=== PATIENT | female | born 1995 | race Caucasian/White ===

== ENCOUNTER 2021-10-09 14:00 | Outpatient (RCR) | payer OTHER, BC, SELFPAY | END 2022-01-30 12:13 | disposition home or self-care (01) | PROVIDERS: Visit Provider Family Medicine | DX: M25.551 Pain in right hip (principal); Z51.89 Encounter for other specified aftercare | CPT/HCPCS: 97110; 97140; 97161 ==

== ENCOUNTER 2021-12-22 20:38 | Outpatient (CLI) | payer OTHER, SELFPAY ==
[2021-12-22] VITALS (11 sets, daily range): BP systolic 126–141; BP diastolic 59–82; PULSE 81–96
[2021-12-22 22:21] LABS: Hemoglobin* 10.9 gm/dL (12.0-16.0); Mean Corpuscular HGB Conc 33 gm/dL (32-36); Mean Corpuscular Hemoglobin 29 pg (26-34); Mean Corpuscular Volume 88 fL (80-100); Platelet Count* 302 K/uL (140-440); Red Blood Count 3.76 m/uL (4.00-5.20); White Blood Count* 13.81 K/uL (4.50-11.00)
[2021-12-22 22:34] LABS: Slide Review Reflex No
[2021-12-22 22:43] LABS: Alanine Aminotransferase* 13 U/L (4-35); Aspartate Amino Transferase* 16 U/L (12-35); Blood Urea Nitrogen* 6 mg/dL (5-24); Creatinine* 0.4 mg/dL (0.5-1.5); Estimated Glomerular Filt Rate 140 ml/min
[2021-12-22 22:52] LABS: Total Protein Urine 14 mg/dL
[2021-12-22 22:53] LABS: Creatinine Urine 35.3 mg/dL
--- NOTE | 2021-12-22 23:14 | PC.OBNST ---
NST Note NST Note Start: 12/22/21 20:49 Freq: ONCE Status: Active Protocol: Document 12/22/21 23:13 FRIDA (Rec: 12/22/21 23:14 FRIDA [id number]) NST Note 1 Para (# of births) 0 EDC 04/03/22 Gestational Age In Weeks & Days 25 Weeks & 3 Days Patient Presented with Complaint(s) of Other If Observation after an injury, describe Blood pressures 140's over 70' s/80's Reactive Yes Appropriate for Gestational Age Yes CHAVEZ Sotomayor, RNC Date 12/22/21 Reactive Yes Appropriate for Gestational Age Yes CHAVEZ Johnson, RN Date 12/22/21 OB NST charge Yes Complete NST Note via Write Note Yes The provider's electronic signature indicates the NST is reactive/appropriate for gestational age. *Note to provider: If an addendum is required, open the patient's chart and click on the note under the Nurse/Allied Health tab.
== END 2021-12-22 23:46 | disposition home or self-care (01) ==
LOC: OB OUT 22:36 → OB 12-23 09:39
PROVIDERS: Visit Provider Family Medicine
DX: O16.2 Unspecified maternal hypertension, second trimester (principal); Z3A.25 25 weeks gestation of pregnancy
CPT/HCPCS: 36415; 59025; 82565; 82570; 84156; 84450; 84460; 84520; 85027; 99213

== ENCOUNTER 2022-02-03 16:25 | Outpatient (CLI) | payer OTHER, BC, SELFPAY ==
[2022-02-03 16:55] VITALS: BP 122/60; PULSE 90; TEMP 37.1
[2022-02-03 17:21] LABS: Amnisure Rom* Negative; Clue Cells <20% Clue Cells Seen (None Seen); Trichomonas No Trichomonas Seen (None Seen); Yeast No Yeast Seen (None Seen)
--- NOTE | 2022-02-03 17:53 | PC.OBNST ---
NST Note NST Note Start: 02/03/22 16:47 Freq: ONCE Status: Active Protocol: Document 02/03/22 17:30 GOMEZ (Rec: 02/03/22 17:53 GOMEZ [id number]) NST Note 1 Para (# of births) 0 EDC 04/03/22 Gestational Age In Weeks & Days 31 Weeks & 4 Days High Risk Factors High Blood Pressure - Gestational Patient Presented with Complaint(s) of Contractions/cramping,Leaking fluid Reactive Yes Appropriate for Gestational Age Yes CHAVEZ Charles Date 02/03/22 Reactive Yes Appropriate for Gestational Age Yes CHAVEZ La Date 02/03/22 OB NST charge Yes Complete NST Note via Write Note Yes The provider's electronic signature indicates the NST is reactive/appropriate for gestational age. *Note to provider: If an addendum is required, open the patient's chart and click on the note under the Nurse/Allied Health tab.
== END 2022-02-03 17:37 | disposition home or self-care (01) ==
LOC: OB CLI 16:26 → OB 16:27
PROVIDERS: Visit Provider Family Medicine
DX: O47.03 False labor before 37 completed weeks of gestation, third trimester (principal); Z3A.31 31 weeks gestation of pregnancy
CPT/HCPCS: 59025; 84112; 87210; 99213

== ENCOUNTER 2022-03-12 16:48 | Inpatient (IN) | payer OTHER, SELFPAY ==
[2022-03-12] VITALS (7 sets, daily range): BP systolic 126–140; BP diastolic 56–75; PULSE 88–109; RESP 14–16; TEMP 36.8–37; BMI 42.3
[2022-03-12] MEDS: miSOPROStoL 25 MCG/0.25 TABLET VAGINAL ×2 (17:47→20:47)
[2022-03-12] MEDS: ACETAMINOPHEN 500 MG TABLET 1000 MG PO (17:47)
--- NOTE | 2022-03-12 17:56 | P.OBHP_ITS ---
OB - H&P: HPI Labor/Induction History of Present Illness Time Seen by Provider: 17:30 Date Seen: 03/12/22 Chief Complaint: The patient is a 26 year old 1 para 0 at 36 6/7 weeks gestation by LMP c/w 9wk US, who presents for cervical ripening for induction d/t gestational htn. Chief complaint: IOL GHTN 37wk david : 1 Para: 0 Date of last menstrual period: 06/27/21 Estimated date of delivery: 04/03/22 Gestational age based on last menstrual period: 36 Indications for induction: induced hypertension Narrative: Silva Arana is a 26 year old 1 para 0 at 36 6/7 weeks gestation by LMP c/w 9wk US, who presents for cervical ripening for induction d/t gestational htn. Gestational htn was diagnosed around 25wks and she has been getting weekly labs, bpp and visits. She had perinatology consult for this around 27wks. See for details. Bp's at home have been below treatment levels. She was admitted to [facility] at 31 6/7 due to persistent headache in setting gestational htn and received betamenthasone. Headache did resolve and so was discharged home. pt reports mild headache now, reports she gets headache whenever is snows and snowing and so she thought nothing of it. Did not take meds. No vision changes. No abdominal pain, ctxs, RUQ pain. Good FM. History of Present Dating criteria: based on LMP care: good care Ultrasounds: normal 1st trimester US, normal mid trimester US and other (has had routine eileen US's. Last one around 32 6/7 wks was 81% EFW) complications: gestational hypertension Medical complications: other Narrative: Gestational htn diagnosed at 25wks. 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 no lesions. Heterozygous for factor V, perinatology rec lovenox 40mg daily x 6wks Labs Blood type: A (+) positive Rubella: immune RPR/VDLR: nonreactive GBS status: negative HBsAG: negative Review of Systems Status of ROS: Reports: 6 or more systems reviewed and unremarkable except as noted in History and below Meds Home Medications and Allergies Home Medications Medication Instructions Recorded Confirmed Type aspirin 81 mg tablet,delayed 81 mg PO DAILY 12/22/21 12/22/21 History release (Adult Low Dose Aspirin) enoxaparin 40 mg/0.4 mL mg 12/22/21 History subcutaneous syringe escitalopram oxalate 10 mg tablet mg 12/22/21 History vit no.95-ferrous 1 tab PO DAILY 12/22/21 12/22/21 History fumarate 28 mg-folic acid 800 mcg tablet () Allergies Allergy/AdvReac Type Severity Reaction Status Date / Time No Known Drug Allergies Allergy Verified 12/22/21 20:56 OB - H&P: Exam Physical Exam: Vital signs: Pulse BP 109 H 140/75 H 03/12/22 17:27 03/12/22 17:27 Constitutional: Constitutional: no acute distress Routine HEENT Exam: Head: Present atraumatic, normal inspection and normocephalic Eye: Present normal appearance ENT: Present mucous membranes moist Detailed Neck Exam: Thyroids: Thyroid: Present normal Routine Respiratory Exam: Respiratory: Present CTA bilaterally Routine Cardiovascular Exam: Cardiovascular: RRR Routine Exam: External: Present normal external exam Detailed Labor and Delivery Exam: Patient Gravid: Yes Dilation (cm): 0 Effacement (%): 10 Cervix position: posterior Consistency: firm Fetus (Single): Station: -2 Heart Rate Baseline: 135 Monitor Accelerations: Present Monitor Decelerations: None Assisted Variability: Moderate (6-25) Routine Extremities Exam: Extremities: Present normal inspection; Absent pedal edema Routine Neurological Exam: Present alert and oriented X3 OB - Problem Based A/P Additional Plan (1) Gestational hyperglycemia: Status: Acute Plan Admit for cervical ripening. Unable to place cook today based on cervix. Plan cytotec induction. discussed with pt and s.o. Preeclamptic labs ordered. gestational htn protocol Tylenol for headache All the above discussed with pt, s.o. and nurse. All ?'s answered and pt in agreement with plan. Delivery/Labor/Induction Plan Induction method: per misoprostol protocol
[2022-03-12 18:43] LABS: SARS PCR* Negative SARS-CoV-2 (Negative)
[2022-03-12 18:48] LABS: Basophils Percent Auto 0.1 % (0.0-3.0); Eosinophils Percent Auto 0.9 % (0.0-7.0); Hematocrit 36.3 % (33.0-51.0); Hemoglobin* 11.8 gm/dL (12.0-16.0); Immature Granulocytes Pct Auto 1.3 %; Lymphocytes Percent Auto 12.3 % (20-44); Mean Corpuscular HGB Conc 33 gm/dL (32-36); Mean Corpuscular Hemoglobin 28 pg (26-34); Mean Corpuscular Volume 86 fL (80-100); Monocytes Percent Auto 4.6 % (0.0-11.0); Neutrophils Percent Auto 80.8 % (42.0-72.0); Platelet Count* 325 K/uL (140-440); RDW Coefficient of Variation % 13.8 % (11.5-15.5); Red Blood Count 4.22 m/uL (4.00-5.20); White Blood Count* 15.64 K/uL (4.50-11.00)
[2022-03-12 18:58] LABS: Slide Review Reflex No
[2022-03-12 19:06] LABS: Alanine Aminotransferase* 19 U/L (4-35); Aspartate Amino Transferase* 21 U/L (12-35); Blood Urea Nitrogen* 5 mg/dL (5-24); Creatinine* 0.4 mg/dL (0.5-1.5); Est. Creatinine Clearance* 222.74; Estimated Glomerular Filt Rate 140 ml/min
[2022-03-12 19:25] LABS: Total Protein Urine 17 mg/dL
[2022-03-12 19:29] LABS: Creatinine Urine 35.3 mg/dL
[2022-03-13] VITALS (41 sets, daily range): BP systolic 114–139; BP diastolic 56–84; PULSE 79–175; RESP 16–17; TEMP 36.9–37.2; O2SAT 96–100
[2022-03-13] MEDS: miSOPROStoL 25 MCG/0.25 TABLET VAGINAL ×2 (01:37→05:53)
--- NOTE | 2022-03-13 06:50 | P.OBPN_ITS ---
Subjective Time Seen by Provider: 06:50 Date Seen: 03/13/22 Narrative: Haley is 26yo at 37wks gestation today admitted last night for cervical ripening prior to induction today due to gestational hypertension. Admit labs did show +urine protein/creatinine so no meets criteria for preeclampsia. Overnight received 4 doses vaginal cytotec--3rd dose was delayed due to variables and decel after tachysystole. pt felt 'cramping' during that time. 4th dose was also delayed as trouble getting consistent strip. 4th dose just given at 5:52. pt turned over on her own around 6:24 and then appears to have had decel--unclear if baby or maternal heart tones. resolved as adjusted monitor. Pt has not felt any cramping or contractions since around midnight. She has no concerns or complaints this morning. Objective Vital Signs: Last Vital Signs Temp 98.6 F 03/13/22 05:50 Pulse 93 03/13/22 05:50 Resp 16 03/13/22 05:50 BP 134/72 03/13/22 05:50 Contractions Monitor mode: External Contraction pattern: Absent Assessment Assessment: induction ongoing Station: -2 Heart Rate Baseline: 130 Assisted Variability: Moderate (6-25) Monitor Accelerations: Present Monitor Decelerations: Episodic (nothing regular, see above summary) Plan Plan: continue cytotec protocol. preecalmpsia protocol
[2022-03-13] MEDS: LACTATED RINGERS 1000 ML 1,000 ML 100 ML IV (09:36)
--- NOTE | 2022-03-13 10:40 | P.OBPN_ITS ---
Subjective Time Seen by Provider: 10:00 Date Seen: 03/13/22 Narrative: Called by RN due to prolonged decel in the 90's. 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 At 9:28 Pfeifer was not picking up so nurse put toco on and FHT's in 90's. Pt turned further on right side and given IVF bolus. FHT's were recovered by 9:35 but then again at 9:40 had decel into 90's that lasted overall 4min and was recovered by 9:44am up into 150's. On my arrival, FHT's were improved and became reactive. Pt reports has not felt contractions but described constant very mild cramping feeling along suprapubic area. Bedside US done and confirms cephalic position. SVE 1cm, 20%, posterior but improved positioning from before. Able to feel infant head and suture line. Discussed situation with patient and SO. Reviewed plan to continue to try for vaginal delivery but if infant continues to have concerning decels may need c/s but not yet as recovered. Plan to monitor to ensure FHT's continue to look good and if so, attempt to place COOK. All ?'s answered. pt in agreement with plan. Objective Vital Signs: Last Vital Signs Temp 98.7 F 03/13/22 10:33 Pulse 93 03/13/22 10:33 Resp 16 03/13/22 10:33 BP 131/64 03/13/22 10:33 Pulse Ox 100 03/13/22 10:20 Comments: see above Pelvic Exam Dilation (cm): 1 Effacement (%): thick Station: -3 Comments: can feel sutures Contractions Monitor mode: External Contraction Frequency: lots of irritability, no contraction pattern Contraction pattern: Absent Assessment Station: -3 Heart Rate Baseline: 135 [facility] Variability: Moderate (6-25) Monitor Accelerations: Present Monitor Decelerations: Prolonged (see above) Plan Plan: see above.
--- NOTE | 2022-03-13 11:33 | PM.OBPNL ---
Subjective Time Seen by Provider: 11:34 Date Seen: 03/13/22 Narrative: Haley reports little cramping, unchanged. No other sxs. no headaches or vision changes. FHT's reactive since 945am without decels Objective Exam: Pt nad, normal affect Cervix: 1/thick/-3 cephalic Vital Signs: Last Vital Signs Temp 98.7 F 03/13/22 10:33 Pulse 93 03/13/22 10:33 Resp 16 03/13/22 10:33 BP 131/64 03/13/22 10:33 Pulse Ox 100 03/13/22 10:20 Pelvic Exam Dilation (cm): 1 Effacement (%): thick Station: -3 Contractions Monitor mode: External Contraction pattern: Absent (lots of irritability) Assessment Assessment: induction ongoing Station: -3 Heart Rate Baseline: 140 [facility] Variability: Moderate (6-25) Monitor Accelerations: Present Monitor Decelerations: None (none since 945) Plan Plan: Cook catheter placed without difficulty Plan low dose pitocin protocol in 4 hours discussed with pt, so and RN
[2022-03-13] MEDS: LACTATED RINGERS 1000 ML 1,000 ML 125 ML IV (11:37)
[2022-03-13] MEDS: hydrOXYzine pamoate 25 MG CAPSULE 100 MG PO (13:49)
[2022-03-13] MEDS: MORPHINE 10 MG/ML inj IM (13:50)
--- NOTE | 2022-03-13 13:53 | PM.OBPNL ---
Subjective Time Seen by Provider: 13:45 Date Seen: 03/13/22 Narrative: Pt reported the cramping from the cook was getting too much for her and she was worried about being exhausted and having long induction and wanted a c/s. I came in to discuss with her in more detail. She is having suprapubic pressure/lower uterine pressure that is constant. She tells me her main concern is having this for 12 hour and then having induction last hours or days longer and she will end up exhausted. Discussed we are still in process of cervical ripening and that we cannot predict length of induction and it can be variable and gave examples. Discussed it can take couple days or longer or once in labor can more quickly, it is often unpredictable. Reviewed reasons we would rec she continue to try for vaginal delivery and discussed risks vs benefits of vaginal delivery vs c/s and risk during procedures and course. Discussed her concerns about exhaustion and labor/ care and mental strength. Discussed option trying Vistaril and morphine to get some rest and help with mental reserve. FHT's overall have been reactive with good accels. She has had few decels but has gone hours with reactive strip as well. Pt wanted me to all the OB surgeon. I called and talked with Dr Edward Cantor and she recommeded pt continue with attempt at vaginal delivery as she did not want to do major surgery on someone if they did not need it. She recommended pt try the vistaril and morphine and get some rest. Dr Edward Cantor did review the pts FHT strip and felt like baby looked good and did not see indiction for c/s at this time. She was willing to come see pt if pt continued to want the c/s. I reviewed this all in more detail with pt and she is willing to try the vistaril and morphine. All ?'s answered. pt in agreement with plan. Of note, we did decrease amount in Cook to 40cc each to try and help with comfort. Objective Vital Signs: Last Vital Signs Temp 98.8 F 03/13/22 11:40 Pulse 99 03/13/22 11:40 Resp 16 03/13/22 11:40 BP 129/61 03/13/22 11:40 Pulse Ox 97 03/13/22 13:48 Pelvic Exam Comments: Cook in place Contractions Monitor mode: External Contraction pattern: Absent (lots of irritability) Assessment Assessment: induction ongoing Station: -3 Heart Rate Baseline: 140 Intermediate Variability: Moderate (6-25) Monitor Accelerations: Present Monitor Decelerations: Variable (none since 945) Plan Plan: pt in agreement to get vistaril and morphine and continue with cervical ripening
[2022-03-13] MEDS: OXYTOCIN 30 unit/500 ML in NS 30 UNIT/500 ML BAG IVPB (17:11)
--- NOTE | 2022-03-13 17:22 | P.OBPN_ITS ---
Subjective Time Seen by Provider: 17:09 Date Seen: 03/13/22 Narrative: pt is now comfortable. got some rest/sleep. awake now and says slight cramping returning but nothing like before. Feels better. Objective Vital Signs: Last Vital Signs Temp 98.8 F 03/13/22 11:40 Pulse 87 03/13/22 16:11 Resp 16 03/13/22 11:40 BP 114/56 L 03/13/22 16:11 Pulse Ox 97 03/13/22 13:48 Pelvic Exam Comments: not assessed as cook in place Contractions Monitor mode: External Contraction pattern: Absent (lots of irritability) Assessment Assessment: induction ongoing Station: -3 Heart Rate Baseline: 130 Detention Variability: Moderate (6-25) Monitor Accelerations: Present Monitor Decelerations: None (none since 94) Plan Plan: pt much more comfortable Again discussed we typically add low dose pitocin and titrate about 4-5 hours after cook placed and reviewed reasons why. Pt was in agreement with starting. Also discussed trying to add back saline to the cook balloons. Initially 60 in each was placed but decreased to 40 when she was so uncomfortable and wanting c/s. She is much more comfortable now. Reviewed adding 5-10 back 1 balloon at a time and pt in agreement. discussed reasons why. Can repeat morphine and vistaril 6 hours from last dose if needed pt with known heterozygous for factor 5. Will get lovenox . Discussed would like to to try and ambulate if able with mobile monitoring and where SCD's if in bed. Reviewed with nursing and pt. pt in agreement with plan. All ?'s answered.
[2022-03-13 17:47] LABS: Platelet Count* 376 K/uL (140-440)
[2022-03-13 18:07] LABS: Alanine Aminotransferase* 19 U/L (4-35); Aspartate Amino Transferase* 19 U/L (12-35); Creatinine* 0.5 mg/dL (0.5-1.5); Est. Creatinine Clearance* 178.19; Estimated Glomerular Filt Rate 133 ml/min
[2022-03-13] MEDS: LACTATED RINGERS 1000 ML 1,000 ML 123 ML IV (19:41)
--- NOTE | 2022-03-13 23:42 | PM.OBPNL ---
Subjective Time Seen by Provider: 23:30 Date Seen: 03/13/22 Narrative: Cook catheter removed by RN. Pt reports no current pain or cramping. She got some sleep. Objective Vital Signs: Last Vital Signs Temp 98.7 F 03/13/22 20:48 Pulse 114 H 03/13/22 20:47 Resp 16 03/13/22 20:48 BP 139/84 03/13/22 20:47 Pulse Ox 97 03/13/22 13:48 Pelvic Exam Dilation (cm): 4 Effacement (%): 50 Station: -2 Comments: Head engaged Contractions Monitor mode: External Contraction pattern: Absent (lots of irritability) Pitocin Rate (mU/min): 5 Assessment Assessment: induction ongoing Station: -2 Amniotic Membrane Status: AROM (at 1133 with clear fluid. ) Status: Category l Heart Rate Baseline: 140 [facility] Variability: Moderate (6-25) Monitor Accelerations: Present Monitor Decelerations: None (none since 945) Plan Plan: Induction for preeclampsia, now s/p 4 doses cytotec, then cook catheter for 12 hours and on low dose pitocin. Cervix now much more favorable. Discussed with pt and she verbally consented for AROM. AROM with clear fluid. Plan continue pitocin per protocol with regular dose pitocin as needed. All ?'s answered.
[2022-03-14] VITALS (85 sets, daily range): BP systolic 83–163; BP diastolic 53–91; PULSE 77–114; RESP 16–18; TEMP 36.8–37.2; O2SAT 90–100
[2022-03-14] MEDS: LACTATED RINGERS 1000 ML 1,000 ML 125 ML IV ×5 (00:33→11:56)
[2022-03-14] MEDS: hydrOXYzine pamoate 25 MG CAPSULE 100 MG PO (02:15)
[2022-03-14] MEDS: MORPHINE 10 MG/ML inj IM (02:16)
[2022-03-14] MEDS: ONDANSETRON 2 MG/ML inj 4 MG IV (03:35)
[2022-03-14] MEDS: ROPIVACAINE 0.2% 100 ml 100 ML 12 MG EPIDURAL (04:12)
[2022-03-14] MEDS: LIDOCAINE 2% (PF) 5 ML VIAL EPIDURAL (04:12)
--- NOTE | 2022-03-14 04:17 | PM.ANBPRC ---
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: Never smoker Meds Home Medications and Allergies Home Medications Medication Instructions Recorded Confirmed Type aspirin 81 mg tablet,delayed 81 mg PO DAILY 12/22/21 03/12/22 History release (Adult Low Dose Aspirin) escitalopram oxalate 10 mg tablet 10 mg PO HS 12/22/21 03/12/22 History vit no.95-ferrous 1 tab PO DAILY 12/22/21 03/12/22 History fumarate 28 mg-folic acid 800 mcg tablet () acyclovir 400 mg tablet mg 03/12/22 History cetirizine 10 mg capsule (Allergy 10 mg PO HS 03/12/22 03/12/22 History Relief (cetirizine)) docusate sodium 100 mg capsule 100 mg PO DAILY 03/12/22 03/12/22 History (Colace) famotidine 10 mg tablet 10 mg PO QHS 03/12/22 03/12/22 History ferrous sulfate 325 mg (65 mg mg 03/12/22 History iron) tablet Allergies Allergy/AdvReac Type Severity Reaction Status Date / Time No Known Drug Allergies Allergy Verified 12/22/21 20:56 Results Labs Labs: Laboratory Results - last 24 hr 03/13/22 03/13/22 17:40 17:40 Plt Count 376 Creatinine 0.5 Estimated Creat Clear 178.19 Estimated GFR 133 AST 19 ALT 19 Vital Signs Vital Signs: Last Vital Signs Temp 98.9 F 03/14/22 01:33 Pulse 97 03/14/22 04:15 Resp 16 03/14/22 01:33 BP 139/76 03/14/22 04:15 Pulse Ox 98 03/14/22 04:12 Weight: 130.181 kg Height: 175.26 cm Anesthesia Procedures Epidural Insertion Start Time: 03:55 Stop Time: 04:30 Start Date: 03/14/22 Stop Date: 03/14/22 Reason for Block: procedure for pain Patient Position: sitting Performed By: Jose Ibrahim Preanesthetic Checklist: IV checked, site marked, risks and benefits discussed, monitors and equipment checked, pre-op evaluation, timeout performed and anesthesia consent Prep: chlorhexidine gluconate Monitoring: blood pressure monitoring, continuous pulse oximetry and heart rate Approach: midline Vertebral Space: lumbar (1-5) Epidural Technique: PARESH saline Needle Type: Tuohy needle Injection Technique: continuous catheter Needle gauge: 17 Needle Length (cm): 10 cm Needle Insertion Depth (cm): 5 Catheter Gauge: 19 Catheter Type: multi-orifice Catheter at skin depth (cm): 10 Test Dose Result: negative
[2022-03-14] MEDS: PHENYLEPHRINE 100 MCG/ML SYRINGE IVP ×2 (04:30→04:35)
--- NOTE | 2022-03-14 05:17 | PM.OBPNL ---
Subjective Time Seen by Provider: 05:17 Date Seen: 03/14/22 Narrative: Called to pt room at 430am due to decel. Prior to this FHT had been reactive. She had AROM around 2333 and FHT remained good. At 0008 she had decel to 90bmp that resolved with changing from left to right side and IVF given. FHT continued to look well after thsi point. At 215 she recieved Morphine and hydroxyzine due to suprapubic pain/cramping that was constant. FHT continued to be category 1 at that time. This did not improve her pain and so she requested epidural. Epidural was done around 4am. At 0418 while on her back she had prolonged decel and was turned to left, then R and IVF given and FHT increased for 2min. Then at 0426 had another decel lasting approxiamtely 4min and moved to hands and knees and pitocin turned off. FHT improved again for 2min and then dropped again to 90bpm, recovered briefly and dropped again to 80bpm. This last 2 decels were about a minute each. While on H&K I checked her cervix and difficult to assess but head felt much lower. Once able she was rechecked on her right side and was 6cm/80/0station. Of note, no low bp's were documented. She did have 1 bp that appeared elevated at 163/87 but this was checked while she was on hands and knees and holding herself up. Recheck bp once on side was 112/64. FHT without further decel this time. Internal contraction monitor placed. Of note, OR crew and OB surgeon was called while pt was on hands and knees due to the recurrent decels. OR crew is currently here. Pt reports she is comfortable at this time. Good relief from epidural. Pitocin remains off. Objective Vital Signs: Last Vital Signs Temp 98.3 F 03/14/22 04:54 Pulse 93 03/14/22 05:13 Resp 18 03/14/22 04:54 BP 122/57 L 03/14/22 05:13 Pulse Ox 98 03/14/22 04:12 Pelvic Exam Dilation (cm): 6 Effacement (%): 80 Station: 0 Contractions Monitor mode: Internal (just placed internal contraction monitor. ) Contraction Frequency: small contractions approximately every 4min now at 5:30 Contraction pattern: Regular (lots of irritability) Pitocin Rate (mU/min): 0 Assessment Assessment: induction ongoing Station: 0 Amniotic Membrane Status: AROM (at 1133 with clear fluid. ) Heart Rate Baseline: 130 [employer] Variability: Moderate (6-25) Monitor Accelerations: Present Monitor Decelerations: Prolonged (see above narrative, now recovered anf 130bpm with moderate variability and +accels and no further decels as of 5:35am) Plan Plan: Induction for gestational hypertension now with preeclampsia due to +urine testing on admit. Prolonged decels currently resolved, off pitocin and monitoring closely. OR crew here. Dr Edward Cantor on her way and will reassess situation. Discussed current situation with pt, and all ?'s answered. Addendum: FHT have continued to be reactive and Dr Edward Cantor rec restarting pitocin at 1/2 dose.
[2022-03-14 06:21] LABS: Hematocrit 35.3 % (33.0-51.0); Hemoglobin* 11.7 gm/dL (12.0-16.0); Mean Corpuscular HGB Conc 33 gm/dL (32-36); Mean Corpuscular Hemoglobin 28 pg (26-34); Mean Corpuscular Volume 86 fL (80-100); Platelet Count* 304 K/uL (140-440); Red Blood Count 4.13 m/uL (4.00-5.20); White Blood Count* 20.59 K/uL (4.50-11.00)
[2022-03-14 06:26] LABS: Slide Review Reflex No
[2022-03-14 06:36] LABS: Alanine Aminotransferase* 17 U/L (4-35); Aspartate Amino Transferase* 18 U/L (12-35); Blood Urea Nitrogen* 5 mg/dL (5-24); Creatinine* 0.5 mg/dL (0.5-1.5); Est. Creatinine Clearance* 178.19; Estimated Glomerular Filt Rate 133 ml/min
[2022-03-14 06:42] LABS: INR 0.96 (0.91-1.10); Prothrombin Time 13.4 Seconds
[2022-03-14 06:43] LABS: Fibrinogen* 638 mg/dL (200-450)
[2022-03-14 07:08] LABS: Total Protein Urine 15 mg/dL
[2022-03-14 07:09] LABS: Creatinine Urine 48.5 mg/dL
[2022-03-14] MEDS: lidocaine HCL 2 % JELLY (TOP) STERILE 6 ML UR (08:18)
--- NOTE | 2022-03-14 08:41 | P.OBPN_ITS ---
Subjective Time Seen by Provider: 08:02 Date Seen: 03/14/22 Narrative: Haley was laying on her back for nursing cares when starting have recurrent late decelerations. She was turned to Left side and pitocin was turned off. IVF. She then had 2 further more subtle lates which then decels resolved. Cervix checked and 6/100%/0 station. New IUPC was placed once FHT stabilized as prior IUPC did not appear to be picking up well. Pt comfortable with epidural. Objective Vital Signs: Last Vital Signs Temp 98.3 F 03/14/22 04:54 Pulse 82 03/14/22 08:36 Resp 18 03/14/22 04:54 BP 108/57 L 03/14/22 08:36 Pulse Ox 98 03/14/22 04:12 Pelvic Exam Dilation (cm): 6 Effacement (%): 100 Station: 0 Comments: IUPC changed Contractions Monitor mode: Internal (just placed internal contraction monitor. ) Contraction pattern: Regular (prior to turning off pitocin) Pitocin Rate (mU/min): 0 Assessment Station: 0 Amniotic Membrane Status: AROM (at 1133 with clear fluid. ) Heart Rate Baseline: 150 [facility] Variability: Moderate (6-25) Monitor Accelerations: Present Monitor Decelerations: Late (see above narrative, now resolved. ) Plan Plan: pt is making labor progress and FHT's will look great for hours and then will have significant decels. She is making progress and was on back when most recent late decels occured. Now resolved. Discussed with Dr Sy OB surgeon ground operations superintendent. If FHT remain improved, will plan to restart pitocin at 1/2 dose and increase per protocol. If concerning decels return and need to turn off pitocin again, likely proceed with c/s. Discussed with pt and and they are in agreement with plan. All 's answered.
[2022-03-14] MEDS: miSOPROStoL 800 MCG/4 TABLET PR (11:34)
[2022-03-14] MEDS: CEFAZOLIN 1 GM inj 3 GM IVP (11:35)
--- NOTE | 2022-03-14 12:04 | CRLHL7_ITS ---
For Patients: As a result of the Century Cures Act, medical imaging exams and procedure reports are released immediately into your electronic medical record. You may view this report before your referring provider. If you have questions, please contact your health care provider. INDICATION: Postoperative section. Emergent section. [place]. Evaluate for foreign bodies. TECHNIQUE: AP portable view of the lower abdomen and upper to mid pelvis. FINDINGS: There is a slender metallic radiodensity projected over the upper to mid lumbar spine extending from the left upper quadrant. This may reflect some sort of stimulation device or epidural access line more likely. Please correlate clinically. No sponges or surgical instruments are identified within the lower abdomen/pelvis. IMPRESSION: Probable epidural line. Please correlate clinically. The examination is otherwise negative. Dictated by Kieran Avery MD @ 03/14/2022 1:39:38 PM (Electronically Signed)
--- NOTE | 2022-03-14 12:19 | PM.OBPNL ---
Subjective Time Seen by Provider: 11:14 Date Seen: 03/14/22 Narrative: Pt reported feeling cramping/pain right lower quadrant and left side completely numb. Was laying on left side. Estefany was utilized by nursing to turn pt to her right side but during this process she was on her back as being transitioned with estefany. She was then repositioned on her right side. During this time FHT deceled into 90's and recovered. BP cuff also went off while moving pt and read 83/53 but pt was being moved during this time and cuff not in correct place. FHT's recovered for 4min and then started having prolonged deceleration which continued to decrease despite moving patient quickly back to her left and then putting on hands and knees. Pitocin had already been turned off during earlier deceleration. IVF were running. Cervix checked and still 6cm, scalp replaced. Code white was called when no improvement with hands and knees. Taken to OR for stat c/s. Objective Vital Signs: Last Vital Signs Temp 98.6 F 03/14/22 08:59 Pulse 94 03/14/22 11:07 Resp 16 03/14/22 08:59 BP 83/53 L 03/14/22 11:07 Pulse Ox 98 03/14/22 04:12 Pelvic Exam Dilation (cm): 6 Effacement (%): 100 Station: 0 Contractions Monitor mode: Internal (just placed internal contraction monitor. ) Contraction pattern: Regular (prior to turning off pitocin) Pitocin Rate (mU/min): 0 Assessment Station: 0 Amniotic Membrane Status: AROM (at 1133 with clear fluid. ) Status: Category lll Heart Rate Baseline: 150 Monitor Decelerations: Prolonged (see above narrative, now resolved. )
[2022-03-14] MEDS: KETOROLAC 30 MG/ML inj IVP ×2 (12:51→18:29)
--- NOTE | 2022-03-14 13:24 | W.ANESCHARGE ---
Anesthesia Charges Start Date/Time Anesthesia Start Date: 03/14/22 Anesthesia Start Time: 11:22 Stop Date/Time Anesthesia Stop Date: 03/14/22 Anesthesia Stop Time: 13:20 Summary Emergency: Yes
--- NOTE | 2022-03-14 13:26 | P.NB_ITS ---
Nerve Block Nerve Block Time Seen by Provider: 13:10 Date Seen: 03/14/22 Type of block requested by surgeon for post-operative analgesia: TAP Side: bilateral Time out performed: Yes Verification of patient name: Yes Verification of date of : Yes Site marking: site marked Name of person performing procedure: olvera Continuous monitoring Was continuous monitoring of O2 sat, B/P, cardiac nurse practitioner, recorded every 15 minutes?: Yes Procedure Checklist: sterile prep, needles and gloves Ultrasound guided. Images saved: Yes Medications given in 5ml increments after negative aspiration: Marcaine %: 0.25 mL: 30 Needle gauge: 20 and Exparel mL: 10 Patient tolerated procedure well: Yes Block Charges Block Charge (with Pro Fee): TAP Bilateral Use of Ultrasound Machine for Block: Yes- US Guidance/pain block
--- NOTE | 2022-03-14 16:23 | P.OBPRC_ITS ---
Procedure Pre-op/Post-op diagnoses: Pre-Op/Post-Op Diagnoses 1. at 37 1/7 weeks 2. Non reassuring hear rate 3. Preeclampsia w/o severe features Procedure Done: only Procedure Details: Procedures Operation Date: 03/14/22 11:30 Actual Procedure Side Surgeon p Section Amina Salamanca MD Electrotype Caster: Amina Salamanca Estimated blood loss (mL): 1,500 Disposition: floor Anesthesia type: General Complications: Uterine atony, hysterotomy extension, intraoperative hemorrhage Narrative: PREOPERATIVE DIAGNOSES: 1. Intrauterine at 37 1 /7 weeks' gestation. 2. Non reassuring heart rate, prolonged deceleration 3. Preeclampsia without severe features POSTOPERATIVE DIAGNOSES: 1.Same, now delivered NAME OF PROCEDURE: Primary low transverse section. ANESTHESIA: General, epidural was still in place COMPLICATIONS: hemorrhage secondary to uterine atony, hysterotomy extension into the lower uterine segment QUANTITATIVE BLOOD LOSS:1500mL DRAINS: Acosta to gravity. FINDINGS: Live-born male , OP presentation, Apgars 5 and 8 at 1 and 5 minutes respectively. weight pending. PROCEDURE: Amandeep candelaria was paged overhead while I was in clinic and received a message from nursing to go immediately to labor and delivery. When I arrived I was notified that telephone services sales representative provider was busy doing another and I was as ked to attend this emergency delivery. I was able to see that the monitor showed a prolonged heart rate deceleration and she was only 6cm dilated. Patient was at this time being emergently transferred to OR 1. Patient was on hands and knees on the bed while transferred and moved to OR bed. She already had a acosta catheter in place. Her abdomen was splashed with Betadine and covered with ster ile drape. Anesthesia proceeded to intubate and procedure was started emergently.A Pfannenstiel skin incision was made with a scalpel about 2 cm above symphysis pubic bone, 8-10 cm in length. This incision was carried down to the underlying layer of fascia with the scalpel. The fascia was incised in the midline and the incision extended laterally. The rectus muscles were then in the midline. The Axel O retractor was then placed into the incision. The lower uterine segment was then incised in a transverse fashion with the scalpel. Upon entry into the uterus, clear amniotic fluid was noted. The uterine incision was extended cephalo caudally with blunt finger fractionation. The head was lifted out of the pelvis and brought to incision easily, the rest of the body was delivered with fundal pressure. The cord was clamped and cut and baby was transferred to the warmer for evaluation. The placenta was delivered spontaneously with umbilical cord traction and fundal massage. The uterus was cleared of all clots and debris. Hysterotomy extension was seen towards the left lower uterine segment of about 5cm. There was also a small extension on the anterior superior wall of the hysterotomy of about 2cm. The uterus was floppy, atonic. Asked to give 1g of TXA, to look for Cytotec and Hemabate. (She did receive 800mcg of cytotec rectally and 2 doses of Hemabate).The hysterotomy extension apex on the lower uterine segment was identified and this was closed in various layers with Vicryl 0 and chromic 2-0. Hemostasis was secured. The anterior uterine wall on the left side hysterotomy extension was also approximated with Vicryl 0. The bilateral broad ligament was identified to be intact. The bladder reflection was mobilized to ensure that hysterotomy extension did not cause any damage to bladder and this was confirmed. Bladder was found intact. The uterine incision was reapproximated in a running locking fashion with a 0 Vicryl suture. A 2nd layer of the same suture was used to imbricate in horizontal fashion. The gutters were inspected and cleared of blood clot. All instruments and retractors were removed. The subfascial tissues were carefully inspected and hemostasis assured. The fascia was reapproximated in a running fashion with a looped 0 Vicryl suture. The subcutaneous tissues were inspected and hemostasis was assured. The subcutaneous fat layer was reapproximated with interrupted sutures of 3-0 Vicryl. The skin was closed in a subcuticular fashion with 4-0 Monocryl. Silver dressing was applied. The patient tolerated the procedure well. Sponge, lap, needle, and instrument counts were reported as correct. Also, due to the emergency nature of procedure an X- Ray was obtained at OR and this confirmed no foreign objects in the abdomen. The patient was taken to the recovery room, awake, and in stable condition. She did receive 2 grams of IV Ancef and 500mg of Azithromycin during surgery. Redkey total score - 1 minute: 5 total score - 5 minute: 8
[2022-03-14] MEDS: ESCITALOPRAM 10 MG TABLET PO (20:59)
[2022-03-15] VITALS (9 sets, daily range): BP systolic 117–137; BP diastolic 72–84; PULSE 96–117; RESP 16–18; TEMP 36.8–37.6; O2SAT 97–100
[2022-03-15] MEDS: KETOROLAC 30 MG/ML inj IVP ×4 (02:38→21:24)
[2022-03-15 07:34] LABS: Hemoglobin* 8.7 gm/dL (12.0-16.0)
[2022-03-15] MEDS: DOCUSATE SODIUM 100 MG CAPSULE PO (08:26)
[2022-03-15] MEDS: ENOXAPARIN 40 MG/0.4 ML INJ SUBCUT (08:58)
--- NOTE | 2022-03-15 12:16 | PM.OBPNCS1 ---
OB - PN: A/P Assessment and Plan (1) S/P section: Problem details: Status post emergent primary under general anesthesia for indication of bradycardia at 37 weeks, 1 day gestation on 03/14/2022 Status: Acute Assessment and Plan: Appropriate postoperative course. (2) Pre-eclampsia affecting puerperium: Status: Acute Assessment and Plan: Normotensive since delivery. Should blood pressures become elevated, I will begin antihypertensive medication. (3) Anemia associated with acute blood loss: Status: Acute Assessment and Plan: Asymptomatic. Begin ferrous sulfate twice daily. (4) Heterozygous factor V Leiden mutation: Status: Acute Assessment and Plan: Continue Lovenox 40 mg subQ daily for thromboprophylaxis for 6 weeks. Plan Plan: routine postop care Comments: Anticipate discharge tomorrow OB - PN: Subj Subjective Date Seen: 03/15/22 Interval history: Silva is a 26 yo G1 now P1-0-0-1 woman who is s/p emergent delivery at 37 1/7 weeks on 03/14/22 in the setting of IOL for preeclampsia without severe features. OB Problem List: 1. [facility] for care, Dr. Yeung 2. Gestational HTN diagnosed at 25wks. Preeclampsia without severe features diagnosed at admit. 3. 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 4. Heterozygous for factor V, perinatology rec lovenox 40mg daily x 6 wks 5. Intrapartum hemorrhage. Narrative: Silva is pain is well managed. She is pumping and also giving her a little bit of formula because of low blood sugars. He is LGA. She denies any heavy bleeding. She is ambulating and urinating without difficulty. She is tolerating regular diet. She is passing flatus but has not yet had a bowel movement. She was started on Lovenox this morning. OB - PN: Obj Exam Physical Exam: Vital signs: Temp Pulse Resp BP Pulse Ox O2 Del Method 98.4 F 96 18 137/79 97 03/15/22 08:25 03/15/22 08:25 03/15/22 08:25 03/15/22 08:25 03/15/22 08:25 03/15/22 08:25 Narrative: General: Pleasant, no acute distress Heart: Regular rate and rhythm, no murmur or gallop Lungs: Clear to auscultation bilaterally Abdomen: Soft, nontender, fundus well below umbilicus, bowel sounds present Incision: Dressing clean, dry, intact Lower extremities: No edema or erythema Urinary Catheter Management: 3-way Urethral: Cath placed during this visit: no OB - PN: Obj Data Labs Labs: Laboratory Results - last 24 hr 03/15/22 07:24 Hgb 8.7 L
[2022-03-15] MEDS: FERROUS SULFATE 325 MG TABLET PO ×2 (13:33→17:38)
[2022-03-15] MEDS: ACETAMINOPHEN 500 MG TABLET 1000 MG PO (17:38)
[2022-03-15] MEDS: ESCITALOPRAM 10 MG TABLET PO (21:29)
[2022-03-16] MEDS: ACETAMINOPHEN 500 MG TABLET 1000 MG PO ×3 (00:32→13:11)
[2022-03-16] MEDS: IBUPROFEN 600 MG TABLET PO ×2 (02:42→09:01)
[2022-03-16 04:15] VITALS: BP 138/84; PULSE 88; RESP 18; TEMP 36.6; O2SAT 98
[2022-03-16 05:48] LABS: Basophils Percent Auto 0.3 % (0.0-3.0); Eosinophils Percent Auto 1.2 % (0.0-7.0); Hematocrit 26.6 % (33.0-51.0); Hemoglobin* 8.9 gm/dL (12.0-16.0); Immature Granulocytes Pct Auto 1.3 %; Lymphocytes Percent Auto 21.5 % (20-44); Mean Corpuscular HGB Conc 34 gm/dL (32-36); Mean Corpuscular Hemoglobin 28 pg (26-34); Mean Corpuscular Volume 85 fL (80-100); Monocytes Percent Auto 6.6 % (0.0-11.0); Neutrophils Percent Auto 69.1 % (42.0-72.0); Platelet Count* 271 K/uL (140-440); RDW Coefficient of Variation % 13.7 % (11.5-15.5); Red Blood Count 3.13 m/uL (4.00-5.20); Slide Review Reflex No; White Blood Count* 12.93 K/uL (4.50-11.00)
[2022-03-16 08:30] VITALS: BP 123/80; PULSE 89; RESP 18; TEMP 36.7; O2SAT 98
[2022-03-16] MEDS: DOCUSATE SODIUM 100 MG CAPSULE PO (09:01)
[2022-03-16] MEDS: FERROUS SULFATE 325 MG TABLET PO (09:02)
[2022-03-16] MEDS: ENOXAPARIN 40 MG/0.4 ML INJ SUBCUT (09:02)
--- NOTE | 2022-03-16 09:56 | PM.OBDSCS1 ---
DS: Providers Provider Date Seen: 03/16/22 Date of admission: 03/12/22 16:48 Primary care physician: Tomasa Gallegos MD Admitting Clinician: Tomasa Gallegos MD Attending Physician on discharge: Amina Salamanca MD Date of Discharge: 03/16/22 DS: Diagnosis Discharge Diagnosis (1) Heterozygous factor V Leiden mutation: Status: Acute (2) Anemia associated with acute blood loss: Status: Acute (3) Pre-eclampsia affecting puerperium: Status: Acute (4) S/P section: Status: Acute Problem details: Status post emergent primary under general anesthesia for indication of bradycardia at 37 weeks, 1 day gestation on 03/14/2022 Exam Narrative: Exam Narrative: General: Pleasant, no acute distress Heart: Regular rate and rhythm, no murmur or gallop Lungs: Clear to auscultation bilaterally Abdomen: Soft, nontender, fundus well below umbilicus, normoactive bowel sounds in all 4 quadrants new line incision clean, dry, and intact. There is no surgical glue above the incision. Lower extremities: 2+ edema bilaterally, no erythema Const: Vital Signs, click to edit/add: Vital Signs - 24 hr 03/15/22 13:25 03/15/22 17:20 03/15/22 22:12 Temperature 98.5 F 98.8 F 98.2 F Pulse Rate [Right Blood Pressure Cuf f] 96 106 H 101 H Respiratory Rate 16 18 18 Blood Pressure [Ri ght Radial Artery] 117/74 136/82 122/72 Pulse Oximetry 97 97 99 Oxygen Delivery Me thod Room Air Room Air Room Air 03/16/22 04:15 Temperature 97.8 F Pulse Rate [Right Blood Pressure Cuf f] 88 Respiratory Rate 18 Blood Pressure [Ri ght Radial Artery] 138/84 Pulse Oximetry 98 Oxygen Delivery Me thod Room Air DS: Data Data Completed and Pending Labs on day of discharge: Labs from last 24 hours 03/16/22 05:42 WBC 12.93 H RBC 3.13 L Hgb 8.9 L Hct 26.6 L MCV 85 MCH 28 MCHC 34 RDW Coeff of Kermit 13.7 Plt Count 271 Neut % (Auto) 69.1 Lymph % (Auto) 21.5 [place] % (Auto) 6.6 Eos % (Auto) 1.2 Baso % (Auto) 0.3 Neut # (Auto) 8.90 H Lymph # (Auto) 2.80 [place] # (Auto) 0.90 Eos # (Auto) 0.20 Baso # (Auto) 0.00 OB - DS: Summary Hospital Course Hospital Course: Silva is a 26 yo G1 now P1-0-0-1 woman who is s/p emergent delivery at 37 1/7 weeks on 03/14/22 in the setting of IOL for preeclampsia without severe features.? OB Problem List: 1.? [facility] for care, Dr. Yeung 2.? Gestational HTN diagnosed at 25wks.? Preeclampsia without severe features diagnosed at admit.? 3.? 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 4.? Heterozygous for factor V, perinatology rec lovenox 40mg daily x 6 wks 5.? Intrapartum hemorrhage.? Blood pressures have been within high normal range throughout her course. Today, on day 2, Silva is doing well. She has not used any oxycodone during her course.? She is .? She denies any heavy bleeding.? She is ambulating and urinating without difficulty.? She is tolerating regular diet.? She is passing flatus but has not yet had a bowel movement. Peripartum Data Procedures: Procedures Operation Date: 03/14/22 11:30 Actual Procedure Side Surgeon p Section Amina Salamanca MD [place] Gender: Male Time Spent with Patient Time attestation: Total time spent providing and/or coordinating discharge services: Discharge Plan Discharge Disposition: Home, Self-Care Date of Admission: 03/12/22 16:48 Attending Provider on Discharge: Amina Salamanca Primary Care Provider: Tomasa Gallegos Condition: Improved Anticipated Discharge Date/Time: 03/16/22 09:59 Discharge Medications: New acetaminophen 500 mg Tablet 1,000 mg PO Q6H PRN (Reason: Pain) Qty: 0 0RF ferrous sulfate 325 mg (65 mg iron) Tablet 325 mg PO BIDWM Qty: 60 0RF docusate sodium 100 mg Capsule 100 mg PO DAILY Qty: 0 0RF ibuprofen 600 mg Tablet 600 mg PO Q6H PRN (Reason: Pain) Qty: 60 0RF oxycodone 5 mg Tablet 5 - 10 mg PO Q4H PRN (Reason: Pain) Qty: 15 0RF enoxaparin 40 mg/0.4 mL Syringe 40 mg subcut Q24H Qty: 10 0RF Lanolin (HPA) 100 % Cream 1 applic topical Q1H PRNQty: 0 0RF polyethylene glycol 3350 [Miralax] 17 gram/dose powder 17 g PO DAILY PRN (Reason: constipation) Qty: 119 0RF Continued escitalopram oxalate 10 mg tablet 10 mg PO HS Label Comments: TAKE 1 TABLET BY MOUTH EVERY MORNING PNV cmb#95-ferrous fumarate-FA [] 28 mg iron- 800 mcg tablet 1 tab PO DAILY famotidine 10 mg tablet 10 mg PO QHS docusate sodium [Colace] 100 mg capsule 100 mg PO DAILY Discontinued aspirin [Adult Low Dose Aspirin] 81 mg tablet,delayed release (DR/EC) 81 mg PO DAILY acyclovir 400 mg tablet Label Comments: TAKE 1 TABLET (400 MG) BY MOUTH THREE TIMES DAILY. ferrous sulfate 325 mg (65 mg iron) tablet Label Comments: TAKE 1 TABLET BY MOUTH EVERY OTHER DAY Allergy Relief (cetirizine) 10 mg capsule 10 mg PO HS Discharge Orders: Discharge Order (Routine); Ordered 03/16/22 Ordered By: Amina Salamanca Activity Detail: No lifting greater than 20 lb for 6 weeks. Nothing per vagina for 6 weeks. Do not submerge incision under water for 3 [address] while using narcotic pain medications. Discharge Diet: Regular Follow Up Appointments: Tomasa Gallegos MD [Primary Care Provider] - Amina Salamanca MD [Staff Physician] - [facility] Inst[facility] Discharge Comments: 5 days for BP check in clinic 2 weeks [facility] [address] visit [address] Dr[address] Yeung
== END 2022-03-16 15:11 | disposition home or self-care (01) | DRG 787 ==
PROVIDERS: Family Medicine; Obstetrics & Gynecology; Admitting Provider Family Medicine; PCP Family Medicine; Visit Provider Obstetrics & Gynecology
PROC: (CPT 59514; principal; 2022-03-14 11:15)
DX: O13.4 Gestational [pregnancy-induced] hypertension without significant proteinuria, complicating childbirth (principal); D62 Acute posthemorrhagic anemia; O99.12 Other diseases of the blood and blood-forming organs and certain disorders involving the immune mechanism complicating childbirth; D68.51 Activated protein C resistance; O98.32 Other infections with a predominantly sexual mode of transmission complicating childbirth; O76 Abnormality in fetal heart rate and rhythm complicating labor and delivery; O14.04 Mild to moderate pre-eclampsia, complicating childbirth; A60.00 Herpesviral infection of urogenital system, unspecified; O72.1 Other immediate postpartum hemorrhage; Z37.0 Single live birth
CPT/HCPCS: 01967; 01968; 36415; 59200; 64488; 74018; 76815; 76942; 82565; 82570; 84156; 84450; 84460; 84520; 85018; 85025; 85027; 85049; 85384; 85610; 86850; 86900; 86901; 87635; 88307; 99140; A9270; C9290; J0330; J0690; J1100; J1650; J1885; J2250; J2270; J2274; J2370; J2405; J2590; J2704; J2795; J3010; J3490; J7120

== ENCOUNTER 2022-04-12 15:46 | Emergency (ER) | payer OTHER, SELFPAY ==
[2022-04-12 16:17] VITALS: BP 156/77; PULSE 110; RESP 22; TEMP 38.1; O2SAT 100; BMI 36.9
== END 2022-04-12 17:35 | disposition left against medical advice (07) ==
LOC: ED 17:33
PROVIDERS: PCP Family Medicine
DX: Z53.21 Procedure and treatment not carried out due to patient leaving prior to being seen by health care provider (principal)

== ENCOUNTER 2022-09-27 04:47 | Emergency (ER) | payer OTHER, SELFPAY ==
[2022-09-27 05:05] VITALS: BP 123/76; PULSE 73; RESP 18; TEMP 36.3; O2SAT 100
--- NOTE | 2022-09-27 05:12 | ED_ITS ---
HPI - Extremity Injury (Upper) General Time Seen by Provider: 05:12 Date Seen: 09/27/22 Chief Complaint: Extremity Pain/Injury, Upper Stated Complaint: Left arm pain, possible clot Time Seen by Provider: 09/27/22 05:12 Source: patient, RN notes reviewed and old records reviewed Mode of arrival: ambulatory Limitations: no limitations History of Present Illness HPI narrative: Patient is a very pleasant 26-year-old who finished 6 month course of Eliquis after having experienced a PE. Patient was noted to have a with her child and was placed on Lovenox for DVT prophylaxis but unfortunately when on to experience left arm pain and left-sided chest pain and was found to be PE. She was placed on Eliquis and completed that course. She has been doing well since then until approximately 48 hours ago when she began experiencing vague pain in her left arm. She states that she had noted this prior to getting the PE last time. She notes nobody ever scanned her arms or legs with ultrasound and thus do not know the origin of the PE. Patient notes that when she lifts her arm up it seems to hurt a little bit worse. She states she cannot really press on any specific area that causes her discomfort but she is gesturing to the deltoid and upper shoulder area. She denies any recent trauma falls or injury to this area. She has not taken anything for the discomfort. She is worried that she has a blood clot. Patient is factor 5 heterozygous as is her sister and her father and other family members. No one else has had a clot in the past. Related Data Home Medications Medication Instructions Recorded Confirmed vit no.95-ferrous 1 tab PO DAILY 12/22/21 03/28/22 fumarate 28 mg-folic acid 800 mcg tablet () docusate sodium 100 mg capsule 100 mg PO DAILY 03/12/22 03/28/22 (Colace) labetalol 200 mg tablet 200 mg PO BID 03/31/22 03/31/22 Previous Rx's Medication Instructions Recorded docusate sodium 100 mg capsule 100 mg PO DAILY #0 caps 03/16/22 enoxaparin 40 mg/0.4 mL 40 mg (0.4 mL) subcut Q24H #10 ea 03/16/22 subcutaneous syringe ferrous sulfate 325 mg (65 mg 325 mg PO BIDWM #60 tabs 03/16/22 iron) tablet ibuprofen 600 mg tablet 600 mg PO Q6H PRN Pain #60 tabs 03/16/22 Allergies Allergy/AdvReac Type Severity Reaction Status Date / Time No Known Drug Allergies Allergy Verified 04/12/22 16:17 Review of Systems Status of ROS: Reports: 6 or more systems reviewed and unremarkable except as noted in History and below Const: Denies: fever or chills ENMT: Denies: neck pain or difficulty swallowing Cardio: Denies: chest pain, swelling of feet/ankles, lightheadedness or shortness of breath with exertion Resp: Denies: shortness of breath or cough GI: Denies: abdominal pain, nausea or difficulty swallowing Musculo: Denies: neck pain PFSH PFSH Medical History Encounter for visit ?Z39.2 - Encounter for routine follow-up (ICD-10) History of abnormal cervical Pap smear (12/28/20) ?Z87.42 - Personal history of other diseases of the female genital tract (ICD-10) Heterozygous factor V Leiden mutation ?D68.51 - Activated protein C resistance (ICD-10) Anxiety ?F41.9 - Anxiety disorder, unspecified (ICD-10) 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 - Herpesviral infection of urogenital system, unspecified (ICD-10) Surgical History S/P section (03/14/22) ?Z98.891 - History of uterine scar from previous surgery (ICD-10) Hx of tympanostomy ?Z98.890 - Other specified postprocedural states (ICD-10) [place] teeth extracted ?K08.409 - Partial loss of teeth, unspecified cause, unspecified class (ICD- 10) H/O colposcopy with cervical biopsy ?Z98.890 - Other specified postprocedural states (ICD-10) Hx of tonsillectomy ?Z90.89 - Acquired absence of other organs (ICD-10) 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 Smoking 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 External ears eyes nose clear heart with regular rate and rhythm without additional heart sounds or murmur. Lungs are clear in all lung ybarra. Examination of the shoulder shows no obvious swelling. Prominence of a superficial vein noted on the biceps. No pain with palpation. Distally pulses are intact as is sensation. Patient has negative impingement signs. Range of motion of shoulder is full. Lower extremities without edema no calf tenderness. Const: Vital Signs, click to edit/add: Vital Signs - 24 hr 09/27/22 05:05 Temperature 97.3 F L Pulse Rate [Left P ulse Oximeter] 73 Respiratory Rate 18 Blood Pressure [Ri ght Forearm] 123/76 Pulse Oximetry 100 Oxygen Delivery Me thod Room Air Course Course Hospital Course: At this time will obtain EKG, basic panel, CBC, troponin. Will call ultrasound in to do ultrasound of left upper extremity. Differential diagnosis does include PE, rotator cuff tendinitis, musculoskeletal pain. Vital Signs Vital signs: Initial Vital Signs Temperature 97.3 F L 09/27/22 05:05 Temperature Source Temporal Artery Scan 09/27/22 05:05 Pulse Rate 73 09/27/22 05:05 Pulse Rhythm Regular 09/27/22 05:05 Respiratory Rate 18 09/27/22 05:05 Blood Pressure 123/76 09/27/22 05:05 Blood Pressure Mean 91 09/27/22 05:05 Blood Pressure Position Sitting 09/27/22 05:05 Pulse Oximetry 100 09/27/22 05:05 Oxygen Delivery Method Room Air 09/27/22 05:05 Vital Signs Temperature 97.3 F L 09/27/22 05:05 Pulse Rate 73 09/27/22 05:05 Respiratory Rate 18 09/27/22 05:05 Blood Pressure 123/76 09/27/22 05:05 Pulse Oximetry 100 09/27/22 05:05 Oxygen Delivery Method Room Air 09/27/22 05:05 Temperature 97.3 F L 09/27/22 05:05 Pulse Rate 73 09/27/22 05:05 Respiratory Rate 18 09/27/22 05:05 Blood Pressure 123/76 09/27/22 05:05 Pulse Oximetry 100 09/27/22 05:05 Oxygen Delivery Method Room Air 09/27/22 05:05 MDM - Extremity Injury (Upper) MDM Narrative Medical decision making narrative: 1. Left shoulder pain-no evidence of PE on ultrasound study. No evidence of right heart strain or elevated troponin. I feel confident 1 troponin is adequate given the ongoing discomfort over 48 hours. This more likely represen ts tendinitis or musculoskeletal pain. Recommend ibuprofen as needed for discomfort. Follow-up with primary MD if not improving. 2. Disposition-home at this time. Return as needed. Medical Records Attestation: I reviewed the patient's medical records. Lab Data Attestation: I reviewed the patient's lab results. Labs: Lab Results 09/27/22 09/27/22 Range/Units 05:21 05:35 WBC 8.31 (4.50-11.00) K/uL RBC 4.77 (4.00-5.20) m/uL Hgb 12.9 (12.0-16.0) gm/dL Hct 39.8 (33.0-51.0) % MCV 83 (80-100) fL MCH 27 (26-34) pg MCHC 32 (32-36) gm/dL RDW Coeff of Kermit 14.1 (11.5-15.5) % Plt Count 326 (140-440) K/uL Neut % (Auto) 57.7 (42.0-72.0) % Lymph % (Auto) 33.2 (20-44) % [place] % (Auto) 5.9 (0.0-11.0) % Eos % (Auto) 2.2 (0.0-7.0) % Baso % (Auto) 0.6 (0.0-3.0) % Neut # (Auto) 4.80 (1.7-7.0) K/uL Lymph # (Auto) 2.76 (0.90-2.90) K/uL [place] # (Auto) 0.50 (0.00-0.90) K/UL Eos # (Auto) 0.18 (0.00-0.50) K/uL Baso # (Auto) 0.05 (0.00-0.30) K/uL Abs Immat Gran (auto) 0.03 (0.00-0.30) K/uL Imm/Tot Granulo (auto) 0.4 % Sodium 139 (135-149) mmol/L Potassium 3.7 (3.6-5.1) mmol/L Chloride 102 (96-114) mmol/L Carbon Dioxide 30 (20-32) mmol/L BUN 15 (5-24) mg/dL Creatinine 0.8 (0.5-1.5) mg/dL Estimated GFR 104 ml/min Glucose 98 (60-115) mg/dL Calcium 9.1 (8.4-10.6) mg/dL POC Troponin I 0.00 L (0.01-0.04) ng/ml Imaging Data Venous US: Attestation: I have reviewed the pertinent imaging results. ECG Data Attestation: I personally reviewed and interpreted this ECG as follows: ECG interpretation date: 09/27/22 Interpretation: EKG by my read shows sinus bradycardia at a rate of 57. No acute ST or T-wave changes are noted. DE and QT intervals within normal limits. No evidence of right heart strain. Discharge Plan Discharge Clinical Impression: Left shoulder pain Qualifiers: Chronicity: acute Qualified Code(s): M25.512 - Pain in left shoulder Patient Disposition: Home, Self-Care Condition: Unchanged Additional Instructions: At this time ultrasound of the left upper extremity is negative for any DVT. Further, EKG does not show evidence of right heart strain which would be present with a large amount PE. Suggest ibuprofen or Tylenol as needed for discomfort. Follow-up with your primary MD for ongoing pain or issues. Return to the emergency room as needed. Prescriptions: No Action PNV cmb#95-ferrous fumarate-FA [] 28 mg iron- 800 mcg tablet 1 tab PO DAILY docusate sodium [Colace] 100 mg capsule 100 mg PO DAILY ferrous sulfate 325 mg (65 mg iron) Tablet 325 mg PO BIDWM Qty: 60 0RF docusate sodium 100 mg Capsule 100 mg PO DAILY Qty: 0 0RF ibuprofen 600 mg Tablet 600 mg PO Q6H PRN (Reason: Pain) Qty: 60 0RF enoxaparin 40 mg/0.4 mL Syringe 40 mg subcut Q24H Qty: 10 0RF Follow Up/Referrals: Tomasa Gallegos MD [Primary Care Provider] - Stand Alone Forms: [employer] Info Instructions
[2022-09-27 05:46] LABS: Basophils Absolute Auto 0.05 K/uL (0.00-0.30); Basophils Percent Auto 0.6 % (0.0-3.0); Eosinophils Absolute Auto 0.18 K/uL (0.00-0.50); Eosinophils Percent Auto 2.2 % (0.0-7.0); Hematocrit 39.8 % (33.0-51.0); Hemoglobin* 12.9 gm/dL (12.0-16.0); Immature Granulocytes Abs Auto 0.03 K/uL (0.00-0.30); Immature Granulocytes Pct Auto 0.4 %; Lymphocytes Absolute Auto 2.76 K/uL (0.90-2.90); Lymphocytes Percent Auto 33.2 % (20-44); Mean Corpuscular HGB Conc 32 gm/dL (32-36); Mean Corpuscular Hemoglobin 27 pg (26-34); Mean Corpuscular Volume 83 fL (80-100); Monocytes Percent Auto 5.9 % (0.0-11.0); Neutrophils Percent Auto 57.7 % (42.0-72.0); Platelet Count* 326 K/uL (140-440); RDW Coefficient of Variation % 14.1 % (11.5-15.5); Red Blood Count 4.77 m/uL (4.00-5.20); White Blood Count* 8.31 K/uL (4.50-11.00)
[2022-09-27 05:47] LABS: Slide Review Reflex No
[2022-09-27 05:57] LABS: Chloride* 102 mmol/L (96-114); Potassium* 3.7 mmol/L (3.6-5.1); Sodium* 139 mmol/L (135-149)
[2022-09-27 06:00] LABS: Blood Urea Nitrogen* 15 mg/dL (5-24); Carbon Dioxide* 30 mmol/L (20-32); Creatinine* 0.8 mg/dL (0.5-1.5); Estimated Glomerular Filt Rate 104 ml/min; Glucose* 98 mg/dL (60-115)
--- NOTE | 2022-09-27 06:00 | CRLHL7_ITS ---
For Patients: As a result of the Century Cures Act, medical imaging exams and procedure reports are released immediately into your electronic medical record. You may view this report before your referring provider. If you have questions, please contact your health care provider. Indication: Swelling and pain. Technique: Ultrasound venous duplex left upper extremity. Compression venous exam was performed using navarro-scale, color Doppler, and spectral Doppler imaging. Comparison: None. Findings: The left internal jugular, subclavian, and axillary veins are patent with normal waveforms. The brachial, basilic, and cephalic veins are fully compressible. Impression: Normal ultrasound of the left upper extremity veins. Dictated by Dexter Reynolds MD @ 09/27/2022 7:26:33 AM (Electronically Signed)
[2022-09-27 06:01] LABS: Calcium* 9.1 mg/dL (8.4-10.6)
[2022-09-27 07:09] VITALS: BP 130/83; PULSE 62; RESP 14; O2SAT 100
[2022-09-27 07:14] VITALS: BP 130/83; PULSE 62; RESP 18; TEMP 36.3
== END 2022-09-27 07:14 | disposition home or self-care (01) ==
PROVIDERS: Emergency Provider Family Medicine; PCP Family Medicine
DX: M25.512 Pain in left shoulder (principal)
CPT/HCPCS: 36415; 80048; 84484; 85025; 93005; 93971; 99284; 99285

== ENCOUNTER 2023-05-19 14:09 | Emergency (ER) | payer BC, SELFPAY ==
[2023-05-19 14:12] VITALS: BP 150/87; PULSE 98; RESP 18; TEMP 36.8; O2SAT 100; BMI 38.4
--- NOTE | 2023-05-19 14:26 | ED.GENADULT ---
HPI - General Adult General Chief complaint: Back Injury/Pain Stated complaint: back and neck pain, shortness of breath Time Seen by Provider: 05/19/23 14:18 History of Present Illness HPI narrative: This 27-year-old female comes in reporting a feeling of shortness of breath and some discomfort in her right mid to upper back radiating around into the lateral chest on the right side. She states that she has a history of a blood clot and has known to have heterozygous factor 5 Leiden mutation. She did have a blood clot about a year ago and was on anticoagulants for a short time then. She is not currently on any anticoagulants. She does not report any cough. She states that she does not have any pain or swelling in any of her limbs. She was advised to come to urgent care to get a D-dimer but chose to come here knowing that she likely will need a CT scan. Related Data Home Medications Medication Instructions Recorded Confirmed docusate sodium 100 mg capsule 100 mg PO DAILY 03/12/22 03/28/22 (Colace) escitalopram oxalate 10 mg tablet 10 mg PO DAILY 05/19/23 05/19/23 (Lexapro) phentermine 30 mg capsule 30 mg PO DAILY 05/19/23 05/19/23 Previous Rx's Medication Instructions Recorded docusate sodium 100 mg capsule 100 mg PO DAILY #0 caps 03/16/22 enoxaparin 40 mg/0.4 mL 40 mg (0.4 mL) subcut Q24H #10 ea 03/16/22 subcutaneous syringe ferrous sulfate 325 mg (65 mg 325 mg PO BIDWM #60 tabs 03/16/22 iron) tablet ibuprofen 600 mg tablet 600 mg PO Q6H PRN Pain #60 tabs 03/16/22 Allergies Allergy/AdvReac Type Severity Reaction Status Date / Time No Known Drug Allergies Allergy Verified 05/19/23 15:25 Review of Systems Status of ROS: Reports: 10 or more systems reviewed and unremarkable except as noted in History and below Narrative: Constitutional: No fevers, no weight gain or loss. Eyes: No discharge. No vision changes. HENT: No congestion, no sore throat, no ear pain. Cardiovascular: No chest pain, no palpitations. Respiratory: No wheezes, no cough. Shortness of breath as described above. Gastrointestinal: No abdominal pain, no vomiting, no diarrhea. Genitourinary: No dysuria, no hematuria. Musculoskeletal: Normal range of motion. Skin: No rashes, no pruritis. Neurological: No dizziness, weakness, sensory change, speech change. Endo/Heme/Allergies: No bruising or bleeding. No polydipsia. Pysch: no suicidality, no anxiety, no insomnia. All other systems reviewed and are negative. 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 - Herpesviral infection of urogenital system, unspecified (ICD-10) Surgical History S/P section (03/14/22) ?Z98.891 - History of uterine scar from previous surgery (ICD-10) Hx of tympanostomy ?Z98.890 - Other specified postprocedural states (ICD-10) [place] teeth extracted ?K08.409 - Partial loss of teeth, unspecified cause, unspecified class (ICD-10) H/O colposcopy with cervical biopsy ?Z98.890 - Other specified postprocedural states (ICD-10) Hx of tonsillectomy ?Z90.89 - Acquired absence of other organs (ICD-10) 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 HEENT: Normocephalic, atraumatic. Neck: Normal range of motion. Nontender. Supple. Heart: Regular. No murmurs. Normal rate. Intact distal pulses. Lungs: Clear to auscultation. No chest discomfort. No wheezes, rhonchi, or rales. Abdomen: Normal bowel sounds. Nontender. No rebound tenderness. Genitalia: Deferred. Back: No midline tenderness. Normal range of motion. Extremities: Normal range of motion. No injury. Skin: Intact. No rash. Warm. No erythema or pallor. Neurologic: No altered sensation. No weakness. Alert and oriented. Psychiatric: No suicidality. No anxiety or depression. No insomnia. Nursing notes and vitals signs are reviewed. Const: Vital Signs, click to edit/add: Vital Signs - 24 hr 05/19/23 14:12 Temperature 98.3 F Pulse Rate [Right Pulse Oximeter] 98 Respiratory Rate 18 Blood Pressure [Ri ght Upper Arm] 150/87 H Pulse Oximetry 100 Oxygen Delivery Me thod Room Air Course Vital Signs Vital signs: Initial Vital Signs Temperature 98.3 F 05/19/23 14:12 Temperature Source Temporal Artery Scan 05/19/23 14:12 Pulse Rate 98 05/19/23 14:12 Respiratory Rate 18 05/19/23 14:12 Blood Pressure 150/87 H 05/19/23 14:12 Blood Pressure Mean 108 H 05/19/23 14:12 Blood Pressure Position Sitting 05/19/23 14:12 Pulse Oximetry 100 05/19/23 14:12 Oxygen Delivery Method Room Air 05/19/23 14:12 Vital Signs Temperature 98.3 F 05/19/23 14:12 Pulse Rate 98 05/19/23 14:12 Respiratory Rate 18 05/19/23 14:12 Blood Pressure 150/87 H 05/19/23 14:12 Pulse Oximetry 100 05/19/23 14:12 Oxygen Delivery Method Room Air 05/19/23 14:12 Temperature 98.3 F 05/19/23 14:12 Pulse Rate 98 05/19/23 14:12 Respiratory Rate 18 05/19/23 14:12 Blood Pressure 150/87 H 05/19/23 14:12 Pulse Oximetry 100 05/19/23 14:12 Oxygen Delivery Method Room Air 05/19/23 14:12 Medical Decision Making MDM Narrative Medical decision making narrative: This patient comes in reporting some feeling of shortness of breath and reproducible discomfort in her right mid to upper back extending around into the right lateral aspect of her chest wall. She has a history of pulmonary embolism and does have Leiden factor 5 mutation. She is not on any anticoagulants. An IV was established and CT imaging is obtained along with labs. Labs and CT imaging all returned with normal results. There is no evidence of pulmonary embolism. Most likely she is experiencing some chest wall pain. Lab Data Labs: Lab Results 05/19/23 05/19/23 Range/Units 14:58 15:00 WBC 8.20 (4.50-11.00) K/uL RBC 4.57 (4.00-5.20) m/uL Hgb 12.7 (12.0-16.0) gm/dL Hct 38.7 (33.0-51.0) % MCV 85 (80-100) fL MCH 28 (26-34) pg MCHC 33 (32-36) gm/dL RDW Coeff of Kermit 13.0 (11.5-15.5) % Plt Count 202 (140-440) K/uL Neut % (Auto) 60.7 (42.0-72.0) % Lymph % (Auto) 32.3 (20-44) % [place] % (Auto) 5.4 (0.0-11.0) % Eos % (Auto) 1.3 (0.0-7.0) % Baso % (Auto) 0.2 (0.0-3.0) % Neut # (Auto) 4.97 (1.7-7.0) K/uL Lymph # (Auto) 2.65 (0.90-2.90) K/uL [place] # (Auto) 0.40 (0.00-0.90) K/UL Eos # (Auto) 0.11 (0.00-0.50) K/uL Baso # (Auto) 0.02 (0.00-0.30) K/uL Abs Immat Gran (auto) 0.01 (0.00-0.30) K/uL Imm/Tot Granulo (auto) 0.1 % Diff Slide Review Acceptable Review (Acceptable) Sodium 138 (135-149) mmol/L Potassium 3.8 (3.6-5.1) mmol/L Chloride 104 (96-114) mmol/L Carbon Dioxide 25 (20-32) mmol/L Anion Gap 9 (7-15) mEq/L BUN 10 (5-24) mg/dL Creatinine 0.7 (0.5-1.5) mg/dL Estimated Creat Clear 126.16 Estimated GFR 121 ml/min Glucose 96 (60-115) mg/dL Calcium 9.4 (8.4-10.6) mg/dL Urine HCG, Qual Negative (Negative) Imaging Data CT scan - chest: Radiologist's impression: No focal consolidations. No pulmonary embolism. Discharge Plan Discharge Clinical Impression: Acute chest wall pain Patient Disposition: Home, Self-Care Condition: Stable Additional Instructions: Continue current plans. Use [id number] medicines as needed and directed. Follow up with MD return if worsening. Prescriptions: No Action phentermine 30 mg capsule 30 mg PO DAILY escitalopram oxalate [Lexapro] 10 mg tablet 10 mg PO DAILY docusate sodium [Colace] 100 mg capsule 100 mg PO DAILY ferrous sulfate 325 mg (65 mg iron) Tablet 325 mg PO BIDWM Qty: 60 0RF docusate sodium 100 mg Capsule 100 mg PO DAILY Qty: 0 0RF ibuprofen 600 mg Tablet 600 mg PO Q6H PRN (Reason: Pain) Qty: 60 0RF enoxaparin 40 mg/0.4 mL Syringe 40 mg subcut Q24H Qty: 10 0RF Follow Up/Referrals: Tomasa Gallegos MD [Primary Care Provider] - Stand Alone Forms: [employer] Info Instructions
--- NOTE | 2023-05-19 14:42 | CT_ITS ---
Patient: VICKY GONZALEZ Facility:?[facility] Patient ID:?[id number] Site Patient ID:?[id number]. Site :?[id number] Study:?CT-Chest ANGIO PE PROTOCOL W/ 95CC ISOVUE 370-05/19/2023 3:28:26 PM Ordering Physician:DANA Final Report: INDICATION: Shortness of breath, chest pain. TECHNIQUE: CT chest PE was acquired with 100 cc Omnipaque 350 IV contrast. COMPARISON: None. FINDINGS: Heart and vasculature: Contrast opacification of the pulmonary arterial tree is adequate. No sign of pulmonary embolism. Heart size is normal. Thoracic aorta and pulmonary artery are normal in caliber. Lungs and pleura: No suspicious nodules or infiltrates. No pleural effusions, pleural thickening, or pneumothorax. Lymph nodes/mediastinum: No mediastinal, hilar, or axillary adenopathy. Chest wall: No masses. Upper abdomen: No acute or significant findings. Bones: Unremarkable for age. IMPRESSION: No pulmonary embolism as questioned. No focal consolidations. Please note that all CT scans at this facility use dose modulation, iterative reconstruction, and/or weight-based dosing when appropriate to reduce radiation dose to as low as reasonably achievable. Dictated by Reynold Baig MD @ 05/19/2023 3:49:04 PM Signed by:?Reynold Baig MD @05/19/2023 3:49:04 PM (Electronic Signature)
[2023-05-19 15:11] LABS: Basophils Absolute Auto 0.02 K/uL (0.00-0.30); Basophils Percent Auto 0.2 % (0.0-3.0); Eosinophils Absolute Auto 0.11 K/uL (0.00-0.50); Eosinophils Percent Auto 1.3 % (0.0-7.0); Hematocrit 38.7 % (33.0-51.0); Hemoglobin* 12.7 gm/dL (12.0-16.0); Immature Granulocytes Abs Auto 0.01 K/uL (0.00-0.30); Immature Granulocytes Pct Auto 0.1 %; Lymphocytes Absolute Auto 2.65 K/uL (0.90-2.90); Lymphocytes Percent Auto 32.3 % (20-44); Mean Corpuscular HGB Conc 33 gm/dL (32-36); Mean Corpuscular Hemoglobin 28 pg (26-34); Mean Corpuscular Volume 85 fL (80-100); Monocytes Percent Auto 5.4 % (0.0-11.0); Neutrophils Absolute Auto 4.97 K/uL (1.7-7.0); Neutrophils Percent Auto 60.7 % (42.0-72.0); Platelet Count* 202 K/uL (140-440); Red Blood Count 4.57 m/uL (4.00-5.20)
[2023-05-19 15:15] LABS: Ur HCG Qualitative* Negative (Negative)
[2023-05-19 15:39] LABS: Chloride* 104 mmol/L (96-114)
[2023-05-19 15:40] LABS: Potassium* 3.8 mmol/L (3.6-5.1); Sodium* 138 mmol/L (135-149)
[2023-05-19 15:42] LABS: Anion Gap 9 mEq/L (7-15); Carbon Dioxide* 25 mmol/L (20-32); Creatinine* 0.7 mg/dL (0.5-1.5); Est. Creatinine Clearance* 126.16; Estimated Glomerular Filt Rate 121 ml/min
[2023-05-19 15:43] LABS: Blood Urea Nitrogen* 10 mg/dL (5-24); Calcium* 9.4 mg/dL (8.4-10.6); Glucose* 96 mg/dL (60-115)
[2023-05-19 15:45] LABS: Slide Review Reflex Yes
[2023-05-19 15:46] LABS: Slide Review Acceptable Review (Acceptable)
== END 2023-05-19 16:05 | disposition home or self-care (01) ==
PROVIDERS: Emergency Provider Emergency Medicine Emergency Medical Services; PCP Family Medicine
DX: R07.89 Other chest pain (principal)
CPT/HCPCS: 36415; 71275; 80048; 81025; 85025; 99284; 99285; Q9967

== ENCOUNTER 2023-09-08 20:57 | Outpatient (CLI) | payer BC, SELFPAY ==
--- OUTSIDE RECORDS SUMMARY | 2023-09-08 20:59 | XMS_ITS | Clinical Summary ---
Author Organization [facility] Address [place], [place] [address] Care Team Providers Care Hub Bander Name Role Phone Tomasa Gallegos MD Primary Care Provider Allergies No known active allergies Medications Medication Sig Dispensed Refills Start Date End Date Status LORazepam (ATIVAN) 0.5 mg tabIndications:Ag oraphobia Take 1-2 Tablets (0.5-1 mg) by mouth every 6 hours if needed for Anxiety. 10 Tablet 02/11/2023 Active escitalopram oxalate (LEXAPRO) 10 mg tabletIndications :Anxiety TAKE 1 TABLET BY MOUTH EVERY DAY IN THE MORNING 90 Tablet 1 07/25/2023 Active albuterol HFA (PRO-AIR; VENTOLIN; PROVENTIL) 90 mcg/actuation inhalerIndication s:Exercise-induce d asthma Inhale 2 Puffs by mouth every 4 hours if needed for Shortness Of Breath or Wheezing. 1 Each 5 09/07/2023 Active albuterol HFA (PRO-AIR; VENTOLIN; PROVENTIL) 90 mcg/actuation inhalerIndication s:Exercise-induce d asthma Inhale 1-2 Puffs by mouth every 4 hours if needed. 1 Each 5 12/28/2020 09/07/2023 Discontinued (Reorder (E-cancel not sent)) phentermine (ADIPEX-P) 37.5 mg tabletIndications :Class 2 severe obesity with body mass index (BMI) of 35 to 39.9 with serious comorbidity (HC) Take 1 Tablet (37.5 mg) by mouth once daily before a meal. 30 Tablet 07/10/2023 08/27/2023 Discontinued (*Med complete/Reg imen complete/Lev el of care change) Hospital, Clinic, or Other Facility Administered Medication Ordered Dose Route Frequency Start Date End Date Status copper intrauterine device (PARAGARD)Indications:Encoun ter for IUD insertion 1 Device IU Q 10 YEARS 02/11/2023 Act vinod Active Problems Problem Noted Date Diagnosed Date [facility] Encounter for Preconception Consultation Overview: [facility] PRECONCEPTION Virtual CONSULTATION ON 11/07/22 Previous [facility] CONSULTATION ON 01/08/22 with CB- gHTN REASON FOR CONSULT: prepreg consult for next mgmt TODAY'S APPOINTMENT: MD Consultation PRIMARY DIAGNOSIS: 27 y.o. Factor V, heterozygous 02/2022 Term C/S with Pre-E - gHTN - Taking Lovenox PP and developed bilateral pulmonary emboli with moderate to large clot burden. No evidence of RV strain seen.@ 4 wks PP - Was on Eliquis x 6 months (when did she stop? ) Hx LEEP 09/2022 procedure showing YULIANA 2 BMI 39 2020 Hx Superficial thrombus in great saphenous vein- not technically DVT but treated with anticoagulation x 45 days Thrombophilia work up 10/2020 Anxiety HSV REFERRING PHYSICIAN/PHONE/LAST UPDATE: Tomasa Gallegos [place] [phone] Primary MD approves scheduling of recommended ultrasounds/testing: Yes SPECIALISTS/CONSULTS: Include: Specialty MD Clinic Name Phone# [facility] and ADDED TO PATIENT CARE TEAM Urmila Tena MD Hemaotology/Oncology [facility] 10/2022 NV 10/27/22 Patients with a high d dimer after completion of anticoagulation have an increased risk for another thrombotic event than those with a negative d dimer. Her risk will be even higher with . GENETICS: PROCEDURES: 10/17/22 venous US 1. Negative for acute DVT in the lower extremities. 2. The right peroneal veins were not visualized. 10/17/22 CT 1. Resolution of the described of bilateral pulmonary artery emboli. 2. No acute abnormality. 3. Evidence of previous granulomatous disease. ECHO 04/14/22 1. Normal LV size, normal wall thickness, normal function with an estimated EF of 70 - 75%. 2. Right ventricular cavity size is normal, global systolic RV function is normal. 3. No significant valve disease detected. 4. Normal estimated pulmonary pressure (24 mmHg plus RAP). PERTINENT LABS: D-Dimer 10/06/22 1.03; 10/17/22 0.91; PERTINENT MEDS: Lovenox 120 mg subcutaneous once daily. Romario PATTERSON PLAN OF CARE: 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 Pre-eclampsia affecting puerperium 10/01/2022 Acute pulmonary embolism without acute cor pulmo nale 04/13/2022 Mild intermittent asthma without complication H/O emergency section 03/18/2022 History of gestational hypertension 03/18/2022 Anemia associated with acute blood loss 03/14/19 COVID-19 affecting in second trimester 01/08/2022 Gestational hypertension 12/23/2021 Factor V Leiden mutation affecting Overview: [facility] recs: #??Factor V Leiden Heterozygosity: Mutations in Factor V Leiden represent the most common inherited thrombophilia and is most commonly seen in the population. Heterozygosity is present in 1-15% of the general population (homozygosity is seen in <1%). The risk of VTE per is low in a patient with no prior history of VTE (no more than 5-01/1000 deliveries). In women with a prior history of VTE and FVL heterozygosity, the risk of VTE in increases to 10%. However, due to the frequency of this mutation in the general population, FVL heterozygous patients account for 40% of VTE cases during . Silva does not have a personal history of VTE, just superficial thrombosis. - Antepartum anticoagulation is not indicated for this low-risk thrombophilia with no personal history of VTE. Could consider discontinuing LMWH at this time. Silva plans to discuss this further with her primary OB - anticoagulation is recommended for 6 weeks due to concurrent maternal obesity, particularly if Silva develops preeclampsia or has a C- section/prolonged immobilization. Recommend Lovenox 40mg SQ daily. Anxiety 01/09/2021 Exercise-induced asthma 01/09/2021 Heterozygous factor V Leiden mutation 12/28/2020 Overview: heterozygous YULIANA III (cervical intraepithelial neoplasia III) 06/16/2017 Overview: 06/2017 LSIL 11/2018 ASCUS/HPV+ 11/2019 LSIL 12/2019 [place]: YULIANA I, ECC Benign 12/2020 LSIL/HPV+, HPV 16/18 negative 04/2022 HSIL/ HPV+, HPV 16/18 negative 05/2022 [place]: YULIANA 2-3 09/2022 LEEP: YULIANA 2-3 01/2023 LSIL-H/HPV+, HPV 16/18 negative Provider plan: Colposcopy Disorder of nutrition 04/03/2010 Resolved Problems Problem Noted Date Diagnosed Date Resolved Date Obesity affecting in second trimester 01/08/2022 06/08/2023 [facility] Supervision of high-risk 01/02/2022 11/04/2022 Overview: [facility] CONSULTATION ON 01/08/22 REASON FOR CONSULT: Gestational hypertension TODAY'S APPOINTMENT: MD Consultation PRIMARY DIAGNOSIS: 26 y.o. Estimated Date of Delivery: 04/03/22 gHTN diagnosed at 25w-getting weekly labs and weekly BP checks Factor V, heterozygous COVID-19 @17w BMI 39 Anxiety HSV LAST GROWTH: 12/18/21 26w0d EFW 906 grams, percentile: 92 11/14/21 21w0d EFW 377 grams, percentile: 87 08/30/21 9w3d REFERRING PHYSICIAN/PHONE/LAST UPDATE[phone] Primary MD approves scheduling of recommended ultrasounds/testing: No SPECIALISTS/CONSULTS: Include: Specialty MD Clinic Name Phone# [facility] and ADDED TO PATIENT CARE TEAM Yes CARE COORDINATION: GENETICS: PROCEDURES: PERTINENT LABS: Labs reviewed? Yes Normal? Yes 12/31/21 PreE labs WNL xPCR 0.1 PERTINENT MEDS: Lovenox 40mg QD Lexapro Preferred delivery location: PLAN OF CARE: Gestational hypertension, third trimester 01/01/2022 03/18/2022 Overview: Diagnosed at 25wks--initially thought preeclampsia as Ur prot/Cr ratio at hospital 0.3. However 24 hour urine protein and repeat Urine protein Creatinine ratio were below preeclampsia threshold so diagnosis is gestational hypertension. Will get weekly labs, weekly BP checks, weekly BPP. Discussed daily home blood pressure and kick counts. Will need growth US [id number]--ign just had growth US on 12/20/21 so will get repeat in 4 weeks scheduled and can do with BPP. MPP consult MPP Recs below: Severity: 25% will have signs/symptoms of severe disease. 1. severe HTN systolic BP >160 mmHg or diastolic BP >110 mmHg on 2 occasions at least 4 hours apart or only once if treated 2. severe and/or persistent headache 3. visual abnormalities 4. nausea and vomiting 5. dyspnea, chest pain 6. altered mental status 7. microangiopathic hemolytic anemia 8. platelets < 100,000/microL 9. elevated creatinine > 1.1 mm/dL or > 2x normal 10. elevated LFTs (2x normal). ?? Severe gestational hypertension (based on severe BP) should be treated the same way as preeclampsia with severe features - admission, antihypertensive treatment (both short and long acting) and delivery at 34 weeks'. ?? We reviewed the data to support aspirin prophylaxis. Low dose aspirin decreases the risk of preeclampsia by ~20% and is recommended until delivery. There have not been other preventative strategies or supplements identified to decrease recurrence. ?? There is an increased risk of cardiovascular disease in later life (including coronary artery disease, cardiomyopathy, hyperlipidemia, and type 2 diabetes). ?? - Recommend continuation of low dose ASA until delivery - Recommend routine care with BP check at every visit - should be seen weekly given diagnosis of gHTN - Baseline HELLP labs have been drawn and are normal - agree with checking weekly, including urine PCR. If PCR is >0.3, then no longer needs to be checked, as the degree of proteinuria does not dictate disease severity, just confirms a diagnosis of preeclampsia. - Admission is recommended for any severe features - Betamethasone for FLM (12mg IM x2 doses 24h apart) recommended if any severe features - Mag sulfate 4g IV bolus for neuroprotection recommended if any severe features <32 weeks - Recommend growth ultrasounds every 4 weeks - would suggest next ultrasound be with MPP, as pt has not had a level 2 anatomic survey for maternal obesity or COVID- 19 in . - Umbilical artery Dopplers are NOT indicated in the absence of growth restriction. - Recommend weekly testing with BPP/NST until delivery due to gHTN - If BP >150/95, recommend BP meds (given mild tachycardia, labetalol would be a good first line agent starting at 200mg BID and uptitrating to a max dose of 2400mg/24h). - If any additional severe HTN, even if non-sustained, would have a low threshold for in-hospital observation for BMZ, mag for neuroprotection, labs & monitoring. If no sustained severe HTN, could continue outpatient mgmt at that point but if sustained or recurrent, the would keep inpatient until delivery - Delivery recommended at 37 weeks - 34 weeks' if severe HTN - If severe gHTN or preeclampsia, magnesium for seizure prophylaxis is recommended intrapartum and to continue x24h - BP should be <130/80 for discharge home - Recommend PCP follow up annually after to ensure routine preventative care, including BP checks, lipid screening, and diabetes screening ? Preeclampsia, third trimester 12/23/2021 01/01/2022 Primigravida in first trimester 09/01/2021 03/18/2022 Overview: Known Factor V, heterozygous with prior history superficial thrombosis. No history DVT. Initially started on lovenox 40mg twice daily until 36wks but stopped after MPP consult as below. Per MPP: Antepartum anticoagulation is not indicated for this low-risk thrombophilia with no personal history of VTE. Could consider discontinuing LMWH at this time. - anticoagulation is recommended for 6 weeks due to concurrent maternal obesity, particularly if Silva develops preeclampsia or has a C- section/prolonged immobilization. Recommend Lovenox 40mg SQ daily. 12/23/21 Gestational HYPERTENSION. See MPP recs. Treat if BP >150/95. Goal to d/c < 130/80 +COVID-19 at 17wks 25wk US: EFW = 92%. FOC had large head and was 9+ pounds at 34wks. Patient was 8+# at 41+weeks. EFW 92% at 24 wks. 82% level 1 on 01/15/22, level 2 on 01/17/22= 55% History genital HSV, need prophylaxis starting 36 weeks On Lexapro History CIN1, needs Pap smear/HPV It's a boy! Estimated Date of Delivery: 04/03/22 Patient's last menstrual period was 06/27/2021. Last Tdap- 08/09/2007 Last Flu vaccine- 02/01/2014 Glucose (GTT) result- Component Latest Ref Rng & Units 12/23/2021 HEMOGLOBIN 12.0 - 16.0 g/dL 11.1 (L) MCV 80 - 100 fL 88 GLUCOSE,GESTATIONAL 65 - 140 mg/dL 121 TREPONEMA PALLIDUM Negative Negative 20 week US: FINDINGS: Sonographic imaging demonstrates a single living intrauterine gestation. Fetus demonstrates a regular cardiac rate of 152 beats per minute. Fetus has a vertex position. The placenta lies posteriorly without evidence of placenta previa. Amniotic fluid volume appears normal. Single deepest vertical pocket: 4.8 cm. The composite ultrasound gestational age is calculated at 21 weeks 0 days with an estimated sonographic due date of 03/27/2022. IMPRESSION: Sonographic gestational age 21 weeks 0 days and sonographic due date 03/27/2022. Sonographic age 1 week ahead of the clinical age GBS NEGATIVE No Known Allergies OB History Para Term AB Living 1 0 0 0 0 0 SAB IAB Ectopic Multiple Live Births 0 0 0 0 0 # Outcome Date GA Lbr Artie/2nd Weight Sex Delivery Anes PTL Lv 1 Current Create lab flowsheet for OB labs- Component Latest Ref Rng & Units 08/08/2021 09/20/2021 09/20/2021 1:29 PM 1:29 PM ANTIBODY SCREEN Negative Negative SPECIMEN EXPIRATION DATE/TIME 09/23/21 23:59 HEMOGLOBIN 12.0 - 16.0 g/dL 12.4 MCV 80 - 100 fL 87 RUBELLA IGG ANTIBODY Positive CHLAMYDIA PROBE N GONORRHOEAE PROBE HCG BETA QUANT, mIU/mL 26,131 TREPONEMA PALLIDUM Negative Negative ABORH A Rh Positive HIV-1/HIV-2 ANTIBODY Non-Reactive Non-Reactive HBSAG Nonreactive Nonreactive Component Latest Ref Rng & Units 09/20/2021 09/20/2021 1:29 PM 1:33 PM ANTIBODY SCREEN Negative SPECIMEN EXPIRATION DATE/TIME HEMOGLOBIN 12.0 - 16.0 g/dL MCV 80 - 100 fL RUBELLA IGG ANTIBODY 1.58 CHLAMYDIA PROBE Negative N GONORRHOEAE PROBE Negative HCG BETA QUANT, mIU/mL TREPONEMA PALLIDUM Negative ABORH HIV-1/HIV-2 ANTIBODY Non-Reactive HBSAG Nonreactive Past Medical History: . Date ? ? LGSIL of cervix of undetermined significance 12/28/2020;11/2019;06/201712/28/2020 LSIL/HPV+, HPV 16/18 negative Plan: Pap/HPV due 12/2021 Past Surgical History: . Laterality Date ? ? COLPOSCOPY 01/04/2021 YULIANA I, ECC Benign ? ? TONSIL AND ADENOIDECTOMY 09/22/00 ? ? TYMPANOSTOMY 06/20/96 ? ? WISDOM TEETH EXTRACTION No data on file. Problems (from 09/26/21 to present) No problems associated with this episode. Gerda Fraser RN.....09/30/2021 1:30 PM History of abnormal cervical Pap smear 12/28/2020 02/20/2023 Encounters Date Type Department Care Team Description 09/04/2023 10:30 AM CDT Telemedicine [facility] [address] [facility] [address] [place] [address] [facility] Appointment 08/27/2023 9:15 AM CDT Office Visit [facility] [address] [place] [address] Tomasa Gallegos MD Medication Management (Phentermine); Follow Up (During the sleep study was told to follow up on heart rate as it seemed a bit high) 08/27/2023 Travel 08/23/2023 Travel 08/18/2023 1:40 PM CDT Telemedicine [facility] [address] [place] [address] Mercy Cruz NP Sleep Consult; Telehealth (no vitals taken) 08/17/2023 Travel 07/24/[address] [address] Tomasa Gallegos MD Refill Request (Escitalopram Oxalate) 07/10/2023 2:00 PM CDT Office Visit [facility] [address] [place] [address] Tomasa Gallegos MD Medication Management (Phentermine) 07/10/2023 Travel 07/05/2023 Travel 06/30/2023 3:45 PM CDT Orders Only [facility] [address] [place] [address] Lab, [facility] 06/30/2023 Travel 06/23/2023 8:30 AM CDT Nurse/Clinic Staff Only [facility] [address] [place] [address] Testing (HST Download ) 06/22/2023 2:45 PM CDT Nurse/Clinic Staff Only [facility] [address] [place] [address] [address] Testing (HST Set-up) 06/22/2023 Procedure Only [facility] [address] [place] [address] [address] Denilson Guy MD Results (HST) 06/22/2023 Travel 06/19/2023 Travel from Last 3 Months Immunizations Name Administration Dates Next Due AMB Influenza, IIV3 (Age >=3 years)(Flu Clinic Only) 12/27/2009,01/20/2008 DTaP 08/10/2000,04/19/1997 DTaP-HIB (TriHIBIT) 06/07/1996,01/28/1996,1995 Hepatitis A (Adult) 09/17/2015 Hepatitis B (Peds) 06/07/1996,01/28/1996, 996 Human Papilloma Virus Vaccine 06/27/2011, 012,12/23/2010 Influenza Virus, Unspecified 11/29/2008 Influenza, IIV3 (Age 6-35 mos) 02/25/2012,2010 Influenza, IIV3 (Age >=3 years) 12/23/2010,12/27,01/20/2008 Influenza, IIV4 02/01/2014 MMR 08/10/2000,11/08/1996 Meningococcal Vaccine (Menveo) 08/13/2012 Rabavert 03/05/2023,,02/23/2023,01/05 /2024 Td (Age >=7 Years) 07/16/2018 Tdap 01/21/2022,08/09/2007 Varicella Vaccine 08/09/2007,12/11/1998 Family History Medical History Relation Name Comments Good Health Father Diabetes Maternal Grandfather Good Health Maternal Grandmother Other Mother pre-diabetes Good Health Paternal Grandfather Thyroid Disease Paternal Grandmother Grav e's Disease No Known Problems Sister No Known Problems Son Stevenson Relation Name Status Comments Father Alive Maternal Grandfather Alive Maternal Grandmother Alive Mother Alive Paternal Grandfather Alive Paternal Grandmother Alive Sister Alive Son Stevenson Alive Social History Tobacco Use Types Packs/Day Years Used Date Smoking Tobacco: Never Passive Smoke Exposure: Never Smokeless Tobacco: Never Tobacco Cessation:Counseling Given: Yes Alcohol Use Standard Drinks/Week Comments Yes 0 (1 standard drink = 0.6 oz pur e alcohol) Rarely PHQ-2 Answer Date Recorded PHQ-2 TOTAL SCORE 0 08/27/2023 Social Connections Answer Date Recorded Frequency of Communication with Friends and Fami ly 0 05/04/2023 Financial Resource Strain Answer Date R ecorded Difficulty of Paying Living Expenses 3 05/04/2023 Difficulty of Paying Living Expenses Not on file 05/04/2023 Food Insecurity Answer Date Recorded Worried About Running Out of Food in the Last Ye ar 1 05/04/2023 Transportation Needs Answer Date Record ed Lack of Transportation (Medical) 1 05/04/2023 Housing Stability Answer Date Recorded Unable to Pay for Housing in the Last Year 1 05/04/2023 Education Answer Date Recorded What is the highest level of school you have completed or the highest degree you have received? Master's degree (e.g., MA, MS, Faviola, MEd, SCHOOL BUS AIDE, ROSSY) 11/07/2022 Sex and Gender Information Value Date Recorded Sex Assigned at Not on file Gender Identity Not on file Sexual Orientation Not on file Obstetrics History Para Term AB IAB SAB Ectopic Multiple Livin g Live Births 1 1 1 0 0 0 0 0 0 1 1 Date Outcome GA Total Labor Labor/2nd/3rd Weight Sex Type Anes PTL Soledad A1 A5 Name Clin 2022 Term 37w 1d C-Sec tion Living Stevenson Last Filed Vital Signs Vital Sign Reading Time Taken Comments Blood Pressure 121/64 08/27/2023 9:21 AM CDT Pulse 89 08/27/2023 9:21 AM CDT Temperature 36.8 ??C (98.3 ??F) 02/20/2023 9:13 PM CS T Respiratory Rate 20 02/20/2023 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 Oxygen Saturation 99% 08/27/2023 9:21 AM CDT Inhaled Oxygen Concentration - - Weight 117 kg (258 lb) 08/27/2023 9:21 AM CDT Height 175.3 cm (5' 9) 08/27/2023 9:21 AM CDT Body Mass Index 38.1 08/27/2023 9:21 AM CDT Plan of Treatment Upcoming Encounters Date Type Department Care Team (Late st Contact Info) Description 09/18/2023 8:25 AM CDT Office Visit [facility] [address], [place] [id number] Tomasa Gallegos MD [address] [place] [address] 09/22/2023 2:05 PM CDT Telemedicine [facility] [address] [place] [address] Mercy Cruz NP [address] [place] [address] Health Maintenance Due Date Last Done Comments Hepatitis C screening for age 18-79 10/05/2013 COVID-19 vaccine series ( season) 2022 Influenza for age 9-49 10/18/2023 4, 12/23/2010, 12/27/2009, Additional history exists BMI (ht and wt on same day) for age 18+ 08/26/2024 08/27/2023, 07/10/2023, 05/08/2023, Additional history exists Depression screening for age 12+ 08/26/2024 08/27/2023, 03/29/2021, 12/28/2020, Additional history exists Pap test for age 21-65 04/13/2026 4 (Verified in Care Everywhere or Patient Record), 02/11/2023, 02/11/2023, Additional history exists Tetanus booster 01/22/2032 01/21/2022, 0502/2018, 08/09/2007 HIV for age 15-65 Completed 09/20/2021 Tdap Completed 01/21/2022, 08/09/2007 Pneumococcal series for age 6-64 Aged Out No longer eligible based on patient's age to complete this topic Medical Devices Explanted Type Area Veneer Stapler Device Identifier Shelf Expiration Date Model / Serial / Lot Iud Explanted:Qty: 1 on 10/01/2022 at [facility] Iud Explanted:Qty: 1 on 10/01/2022 by Vida Post MD at [facility] N/A: Uterus Procedures Procedure Name Priority Date/Time Associated Diagnosis Comments TSH WITH REFLEX Routine 06/30/2023 3:49 PM CDT Thyroid disorder screen HOME SLEEP TEST TYPE 3 PORTABLE Routine 06/22/2023 11:59 PM CDT Loud snoring Daytime somnolence HPV THIN PREP Routine 02/11/2023 9:45 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 Correlation with clinical findings such as presence of goiter and/or Thyroperoxidase (TPO) Antibody may be helpful. For more information please refer to SO 2004; 291: 228-238. Tomasa Gallegos MD CHEMISTRY [facility] [address] [place] [address], * HOME SLEEP TEST TYPE 3 PORTABLE (06/22/2023 11:59 PM CDT) Narrative Denilson Guy MD - 06/22/2023 11:59 PM CDT Denilson Guy MD ? 06/23/2023 ??2:45 PM Home Sleep Test Name: ??Silva Arana Location: ??[facility] Study notes: This is a single night home sleep apnea test. The study is performed in the context of a clinical suspicion for sleep apnea. Silva Arana ( 1995) is studied using a T3 Device using nasal pressure transducer, thoracoabdominal respiratory impedance plethysmography belts, pulse oximetry, snore microphone and actigraphy for body position. ??The study is scored by a RPSGT and interpreted by a Diplomate of the [place] Board [employer]. ??An [id number] review of the data has been performed by the interpreting physician. Scored following the most current version of the AASM Manual for the Scoring of Sleep and Associated Events. ?? Respiratory Event Index (JERRI) ??Oxygen Desaturation Index (LEIGH ANN) REI4% ??0.3 ??ODI4%: ??1 Supine JERRI: 0.2 ??ODI3%: ??7.5 Lateral JERRI: 0.3 ??Maximiliano Saturation 89 % ?? Time Below 88% 0 ??minutes ?? Weight: Wt Readings from Last 1 Encounters: 05/08/23 120.4 kg (265 lb 6.4 oz) Other data: Recording Duration: 479.9 minutes Time in Bed: ??464.3 minutes Estimated sleep efficiency [%]: 99 % Oximeter Quality: 100.0 % Flow Quality: 100.0 % RIP Quality: 100.0 % Supine time: 242 minutes Average SpO2: 94.8 % Pulse Average: 89.6 bpm Additional Comments: None IMPRESSION: Excessive Daytime Sleepiness (780.54, G47.10) - No Evidence of Obstructive Sleep Apnea RECOMMENDATIONS: - This is a negative home sleep study - A formal polysomnogram should be considered given a high false negative rate to home sleep testing. - However, if there is low clinical suspicion for obstructive sleep apnea, a negative home sleep test can be diagnostic. - Follow-up with a provider to discuss results is recommended. - Patients should be advised to avoid critical tasks, such as driving, whenever drowsy. - Patients should try to achieve at least 7-8 hours of sleep on a consistent basis. - The JERRI is a surrogate for AHI. ??For reimbursement and/or prior authorization purposes, it would be appropriate to list the JERRI as an AHI when the latter is accepted, but not the former. Denilson Mooneyomate, Board of Sleep Medicine Recording Information Recording Date: 06/22/2023 ??Analysis Start Time: 10:15 PM Recording Tags: ?? Analysis Stop Time: 6:00 AM Device Type: T3S ??Analysis Duration (TRT): 7h 44m ?? Est. Total Sleep Time: 7h 44m Position and Analysis Time Duration Percentage Supine (in TST): 242 m 52.1 % Non-Supine (in TST): 222.2 m 47.9 % Upright (in TRT): 0 m 0 % Movement (in TST): 6.8 m 1.5 % Invalid Data (Excluded): 0 m 0 % Respiratory Indices Index ?? Total ??Supine ??Non-supine Count Apneas + Hypopneas (AH): 0.3 /h 0.2 /h 0.3 /h 2 Apneas: 0 /h 0 /h 0 /h 0 Obstructive (OA): 0 /h 0 /h 0 /h 0 Mixed (MA): 0 /h 0 /h 0 /h 0 Central (CA): 0 /h 0 /h 0 /h 0 Hypopneas: ??0.3 /h 0.2 /h 0.3 /h 2 Respiration Rate (per m): 19.2 /m 19.3 /m 19 /m ?? Percentage of Sleep Duration Snore: 4.9 % 0.4 % 9.8 % 22.8 m Flow Limitation: 0 % 0 % 0 % 0 m Average Snore Volume 67.1 dB Percent of time greater than 80dB: Percent of 0.8 % Oxygen Saturation (SpO2) Total Supine ?Non-supine Oxygen Desaturation Index (LEIGH ANN): 7.5 /h ??7.4 /h 7.6 /h Average SpO2: 94.8 % ??95 % 94.7 % Minimum SpO2: 89 % ??91 % 89 % SpO2 Duration < 90% 0 % (0.1m) 0 % 0 % SpO2 Duration ? 88% 0 % (0m) 0 % 0 % Pulse in TST ?? Quality ?? Average: 89.6 bpm Oximeter: 100 % Maximum: 130 bpm Nasal Cannula: 100 % Minimum: 72 bpm Abdomen RIP: 100 % Duration < 40 bpm: 0 m Thorax RIP: 100 % Duration > 100 bpm: 20 m ? Tomasa Gallegos MD [facility] * (ABNORMAL) HPV HIGH RISK (02/11/2023 9:45 AM FOOD MIXER REPAIRER) [facility] TYPE 16 Negative Negative 02/13/2023 5:24 PM FOOD MIXER REPAIRER [facility] TYPE 18 Negative Negative 02/13/2023 5:24 PM FOOD MIXER REPAIRER [facility] OTHER HIGH RISK TYPES Positive(A) Negative 02/13/2023 5:24 PM FOOD MIXER REPAIRER [facility] Other (Cervical) Non-Blood / Unknown 02/11/2023 9:45 AM FOOD MIXER REPAIRER 02/11/2023 4:15 PM FOOD MIXER REPAIRER [facility] - 02/13/2023 5:24 PM FOOD MIXER REPAIRER Specimen is positive for the DNA of any one of, or combination of, the following high risk HPV types: 31, 33, 35, 39, 45, 51, 52, 56, 58, 59, 66, 68. HPV types 16 and 18 DNA were undetectable or below the pre-set threshold. ? Methodology: Venecia Deidra 4800 HPV Test Tomasa Gallegos MD MICROBIOLOGY [facility] [address] [place] [address], * ANTI HIV 1/2 (09/20/2021 1:29 PM CDT) HIV-1/HIV-2 ANTIBODY Non-Reacti ve Non-Reacti ve 09/21/2021 11:27 AM CDT [facility] Comment:HIV-1 p24 and HIV-1/ HIV-2 Ab not detected. Blood BLOOD SPECIMEN / Unknown Venipuncture / Unknown 09/20/2021 1:29 PM CDT 09/20/2021 1:39 PM CDT Mercy Yeung DO SEND OUTS [facility] [address] [place] [address], [place] from Last 3 Months or Most Recently Relevant to Health Maintenance Advance Directives * Full Code (Latest Code Status on File) Date Activated Date Inactivated Comments 10/01/2022 12:41 PM 10/01/2022 5:56 PM Question Answer Comments Code Status Discussion: Reviewed Preferences * Full Code Date Activated Date Inactivated Comments 04/13/2022 2:09 PM 04/14/2022 6:01 PM Question Answer Comments Code Status Discussion: Reviewed Preferences * Full Code Date Activated Date Inactivated Comments 04/13/2022 4:07 AM 04/13/2022 2:09 PM Question Answer Comments Code Status Discussion: Unable to Assess Preferences, Provider to review later * Full Code Date Activated Date Inactivated Comments 02/05/2022 9:51 PM 02/06/2022 3:27 PM Question Answer Comments Code Status Discussion: Other Care Teams Hub Bander Relationship Specialty Start Date End Date Tomasa Gallegos MD [address] [place] [address] PCP - General Family Practice 10/03/22
== END 2023-09-08 20:58 | disposition home or self-care (01) ==
LOC: SLEEP 20:57
PROVIDERS: PCP Family Medicine; Visit Provider Internal Medicine
DX: G47.33 Obstructive sleep apnea (adult) (pediatric) (principal); G47.10 Hypersomnia, unspecified
CPT/HCPCS: 95810

== ENCOUNTER 2024-08-07 14:07 | Outpatient (CLI) | payer BC, SELFPAY ==
[2024-08-07 14:23] VITALS: PULSE 85; O2SAT 98
--- OUTSIDE RECORDS SUMMARY | 2024-08-07 14:25 | XMS_ITS | Data Portability ---
Author Organization [place] - [facility] , [facility] [place] Address [address] [place] [address] Assessment No assessment recorded. Plan of Treatment Reminders Order Date Submit Date Provider Last Modified By Organization Details Last Modified Time Details Appointments None recorded. Lab None recorded. Referral None recorded. Procedures None recorded. Surgeries None recorded. Imaging None recorded. Medication Orders Diflucan 150 mg tablet 2024 [address] [facility] [id number] [facility] [employer], [facility] [address], [address], 09:11:04 Patient TargetsNo targets recorded. Patient Instructions Encounter Date Encounter Id Patient Instructions Last Modified By Organization Details Last Modified Time 04/06/2024 [id number] vaginal yeast infection: care instructions Not available 04/06/2024 09:11:02 Based on history and physical examination I suspect Yeast Infection. 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 If your symptoms do not improve within THREE TO FIVE (3-5) days, please follow up with your Primary Care Physician (PCP), or go to your local Urgent Care or Emergency Room for further evaluation. Not available 04/06/2024 09:11:58 Reason for Referral None Reported. Medical Equipment None Reported. Allergies No known drug allergies Medications Name Sig Start Date Stop Date Status Note LastModified by Organization Details LastModified Time Diflucan 150 mg tablet Take 1 tablet every day by oral route. 2024 active Not Available Not Available Not Avai lable Lovenox 120 mg/0.8 mL subcutaneous syringe active ADDED BY MALKA T: Not Available Not Available Not Available Lexapro 10 mg tablet active ADDED BY MALKA T: Not Available Not Available Not Available Vitals None Recorded Social History None recorded. Functional Status None recorded. Mental Status None recorded. Family History Nothing Reported. Medical History No medical history recorded. Gynecological HistoryNo gynecological history recorded. Obstetrics History GPAL:G 0 P 0 0 0 0 Past Encounters Encounter ID Performer Location Encounter Start Date Encounter Closed Date Diagnosis/Indication Diagnosis SNOMED-CT Code Diagnosis ICD10 Code Diagnosis Note [id number] Caitlin Ramirez, [facility] [address] [facility] [address] [place] [address] 04/06/2024 08:57:05 04/06/2024 15:07:46 Candidiasis of vagina 40994231 B37.31 Based on history and physical examinatio n I suspect Yeast Infection. I will recommend: -Diflucan, Probiotic- in person exam, if not resolved-c ontinued routine DOOR TO DOOR [employer]ESMAN follow up. I advised if the patient's symptoms worsen or do not improve to call us back or seek in person care. Alternativ e management options discussed. Medication side effects discussed. The patient agrees with management . Health Concerns Section Related Observation LastModified by Organization Detai ls LastModified Time None Recorded Concern Status LastModified by Organization Details LastModified Time None Recorded Advance Directives Directive None Recorded Payers Insurance Date Sequence Insurance Name Policy Number Policy Moore Covered Member ID Moore Member ID Guarantor Name 04/06/2024 [facility] [id number] Silva Arana [id number] Silva Arana 04/06/2024 2 *SELF PAY* [id number] Silva Arana [id number] Silva Arana 04/12/2024 1 [facility] [id number] Silva Arana [id number] Silva Arana 04/06/2024 1 *SELF PAY* Kami Arana 04/06/2024 1 *SELF PAY* Silva Arana [place] Silva Arana Notes Date Note Type Note Provider Name and Address Organization Details Recorded Time 04/06/2024 text/html Call connected, patient greeted. Patient name, , telephone number, and location verified verbally with the patient. Telemedicine limitations reviewed, answered all questions the patient had about the telehealth interaction, and verbal consent obtained to treat. Clinician attests they are physically located in the following state at the time of visit: [place]. Chief Complaint: yeast infection HPI: 28yo female with vaginal itching, irritation, discharge for >1w. No fever, no urinary symptoms, no new sex partners. No medication changes or recent antibiotics. She routinely follows up with a intermediate manager, Pap smears are UTD and normal. No concerns: , STDs. Caitlin Ramirez, DO [address] [facility] [address], [place], [address], [facility] 04/06/2024 09:12:08 OBGyn Episode No OBEpisode recorded.
--- OUTSIDE RECORDS SUMMARY | 2024-08-07 14:25 | XMS_ITS | Clinical Summary ---
Author Organization [facility] Address [facility] [place] [address] Care Team Providers [employer] Consultant Name Role Phone Radha Gallegos MD Primary Care Provider Allergies No known active allergies Medications albuterol HFA (PRO-AIR; VENTOLIN; PROVENTIL) 90 mcg/actuation inhalerIndicati ons:Exercise-in duced asthma (HC) Inhale 2 Puffs by mouth every 4 hours if needed for Shortness Of Breath or Wheezing. 1 Each 5 4 Active escitalopram oxalate (LEXAPRO) 10 mg tabletIndicatio ns:Anxiety TAKE 1 TABLET BY MOUTH EVERY DAY IN THE MORNING 90 Tablet 1 4 Active aspirin chewable 81 mg chewable tabletIndicatio ns:Supervision of high risk in first trimester (HC) Chew 2 Tablets (162 mg) by mouth once daily. 5 Active enoxaparin 120 mg/0.8 mL injectionIndica tions:Heterozyg ous factor V Leiden mutation (HC),Factor V Leiden mutation affecting (HC),History of pulmonary embolus (PE) Inject 120 mg subcutaneous every 12 hours. 60 Each 3 5 Active Active Problems Problem Noted Date Diagnosed Date Maternal morbid obesity in second trimester, ant epartum 07/25/2024 05/24/2024 Overview (05/24/2024): Estimated Date of Delivery: 12/11/24 Patient's last menstrual period was 02/16/2024. GBS: 28wk labs: Last Tdap: 2021 Last Flu vaccine: 2012 OB Labs: Needs HCV, HIV, GC/Chlam Type and screen with [facility] Med: 04/08/24: Apos, antibody screen negative TREPONEMA PALLIDUM Date Value Ref Range Status 05/10/2024 Non-Reactive Non-Reactive Final RUBELLA AB (IGG), IMMUNE STATUS Date Value Ref Range Status 05/10/2024 1.90 Index Final Comment: Index Interpretation ----- <0.90 Not consistent with immunity 0.90-0.99 Equivocal > or = 1.00 Consistent with immunity HEPATITIS B SURFACE ANTIGEN Date Value Ref Range Status 05/10/2024 NON-REACTIVE NON-REACTIVE Final HEMOGLOBIN Date Value Ref Range Status 05/10/2024 13.1 11.7 - 15.5 g/dL Final PLATELET COUNT Date Value Ref Range Status 05/10/2024 334 140 - 400 Thousand/uL Final No Known Allergies OB History Para Term AB Living 2 1 1 0 0 1 SAB IAB Ectopic Multiple Live Births 0 0 0 0 1 # Outcome Date GA Lbr Artie/2nd Weight Sex Type Anes PTL Lv 2 Current 1 Term 03/14/22 37w1d [place]ENT[place] Name: Graham Past Medical History: . Date Anxiety disorder Bilateral pulmonary embolism (HC) 04/12/2022 BMI 39.0-39.9,adult COVID-19 Factor V Leiden carrier (HC) 2020 Gestational hypertension, third trimester (HC) 01/01/2022 Diagnosed at 25wks--initially thought preeclampsia as Ur prot/Cr ratio at hospital 0.3. However 24 hour urine protein and repeat Urine protein Creatinine ratio were below preeclampsia threshold so diagnosis is gestational hypertension. Will get weekly labs, weekly BP checks, weekly BPP. Discussed daily home blood pressure and kick counts. Will need growth US [id number] just had growth US on infection MPP Supervision of high-risk 01/02/2022 [facility] CONSULTATION ON 01/08/22 REASON FOR CONSULT: Gestational hypertension TODAY'S APPOINTMENT: MD Consultation PRIMARY DIAGNOSIS: 26 y.o. Estimated Date of Delivery: 04/03/22 gHTN diagnosed at 25w-getting weekly labs and weekly BP checks Factor V, heterozygous COVID-19 @17w BMI 39 Anxiety HSV LAST GROWTH: 12/18/21 26w0d EFW 906 grams, percentile: 92 11/14/21 Past Surgical History: . Laterality Date Loop excisional electrocautery procedure, IUD removal 10/01/2022 Dr Post SECTION 03/14/2022 emergency under general anesthesia COLPOSCOPY 01/04/2021 YULIANA I, ECC Benign COLPOSCOPY 09/18/2023 benign; ECC suggestive of YULIANA I COLPOSCOPY 05/2022 YULIANA 2-3 LEEP PROCEDURE 08/2022 YULIANA 2-3 TONSIL AND ADENOIDECTOMY 09/22/2000 TYMPANOSTOMY 06/20/1996 WISDOM TEETH EXTRACTION Problems (from 05/10/24 to present) No problems associated with this episode. Yessica Rocha RN ....05/24/2024 12:29 PM [facility] Supervision of high-risk 5 Overview (07/21/2024): Silva Toshia Arana : 1995 REFERRING PROVIDER/CLINIC [facility]ATION[facility] provider approves scheduling of recommended ultrasounds/testing: No MPP ULTRASOUND/TESTING PATIENT MPP CONSULT ON 05/30/24 [facility] PRECONCEPTION CONSULT 11/07/22 Support person name: Lauri ULTRASOUND TYPE: 6/9 L2 REASON FOR VISIT: BMI 39, Factor V, PP bilateral PE after last delivery NEXT VISIT ALERTS: Final MARY by LMP Date: Patient's last menstrual period was 02/16/2024. MARY: Early US: Date: 04/26/2024 GA: 7w 2d MARY: 12/11/24 PrePregnancy Weight: 271 lbs Height: 5ft 9in BMI: 39.32 PLANS & FUTURE APPOINTMENTS: ULTRASOUND/GROWTH PLAN: - Through: - Growth: Next TESTING PLAN: - Testing: Through DELIVERY PLAN: - Scheduled delivery: - Preferred delivery location: PRIMARY DIAGNOSIS: 28 y.o. Estimated Date of Delivery: 12/11/24 MATERNAL Heterozygous Factor V 2022 Term C/S, PreE, Taking Lovenox PP and developed bilateral pulmonary emboli with moderate to large clot burden ~4w PP Hx LEEP 2022 BMI 39 2020 Hx Superficial thrombus in great saphenous vein- not technically DVT but treated with anticoagulation x 45 days Thrombophilia work up 10/2020 Anxiety HSV CRM- 2/ new patient eval, had a +b-HCG, records scanned in PREVIOUS ULTRASOUNDS: 07/25/24 20w1d ECHO: SPECIALISTS/CONSULTS: Coy Tena [place] 2022? [place] 06/13/24 Include: Specialty MD Clinic Name Phone# [place] and ADDED TO PATIENT CARE TEAM GENETICS: Carrier screening: scanned CARE COORDINATION: PERTINENT LABS: Labs reviewed? Yes Normal? Yes Blood type: A Rh Positive Antibody screen: Negative Non-[facility] labs need to be entered in EPIC? 05/10/24 Baseline PreE labs WNL x PCR 0.1 PERTINENT MEDS: Lovenox bASA Lexapro PROCEDURES: IF FGR <10% or EFW <2000 grams: Add FGRPCOM PLAN OF CARE: Original and updated POC 05/30 per Recommendations: ASA: 162 mg (81 mg x 2) once daily at bedtime after dinner for preeclampsia prophylaxis due to maternal risk factors. Lovenox: Continue the current dose and adjust between 0.4 - 0.6 Factor Xa level throughout with every trimester checks for Lovenox level. Discontinue Lovenox 24 hours before the planned elective repeat and restart at the previous third trimester dose, continuing for 6 weeks . HSV Prophylaxis: Start daily prophylaxis from 36 weeks until the planned section. Lexapro: Adjust the dose in the third trimester or based on symptoms to avoid complications. Calcium Supplementation: Start 1000 mg of extra calcium daily in addition to vitamins to reduce maternal and issues. Ultrasound and Monitoring: Targeted Level II ultrasound as planned with [facility] on 07/25/24. growth scans every 6 weeks until delivery. Third trimester testing from 32 weeks weekly with Biophysical Profile (BPP) and Non-Stress Test (NST) until delivery. Planned Repeat : Schedule between 39-40 weeks per patient preference. Hematology Appointment: Scheduled for 06/13/24. Chromosomal Abnormality Screening: Patient declined screening. 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 Pre-eclampsia affecting puerperium 10/01/2022 Acute pulmonary embolism without acute cor pulmo nale 04/13/2022 Mild intermittent asthma without complication H/O emergency section 03/18/2022 History of gestational hypertension 03/18/2022 Anemia associated with acute blood loss 03/14/19 COVID-19 affecting in second trimester 01/08/2022 Gestational hypertension 12/23/2021 Factor V Leiden mutation affecting Overview (01/13/2022): [facility] recs: # Factor V Leiden Heterozygosity: Mutations in Factor V [...] 01/09/2021 Heterozygous factor V Leiden mutation 12/28/2020 Overview (10/01/2022): heterozygous YULIANA III (cervical intraepithelial neoplasia III) 06/16/2017 Overview (06/09/2024): 06/2017 LSIL 11/2018 ASCUS/HPV+ 11/2019 LSIL 12/2019 [place]: YULIANA I, ECC Benign 12/2020 LSIL/HPV+, HPV 16/18 negative 04/2022 HSIL/ HPV+, HPV 16/18 negative 05/2022 [place]: YULIANA 2-3 09/2022 LEEP: YULIANA 2-3 01/2023 LSIL-H / HPV+, HPV 16/18 negative 03/2023 [place]: benign; ECC suggestive of YULIANA I 09/2023 LSIL-H / HPV+, HPV 16/18 negative 09/2023 Devon:suggestive of YULIANA I; ECC benign 05/2024 [place]: Benign. Pap: NIL/HPV+, 16/18 negative Provider plan: recheck a pap at your visit Disorder of nutrition 04/03/2010 Estimated Date of Delivery Comme nts Yes 12/11/2024 Based on Ultraso und Resolved Problems Problem Noted Date Diagnosed Date Resolved Date [facility] Encounter for Preconception Consultation 3 05/25/2024 Overview (11/04/2022): [facility] PRECONCEPTION Virtual CONSULTATION ON 11/07/22 Previous [facility] CONSULTATION ON 01/08/22 with CB- gHTN [...] up 10/2020 Anxiety HSV REFERRING PHYSICIAN/PHONE/LAST UPDATE: Radha Gallegos [place] [phone] Primary MD approves scheduling of recommended ultrasounds/testing: [...] once daily. Romario PATTERSON PLAN OF CARE: Obesity affecting in second trimester 01/08/2022 06/08/2023 [facility] Supervision of high-risk 01/02/2022 11/04/2022 Overview (01/07/2022): [facility] CONSULTATION ON 01/08/22 REASON FOR CONSULT: [...] 9w3d REFERRING PHYSICIAN/PHONE/LAST UPDATE: [facility] [phone] Primary MD approves scheduling of recommended ultrasounds/testing: No SPECIALISTS/CONSULTS: Include: Specialty MD Clinic Name Phone# [place] and ADDED TO PATIENT CARE TEAM Yes CARE COORDINATION: GENETICS: PROCEDURES: PERTINENT LABS: Labs reviewed? Yes Normal? Yes 12/31/21 PreE labs WNL xPCR 0.1 PERTINENT MEDS: Lovenox 40mg QD Lexapro Preferred delivery location: PLAN OF CARE: Gestational hypertension, third trimester 01/01/2022 03/18/2022 Overview (01/13/2022): Diagnosed at 25wks--initially thought preeclampsia as Ur prot/Cr ratio at hospital 0.3. However 24 hour urine protein and repeat Urine protein Creatinine ratio were below preeclampsia threshold so diagnosis is gestational hypertension. Will get weekly labs, weekly BP checks, weekly BPP. Discussed daily home blood pressure and kick counts. Will need growth US [id number] just had growth US on 12/20/21 so will get repeat in 4 weeks scheduled and can do with BPP. MPP consult [facility] Recs below: Severity: 25% will have signs/symptoms [...] 2x normal 10. elevated LFTs (2x normal). Severe gestational hypertension (based on severe BP) should be treated the same way as preeclampsia with severe features - admission, antihypertensive treatment (both short and long acting) and delivery at 34 weeks'. We reviewed the data to support aspirin prophylaxis. Low dose aspirin decreases the risk of preeclampsia by ~20% and is recommended until delivery. There have not been other preventative strategies or supplements identified to decrease recurrence. There is an increased risk of cardiovascular disease in later life (including coronary artery disease, cardiomyopathy, hyperlipidemia, and type 2 diabetes). - Recommend continuation of low dose ASA [...] BP checks, lipid screening, and diabetes screening Preeclampsia, third trimester 12/23/2021 01/01/2022 Primigravida in first trimester 09/01/2021 03/18/2022 Overview (02/16/2022): Known Factor V, heterozygous with prior history [...] HBSAG Nonreactive Past Medical History: . Date LGSIL of cervix of undetermined significance 12/28/2020;11/2019;06/201712/28/2020 LSIL/HPV+, HPV 16/18 negative Plan: Pap/HPV due 12/2021 Past Surgical History: . Laterality Date COLPOSCOPY 01/04/2021 YULIANA I, ECC Benign TONSIL AND ADENOIDECTOMY 09/22/00 TYMPANOSTOMY 06/20/96 WISDOM TEETH EXTRACTION No data on file. Problems (from 09/26/21 to present) No problems associated with this episode. Gerda Fraser RN.....09/30/2021 1:30 PM History of abnormal cervical Pap smear 12/28/2020 02/20/2023 Encounters Date Type Department Care Team Description 08/03/2024 Travel 07/25/2024 9:02 AM CDT - 07/25/2024 11:59 PM CDT Hospital Encounter [facility] [address] [place] [address] Radha Gallegos MD Maternal morbid obesity in second trimester, antepartum (HC) (Primary Dx); Supervision of high risk in second trimester (HC); High risk , antepartum (HC) 07/25/2024 8:51 AM CDT - 07/25/2024 9:01 AM CDT Hospital Encounter [facility] [address] [place] [place] [address] Factor V Leiden mutation (HC) 07/25/2024 Travel 07/07/2024 Telephone [facility] [address] [place] [address] Blaise Monterroso, DO Error-please disregard (opened in error) 07/04/2024 3:05 PM CDT OB Encounter [facility] [address] [place] [address] Radha Gallegos MD Care (17w 1d/) 07/04/2024 10:00 AM CDT Office Visit [facility] [address] [place] [address] Blaise Monterroso DO Follow Up 07/04/2024 9:30 AM CDT - 07/04/2024 11:59 PM CDT Hospital Encounter [facility] [address] [place] [address] Blaise Monterroso DO Factor V Leiden mutation (HC) 07/04/2024 Travel 06/29/2024 Travel 06/15/2024 Orders Only [facility] [address] [place] [address] Blaise Monterroso DO <No scans attached> 06/13/2024 8:30 AM CDT Office Visit [facility] [address] [place] [address] Urmila Tena MD Follow Up (Acute pulmonary embolism without acute cor pulmonale) 06/13/2024 Telephone [facility] [address] [place] [address] Blaise Monterroso DO 06/13/2024 Travel 06/12/2024 Travel 06/10/2024 Travel 06/09/2024 Telephone [facility] [address] [facility] [place] [address] Radha Gallegos MD Pap Plan 06/09/2024 Telephone [facility] [address] [place] [address] [facility] Cancer Appointment 06/06/2024 3:05 PM CDT OB Encounter [facility] [address] [place] [address] Radha Gallegos MD Care (13w 1d) 06/06/2024 2:35 PM CDT Procedure Only [facility] [address] [place] [address] Radha Gallegos MD Procedure (Colposcopy) 06/06/2024 Travel 06/01/2024 Travel 05/30/2024 7:11 AM CDT - 05/30/2024 11:59 PM CDT Hospital Encounter [facility] [address] [facility] [address] [place] [address] Radha Gallegos MD Supervision of high risk in first trimester (HC) (Primary Dx); Supervision of high-risk , first trimester (HC); Factor V Leiden mutation affecting (HC); Acute pulmonary embolism without acute cor pulmonale, unspecified pulmonary embolism type (HC); History of gestational hypertension 05/29/2024 Refill [facility] [address] [place] [address] Radha Gallegos MD Refill Request (Enoxaparin) 05/24/2024 3:15 PM CDT Ancillary Procedure [facility] [address] [place] [address] 05/24/2024 2:25 PM CDT OB Encounter [facility] [address] [place] [address] Roseline Munoz MD Care (11 weeks); Abdominal Pain (lower left side pain) 05/24/2024 Travel 05/24/2024 Nurse Triage [facility] [address] [place] [address] Radha Gallegos MD Care; Abdominal Pain 05/10/2024 9:15 AM CDT OB Encounter [facility] [address] [place] [address] Radha Gallegos MD Care (Initial 9wk 2d/) 05/10/[address] [address] Janet Calabrese NP Appointment 05/10/2024 Travel from Last 3 Months Immunizations Immunization Administration Dates Next Due AMB Influenza, IIV3 (Age >=3 years)(Flu Clinic Only) 12/27/2009,01/20/2008 DTaP 08/10/2000,04/19/1997 DTaP-HIB (TriHIBIT) 06/07/1996,01/28/1996,1995 Hepatitis A (Adult) 09/17/2015 Hepatitis B (Peds) 06/07/1996,01/28/1996, 996 Human Papilloma Virus Vaccine 06/27/2011, 012,12/23/2010 Influenza Virus, Unspecified 11/29/2008 Influenza, IIV3 (Age 6-35 mos) 02/25/2012,2010 Influenza, IIV3 (Age >=3 years) 12/23/2010,12/27,01/20/2008 Influenza, IIV4 02/01/2014 MENINGOCOCCAL VACCINE 2 VIAL 2MO-55YO (MENVEO) 08/13/2012 MMR 08/10/2000,11/08/1996 Rabavert 03/05/2023,,02/23/2023,02/20 Td (Age >=7 Years) 07/16/2018 Tdap 01/21/2022,08/09/2007 Varicella Vaccine 08/09/2007,12/11/1998 Family History Medical History Relation Name Comments Good Health Father COPD Maternal Grandfather Diabetes Maternal Grandfather Good Health Maternal Grandmother Good Health Mother Good Health Paternal Grandfather Thyroid Disease Paternal Grandmother Grav e's Disease factor 5 Sister Good Health Son [place] Relation Name Status Comments Father [...] 0 08/27/2023 Social Connections Answer Date Recorded Do you often feel lonely or isolated from those around you? 0 05/10/2024 Financial Resource Strain Answer Date R ecorded Difficulty of Paying Living Expenses 3 05/10/2024 Difficulty of Paying Living Expenses Not on file 05/10/2024 Food Insecurity Answer Date Recorded Do you worry your food will run out before you are able to buy more? 1 05/10/2024 Transportation Needs Answer Date Record ed Does lack of transportation keep you from medica l appointments? 1 05/10/2024 Does lack of transportation keep you from work, meetings or getting things that you need? 1 05/10/2024 Housing Stability Answer Date Recorded What is your housing situation today? 1 05/10/2024 Interpersonal Safety Answer Date Record ed Are you being hit, kicked, p ushed or yelled at (see row info)? No 05/30/2024 Interpersonal Safety Abuse 12 - 18 Not on file 05/30/2024 Interpersonal Safety Ambulatory Vulnerability No t on file 05/30/2024 Utilities Answer Date Recorded Do you have trouble paying f or utilities (for example, heat, electricity, water, phone)? 1 05/10/2024 Education Answer Date Recorded What is the highest level of school you have completed or the highest degree you have received? 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 on file Not on f ile Not on file Obstetrics History Para Term AB IAB SAB Ectopic Multiple Livin g Live Births 2 1 1 0 0 0 0 0 0 1 1 Date Outcome GA Total Labor Labor/2nd/3rd Weight Sex Type Anes PTL [place] A1 A5 Name Clin 2022 Term 37w 1d C-Sec tion Living [place] Current Summary Episode Dates Number of Fetuses Estimated Date of Delivery 05/10/2024 - Present (08/07/2024) 12/11/2024 (set by Aniyah Gallegos MD on 05/10/2024 based on Ultrasound on 04/26/2024) Dating Summary Based On MARY GA Diff Last Menstrual Period on 02/16/2024 11/22/2024 +2w5d Ultrasound on 04/26/2024 12/11/2024 Working GA:7w2d Alternate MARY Entry 12/11/2024 Same Comment:Date entered prior t o episode creation Vitals Pregravid Weight Height TWG (As of 08/07/2024) Pregrav id BMI 1.77 m (5' 9.69) Date GA Fund Present FHR Mvmt BP Weight Edema Alb Glu Ket Dil/ Eff/Sta 5 12w1d Inpatient data not displayed here. See encounter summary. 5 17w1d Inpatient data not displayed here. See encounter summary. 5 20w1d Inpatient data not displayed here. See encounter summary. 5 20w1d Inpatient data not displayed here. See encounter summary. Notes Progress Notes - OB Encounte r - 07/04/2024 - GA:17w1d 07/04/2024 - 17 - Radha Gallegos MD SUBJECTIVE: Silva Arana is a 28 y.o. female at 17+1 weeks. No concerns. See visit comments. Reviewed consults from [facility] and hematology. OBJECTIVE: see OB vitals flow sheet ASSESSMENT : 17+1 weeks gestation Factor V heterozygous with history of pp pulmonary embolism while on ppx dose of lovenox. Per hematology recommendations, is now on 120 mg/daily dosing, but may need to increase to twice daily depending on heparin level this Thursday. Lab appointment scheduled. Hx preeclampsia, on 162 mg ASA daily PLAN: Warning signs and symptoms reviewed with patient including pain, cramping, bleeding or leaking fluid. RTC 4 weeks. Level 2 ultrasound scheduled for 20 weeks. Ob consult after that for repeat planning. Radha Gallegos MD .................... 07/04/2024 2:42 PM Progress Notes - OB Encounte r - 06/06/2024 - GA:13w1d 06/06/2024 - - Radha Gallegos MD SUBJECTIVE: Silva Arana is a 28 y.o. female at 13+1 weeks. We reviewed MPP recommendations for . She has started 162 mg ASA at dinner and 1000 mg/day of calcium with her PNV at bedtime. She has been having increased heartburn and nausea since instituting these changes. See visit comments. OBJECTIVE: see OB vitals flow sheet ASSESSMENT : 13+1 weeks gestation History of bilateral PE-- on lovenox. Needs factor Xa level Q trimester, she is seeing hematology next week and will talk about getting that drawn at that visit. Is on 162 mg ASA for preeclampsia prevention and 1000 mg/day of calcium Elevated blood pressure readings today. Recommend checking home readings 2-3 times/week. She has a cuff at home. PLAN: Warning signs and symptoms reviewed with patient including pain, cramping, bleeding or leaking fluid. Discussed level 2 ultrasound at 20 weeks and then growth US Q6 weeks after that. Can try pepcid twice daily to see if treating heartburn helps with the nausea. RTC 4 weeks. Radha Gallegos MD .................... 06/06/2024 2:50 PM Progress Notes - Hospital En counter - 05/30/2024 - GA:12w1d 05/30/2024 - 12w1d - Dayron Leon [employer] TELEHEALTH (required for all telehealth visits): As the provider for this telehealth service, I attest that I introduced myself to the patient, provided my credentials, disclosed my location, and determined that, based on a review of the patients chart and/or a discussion with members of the patient's treatment team, telemedicine via a real-time, two-way, interactive audio and video platform is an appropriate and effective means of providing this service. The patient and I mutually agree that this visit is appropriate for telemedicine as well. Originating site (patient location): Home Distant site (telehealth provider location): [facility] Video start time (include am/pm designation): 8:58 AM Video end time (include am/pm designation): 9:08 AM MFM CONSULT NOTE / 05/30/[address] Munoz, Below outlines my telehealth visit with Silva Arana on 05/30/2024 Please feel free to contact myself or one of my partners with any questions at [phone]. Patient's last menstrual period was 02/16/2024. Estimated Date of Delivery: 12/11/24 Gestational Age: 12w1d History of Present Illness: Silva Arana is a 28 y.o. female, at 12w1d gestation who is being seen at [facility] due to past medical history complicating current . [facility] CONSULT ON 05/30/24 [facility] PRECONCEPTION CONSULT 11/07/22 Support person name: Lauri ULTRASOUND TYPE: L2 scheduled 07/25 REASON FOR VISIT: consult on risks and management- hx of factor V, PE and DVT, BMI 39 Final MARY by LMP Date: Patient's last menstrual period was 02/16/2024. MARY: Early US: Date: 04/26/2024 GA: 7w 2d MARY: 12/11/24 PrePregnancy Weight: 271 lbs Height: 5ft 9in BMI: 39.32 PRIMARY DIAGNOSIS: 28 y.o. Estimated Date of Delivery: 12/11/24 MATERNAL Heterozygous Factor V, rest of the thrombophilia workup was negative. 2022 Term C/S, PreE, Taking Lovenox PP and developed bilateral pulmonary emboli with moderate to large clot burden ~4w PP, Planning repeat C/S for the current Hx LEEP 2022 BMI 39.32 2020 Hx Superficial thrombus in great saphenous vein- not technically DVT but treated with anticoagulation x 45 days Thrombophilia work up 10/2020 Anxiety, stable on Lexapro HSV- 2 months ago CRM- 2/21 new patient eval, had a +b-HCG, records scanned in PREVIOUS ULTRASOUNDS: 07/25/24 20w1d SPECIALISTS/CONSULTS: Coy Tena LV 2022? [place] 06/13/24 GENETICS: Carrier screening: scanned PERTINENT LABS: Labs reviewed? Yes Normal? Yes Blood type: A Rh Positive Antibody screen: Negative Non-[facility] labs need to be entered in EPIC? 05/10/24 Baseline PreE labs WNL x PCR 0.1 PERTINENT MEDS: Lovenox 120 mg daily Lexapro Today she feels well. She denies new complaints. She has fair movements. She denies contractions, cramping, pelvic pressure, backache. She denies vaginal bleeding & denies vaginal discharge. The patient denies headache, visual changes, and epigastric pain. Voiding without difficulty. She has a fair appetite and denies constipation. Hypertension prior to or between : No Anti-hypertensive medications during present : No Prior history of thrombophilia or Lupus Anticoagulant: Yes Aspirin, Steroid, Heparin use with present : Yes OB History Para Term AB Living 2 1 1 0 0 1 SAB IAB Ectopic Multiple Live Births 0 0 0 0 1 # Outcome Date GA Lbr Artie/2nd Weight Sex Type Anes PTL Lv 2 Current 1 Term 03/14/22 37w1d [place] PAST MEDICAL HISTORY: Past Medical History: . Date Anxiety disorder Bilateral pulmonary embolism (HC) 04/12/2022 BMI 39.0-39.9,adult COVID-19 Factor V Leiden carrier (HC) 2020 Gestational hypertension, third trimester (HC) 01/01/2022 Diagnosed at 25wks--initially thought preeclampsia as Ur prot/Cr ratio at hospital 0.3. However 24 hour urine protein and repeat Urine protein Creatinine ratio were below preeclampsia threshold so diagnosis is gestational hypertension. Will get weekly labs, weekly BP checks, weekly BPP. Discussed daily home blood pressure and kick counts. Will need growth US [id number] just had growth US on HSV infection [facility] Encounter for Preconception Consultation 11/04/2022 [facility] PRECONCEPTION Virtual CONSULTATION ON 11/07/22 Previous [facility] CONSULTATION ON 01/08/22 with CB- gHTN REASON FOR CONSULT: prepreg consult for next mgmt TODAY'S APPOINTMENT: MD Consultation PRIMARY DIAGNOSIS: 27 y.o. Factor V, heterozygous 02/2022 Term C/S with Pre-E - gHTN - [facility] Supervision of high-risk 01/02/2022 [facility] CONSULTATION ON 01/08/22 REASON FOR CONSULT: Gestational hypertension TODAY'S APPOINTMENT: MD Consultation PRIMARY DIAGNOSIS: 26 y.o. Estimated Date of Delivery: 04/03/22 gHTN diagnosed at 25w-getting weekly labs and weekly BP checks Factor V, heterozygous COVID-19 @17w BMI 39 Anxiety HSV LAST GROWTH: 12/18/21 26w0d EFW 906 grams, percentile: 92 11/14/21 Past Surgical History: . Laterality Date Loop excisional electrocautery procedure, IUD removal 10/01/2022 Dr Post SECTION 03/14/2022 emergency under general anesthesia COLPOSCOPY 01/04/2021 YULIANA I, ECC Benign COLPOSCOPY 09/18/2023 benign; ECC suggestive of YULIANA I COLPOSCOPY 05/2022 YULIANA 2-3 LEEP PROCEDURE 08/2022 YULIANA 2-3 TONSIL AND ADENOIDECTOMY 09/22/2000 TYMPANOSTOMY 06/20/1996 WISDOM TEETH EXTRACTION Current Outpatient Medications on File Prior to Encounter Medication Sig Dispense Refill albuterol HFA (PRO-AIR; VENTOLIN; PROVENTIL) 90 mcg/actuation inhaler Inhale 2 Puffs by mouth every 4 hours if needed for Shortness Of Breath or Wheezing. 1 Each 5 enoxaparin (Lovenox) 120 mg/0.8 mL injection Inject 120 mg subcutaneous once daily. 90 Each 3 escitalopram oxalate (LEXAPRO) 10 mg tablet TAKE 1 TABLET BY MOUTH EVERY DAY IN THE MORNING 90 Tablet 1 No current facility-administered medications on file prior to encounter. ALLERGIES/SENSITIVITIES: No Known Allergies Past Social History: Social History Tobacco Use Smoking status: Never Passive exposure: Never Smokeless tobacco: Never Substance Use Topics Alcohol use: Yes Comment: Rarely Family History Problem Relation Age of Onset Good Health Mother Good Health Father Other (factor 5) Sister Good Health Maternal Grandmother Diabetes Maternal Grandfather COPD Maternal Grandfather Thyroid Disease Paternal Grandmother Grave's Disease Good Health Paternal Grandfather Good Health Son REVIEW OF SYSTEMS: A comprehensive review of systems was negative except for items noted in HPI/Subjective. Recent Labs 09/20/21 1329 ABORH A Rh Positive ANTIBODY SCREEN Date Value Ref Range Status 09/20/2021 Negative Negative Final TREPONEMA PALLIDUM Date Value Ref Range Status 05/10/2024 Non-Reactive Non-Reactive Final 12/23/2021 Negative Negative Final HBSAG Date Value Ref Range Status 09/20/2021 Nonreactive Nonreactive Final HEPATITIS B SURFACE ANTIGEN Date Value Ref Range Status 05/10/2024 NON-REACTIVE NON-REACTIVE Final Comment: For additional information, please refer to http://education.[employer]faq/OAF199 (This link is being provided for informational/ educational purposes only.) PHYSICAL EXAM: The patient is a healthy looking, Well Nourished, White/ female appearing her stated age. LMP 02/16/2024 Psychiatric: Alert and oriented x 3 Ultrasound: planned with [facility] on 07/25/24 Impression: 28 y.o. at 12w1d gestation with past medical history complicating current Recommendations: ASA: 162 mg (81 mg x 2) once daily at bedtime after dinner for preeclampsia prophylaxis due to maternal risk factors. Lovenox: Continue the current dose and adjust between 0.4 - 0.6 Factor Xa level throughout with every trimester checks for Lovenox level. Discontinue Lovenox 24 hours before the planned elective repeat and restart at the previous third trimester dose, continuing for 6 weeks . HSV Prophylaxis: Start daily prophylaxis from 36 weeks until the planned section. Lexapro: Adjust the dose in the third trimester or based on symptoms to avoid complications. Calcium Supplementation: Start 1000 mg of extra calcium daily in addition to vitamins to reduce maternal and issues. Ultrasound and Monitoring: Targeted Level II ultrasound as planned with [facility] on 07/25/24. growth scans every 6 weeks until delivery. Third trimester testing from 32 weeks weekly with Biophysical Profile (BPP) and Non-Stress Test (NST) until delivery. Planned Repeat : Schedule between 39-40 weeks per patient preference. Hematology Appointment: Scheduled for 06/13/24. Chromosomal Abnormality Screening: Patient declined screening. The results of the consult were communicated by this note to Dr Munoz. 05/30/2024 - 12w1d - Elidia Kevin RN [place] [facility] Consultation ~ Virtual visit, Identity Confirmed Silva having a consultation today due to h/o of multiple episodes of clots . She is currently @ 12w1d. Assessment Histories reviewed today include: Past Medical History, Past Surgical History, Social History and Family History and Obstetric History. Refer to the corresponding sections of the [facility] and the [facility] Navigator for details. Scheduled to speak with Dr Dayron Leon today. After Visit Summary created, discussed and visible to patient via MyChart after visit. Face to Face RN time: 20 min ELIDIA HODGE RN 05/30/2024 9:01 AM Progress Notes - OB Encounte r - 05/24/2024 - GA:11w2d 05/24/2024 - 11w2d - Ashia Munoz MD Patient is here for left lower quadrant pain at 11w2d Concerns: left lower quadrant pain Had similar pain 2-3 weeks ago that was intermittent. Thursday/Thursday restarted. It has been constant since. Yesterday was the worst pain. Today is a little better. Pain is constant. Left lower quadrant. 4/10 pain. Has been working despite it. Once in a while will migrate to mid abdomen and feel like a period cramp. No bleeding Normal discharge. Stopped progesterone end of April (was on for fertility) No urinary symptoms. Bm don't change the pain. Does feel a little more constipated. No blood in stool. Is on lovenox. No concerns for blood clots. BP 125/80 (Cuff Site: Left Arm, Position: Sitting, Cuff Size: Adult Large) Pulse 91 Wt 124.6 kg (274 lb 9.6 oz) LMP 02/16/2024 SpO2 100% BMI 39.76 kg/m General: Resting comfortably, NAD : thick white discharge vaginally. Cervix appears closed, no bleeding Left adnexal tenderness. US OB 1ST TRI SINGLE TA Result Date: 05/24/2024 For Patients: As a result of the Century Cures Act, medical imaging exams and procedure reports are released immediately into your electronic medical record. You may view this report before your referring provider. If you have questions, please contact your health care provider. INDICATION: Left lower quadrant pain COMPARISON: 05/05/2024 TECHNIQUE: Real-time navarro-scale imaging of the pelvis was performed. FINDINGS: Sonographic imaging demonstrates a single living intrauterine gestation. The embryo demonstrates a regular cardiac rate measuring 165 beats per minute. The embryo`s crown-rump length measurement of 4.6 cm corresponds to a gestational age of 11 weeks 3 days with a sonographic due date of 12/10/2024. There is a normal-appearing yolk sac. There are no gross abnormalities noted within the embryo at this early state of development. The gestational sac has a normal appearance. There is no evidence of a perigestational hemorrhage. The amount of fluid within the sac appears appropriate for gestational age. The cervix is closed. The myometrium appears normal. The ovaries are of normal size. There are no suspicious fluid collections noted in the cul-de-sac. Normal first trimester OB ultrasound exam. Gestational age calculated at 11 weeks 3 days with a sonographic due date of 12/10/2024. Dictated by Silvano Lr MD @ 05/24/2024 3:22:46 PM (Electronically Signed) OB 1ST TRI SINGLE TA Result Date: 05/05/2024 For Patients: As a result of the Cures Act, medical imaging exams and procedure reports are released immediately into your electronic medical record. You may view this report before your referring provider. If you have questions, please contact your health care provider. INDICATION: First trimester scan, establish dates. COMPARISON: None. TECHNIQUE: Real-time navarro-scale imaging of the pelvis was performed. FINDINGS: Sonographic imaging demonstrates a single living intrauterine gestation. The embryo demonstrates a regular cardiac rate measuring 169 beats per minute. The embryo`s crown-rump length measurement of 1.8 cm corresponds to a gestational age of 8 weeks 3 days with a sonographic due date of 12/12/2024. There is a normal-appearing yolk sac. There are no gross abnormalities noted within the embryo at this early state of development. The gestational sac has a normal appearance. There is no evidence of a perigestational hemorrhage. The amount of fluid within the sac appears appropriate for gestational age. The cervix is closed. The myometrium appears normal. Normal left ovary. Right ovary not visualized. There are no suspicious fluid collections noted in the cul-de-sac. Normal first trimester OB ultrasound exam. Gestational age calculated at 8 weeks 3 days with a sonographic due date of 12/12/2024. Dictated by Silvano Lr MD @ 05/05/2024 3:27:54 PM (Electronically Signed) Results for orders placed or performed in visit on 05/24/24 POCT Urinalysis Dipstick Only [[id number]] Collection Time: 05/24/24 2:52 PM Result Value Ref Range PH 6.0 5.0 - 8.0 SPECIFIC GRAVITY 1.015 1.001 - 1.035 GLUCOSE NEGATIVE NEGATIVE BILIRUBIN NEGATIVE NEGATIVE KETONES NEGATIVE NEGATIVE OCCULT BLOOD TRACE (A) NEGATIVE PROTEIN NEGATIVE NEGATIVE NITRITE NEGATIVE NEGATIVE LEUKOCYTE ESTERASE NEGATIVE NEGATIVE Silva was seen today for care and abdominal pain. Diagnoses and all orders for this visit: Supervision of high-risk , first trimester (HC) - US OB 1ST TRI SINGLE TA; Future - TRICHOMONAS, CARLO, AND BACTERIAL VAGINOSIS BY ISSAC; Future - TRICHOMONAS, CARLO, AND BACTERIAL VAGINOSIS BY ISSAC Abdominal pain, LLQ (left lower quadrant) - US OB 1ST TRI SINGLE TA; Future - POCT Urinalysis Dipstick Only [[id number]]; Future - URINE CULTURE [20529.2]; Future - URINALYSIS MICROSCOPIC [18327.1] - routine; Future - TRICHOMONAS, CARLO, AND BACTERIAL VAGINOSIS BY ISSAC; Future - POCT Urinalysis Dipstick Only [[id number]] - URINE CULTURE [13093.2] - URINALYSIS MICROSCOPIC [25489.1] - routine - TRICHOMONAS, CARLO, AND BACTERIAL VAGINOSIS BY ISSAC Patient is having persistent left lower quadrant pain. Fortunately, ultrasound and UA are reassuring. Could be constipation, I have asked her to start miralax. Urine culture and TGC swab pending. Continue to monitor. RTC as scheduled for routine care Roseline Munoz MD .................... 05/24/2024 2:36 PM CC: [facility] Progress Notes - OB Encounte r - 05/10/2024 - GA:9w2d 05/10/2024 - 9w2d - Radha Gallegos MD FIRST OB VISIT HPI: Silva Arana is a 28 y.o. female at 9w2d with bustos intrauterine here today for a initial OB exam. Estimated due date is Estimated Date of Delivery: 12/11/24 based on ultrasound dating at 7 weeks. Prior complicated by gestational HTN as well as code while delivery via . She had pulmonary embolisms despite being on anticoagulation, so she has been on lovenox since removing her IUD in anticipation of . Nausea/Vomiting: no Breast tenderness: yes Fatigue: yes Bleeding: no Taking vitamins: yes Options of sequential screen, cell-free DNA testing, amniocentesis were discussed. Patient is not interested in pursuing testing. AMA: no Previous : yes OB History Para Term AB Living 2 1 1 0 0 1 SAB IAB Ectopic Multiple Live Births 0 0 0 0 1 # Outcome Date GA Lbr Artie/2nd Weight Sex Type Anes PTL Lv 2 Current 1 Term 03/14/22 37w1d [place] Past Medical History: . Date Anxiety disorder Bilateral pulmonary embolism (HC) 04/12/2022 BMI 39.0-39.9,adult COVID-19 Factor V Leiden carrier (HC) 2020 Gestational hypertension, third trimester (HC) 01/01/2022 Diagnosed at 25wks--initially thought preeclampsia as Ur prot/Cr ratio at hospital 0.3. However 24 hour urine protein and repeat Urine protein Creatinine ratio were below preeclampsia threshold so diagnosis is gestational hypertension. Will get weekly labs, weekly BP checks, weekly BPP. Discussed daily home blood pressure and kick counts. Will need growth US [id number]--[id number] just had growth US on infection MPP Supervision of high-risk 01/02/2022 [facility] CONSULTATION ON 01/08/22 REASON FOR CONSULT: Gestational hypertension TODAY'S APPOINTMENT: MD Consultation PRIMARY DIAGNOSIS: 26 y.o. Estimated Date of Delivery: 04/03/22 gHTN diagnosed at 25w-getting weekly labs and weekly BP checks Factor V, heterozygous COVID-19 @17w BMI 39 Anxiety HSV LAST GROWTH: 12/18/21 26w0d EFW 906 grams, percentile: 92 11/14/21 Past Surgical History: . Laterality Date Loop excisional electrocautery procedure, IUD removal 10/01/2022 Dr Post SECTION 03/14/2022 emergency under general anesthesia COLPOSCOPY 01/04/2021 YULIANA I, ECC Benign COLPOSCOPY 09/18/2023 benign; ECC suggestive of YULIANA I COLPOSCOPY 05/2022 YULIANA 2-3 LEEP PROCEDURE 08/2022 YULIANA 2-3 TONSIL AND ADENOIDECTOMY 09/22/2000 TYMPANOSTOMY 06/20/1996 WISDOM TEETH EXTRACTION Family History Problem Relation Age of Onset Other Mother pre-diabetes Good Health Father No Known Problems Sister Good Health Maternal Grandmother Diabetes Maternal Grandfather Thyroid Disease Paternal Grandmother Grave's Disease Good Health Paternal Grandfather No Known Problems Son Social History Tobacco Use Smoking status: Never Passive exposure: Never Smokeless tobacco: Never Substance Use Topics Alcohol use: Yes Comment: Rarely Current Outpatient Medications Medication Sig albuterol HFA (PRO-AIR; VENTOLIN; PROVENTIL) 90 mcg/actuation inhaler Inhale 2 Puffs by mouth every 4 hours if needed for Shortness Of Breath or Wheezing. enoxaparin (Lovenox) 120 mg/0.8 mL injection Inject 120 mg subcutaneous once daily. escitalopram oxalate (LEXAPRO) 10 mg tablet TAKE 1 TABLET BY MOUTH EVERY DAY IN THE MORNING No current facility-administered medications for this visit. Medications have been reviewed by me and are current to the best of my knowledge and ability. ALLERGIES Patient has no known allergies. MENTAL HEALTH HISTORY History of psychiatric diagnosis: Anxiety Current mental health provider: Yes: Rosy Currently taking any psychiatric medications? Yes INFECTION HISTORY Current Drug Use: none Relevant infection history from OB Questionnaire: none REVIEW OF SYSTEMS Comprehensive ROS complete and negative other than noted in HPI and on OB Questionnaire. PHYSICAL EXAM BP 115/76 (Cuff Site: Left Arm, Position: Sitting, Cuff Size: Adult Large) Pulse 96 Ht 1.77 m (5' 9.69) Wt 123.2 kg (271 lb 9.6 oz) LMP 02/16/2024 SpO2 98% BMI 39.32 kg/m General Appearance: Alert, appropriate appearance for age. No acute distress. HEENT Exam: Grossly normal. Neck/Thyroid Exam: Supple, no masses, nodes or enlargement. Lungs: Clear to auscultation bilaterally. Breast Exam: Not indicated. Cardiovascular Exam: Regular rate and rhythm. S1, S2, no murmur. Abd: Soft, non-tender, no masses or organomegaly. Skin: no rashes or lesions. Lymphatics: no nodes palpable. Psychiatric Exam: Alert and oriented x 3, appropriate affect. Pelvic Exam: not indicated ASSESSMENT/PLAN 28 y.o. at 9w2d with bustos intrauterine . ICD-10-CM 1. Supervision of high-risk , first trimester (HC) O09.91 AMB CONSULT TO MATERNAL- MEDICINE HBSAG (HBS) TREPONEMA PALLIDUM RUBELLA IMMUNE STATUS UA W/ SEDIMENT EXAM REFLEXED PER CRITERIA URINE CULTURE HEPATIC FUNCTION PANEL CREATININE PROTEIN/CREAT RATIO,URINE CBC AND DIFFERENTIAL PROGESTERONE 2. Exercise-induced asthma (HC) J45.990 3. Factor V Leiden mutation affecting (HC) O99.119 AMB CONSULT TO MATERNAL- MEDICINE D68.51 4. Acute pulmonary embolism without acute cor pulmonale, unspecified pulmonary embolism type (HC) I26.99 AMB CONSULT TO MATERNAL- MEDICINE 5. History of gestational hypertension Z87.59 AMB CONSULT TO MATERNAL- MEDICINE HEPATIC FUNCTION PANEL CREATININE PROTEIN/CREAT RATIO,URINE CBC AND DIFFERENTIAL Satisfactory exam. Demonstrates appropriate and health-seeking behaviors toward her . Verbalizes good understanding of care schedule and the importance of coming to each visit as scheduled. Start/continue vitamins. Reviewed labs. She was encouraged to call the office with any questions or concerns. Body mass index is 39.32 kg/m . Diet and expected weight gain discussed with patient. Given prior history of blood clot, and gestational HTN, recommend consult with MPP as well as follow up with hematology. Will continue lovenox throughout . Some of her initial labs were completed with reproductive endocrine, remaining labs and baseline pre-e labs done today. Patient started on progesterone through reproductive endocrine, will continue through the end of this month. Radha Gallegos MD Last Filed Vital Signs Vital Sign Reading Time Taken Comments Blood Pressure 119/81 07/04/2024 2:42 PM CDT Pulse 84 07/04/2024 2:42 PM CDT Temperature 36.7 C (98 F) 07/04/2024 10:01 AM CDT Respiratory Rate 18 06/13/2024 8:25 AM CDT Oxygen Saturation 100% 07/04/2024 2:42 PM CDT Inhaled Oxygen Concentration - - Weight 126.3 kg (278 lb 6.4 oz) 07/04/2024 2:42 PM CDT Height 177 cm (5' 9.69) 05/10/2024 9:17 AM CDT Body Mass Index 40.31 05/10/2024 9:17 AM CDT Plan of Treatment Upcoming Encounters Date Type Department Care Team (Late st Contact Info) Description 08/08/2024 3:05 PM CDT OB Encounter [facility] [address] [facility] [address] Radha Gallegos MD [address] [facility] [place] [address] 08/29/2024 1:15 PM CDT Appointment [facility] [address] [facility] [address] [place] [address] 09/07/2024 3:40 PM CDT OB Encounter [facility] [address] [facility] [address] Radha Gallegos MD [address] [place] [address] 09/16/2024 8:50 AM CDT OB Encounter [facility] [address] [facility] [address] Radha Gallegos MD [address] [place] [address] 10/03/2024 3:30 PM CDT OB Encounter [facility] [address] [facility] [place] [address] Radha Gallegos MD [address] [facility] [place] [address] 10/19/2024 4:05 PM CDT OB Encounter [facility] [address] [place] [address] Radha Gallegos MD [address] [facility] [place] [address] 10/24/2024 3:05 PM CDT OB Encounter [facility] [address] [place] [place] [address] Radha Gallegos MD [address] [place] [place] [address] 10/31/2024 3:05 PM CDT OB Encounter [facility] [address] [place] [address] Radha Gallegos MD [address] [place] [address] 11/07/2024 3:05 PM CDT OB Encounter [facility] [address] [facility] [address] Radha Gallegos MD [address] [place] [place] [address] 11/14/2024 3:05 PM CDT OB Encounter [facility] [address] [place] [place] [address] Radha Gallegos MD [address] [place] [place] [address] 11/21/2024 3:05 PM CDT OB Encounter [facility] [address] [place] [address] Radha Gallegos MD [address] [place] [address] Health Maintenance Due Date Last Done Comments Hepatitis C screening for age 18-79 10/05/2013 COVID-19 vaccine series (2023- season) 2023 Depression screening for age 12+ 08/26/2024 08/27/2023, 03/29/2021, 12/28/2020, Additional history exists Influenza Vaccine (Season Ended) 2024 02/01/2014, 02/25/2012, 12/23/2010, Additional history exists RSV vaccine for adults or (1 - Risk 1-dose series) 10/17/2024 BMI (ht and wt on same day) for age 18+ 05/10/2025 05/10/2024, 08/27/2023, 07/10/2023, Additional history exists Pap test for age 21-65 06/06/2025 , 06/06/2024, 09/18/2023, Additional history exists Tetanus booster 01/22/2032 01/21/2022, 0502/2018, 08/09/2007 Hepatitis B series for 19+ Completed 06/07, 01/28/1996, 1995 HIV for age 15-65 Completed 09/20/2021 Tdap Completed 01/21/2022, 08/09/2007 Pneumococcal series for age 6-49 Aged Out No longer eligible based on patient's age to complete this topic Medical Devices Explanted Type Area Tie Cutter Device Identifier Shelf Expiration Date Model / Serial / Lot Iud Explanted:Qty: 1 on 10/01/2022 at [facility] Iud Explanted:Qty: 1 on 10/01/2022 by Vida Post MD at [facility] N/A: Uterus Procedures Procedure Name Priority Date/Time Associated Diagnosis Comments US ECHOCARDIOGRAM Routine 07/25/2024 11:33 AM CDT High risk , antepartum (HC) US OB DETAIL ANATOMY SINGLE Routine 07/25/2024 11:33 AM CDT High risk , antepartum (HC) HEPARIN LEVEL Today 07/25/2024 8:55 AM CDT Factor V Leiden mutation (HC) CBC WITH AUTO DIFFERENTIAL Timed 07/04/2024 9:38 AM CDT Factor V Leiden mutation (HC) BASIC METABOLIC PANEL Today 07/04/2024 9:38 AM CDT Factor V Leiden mutation (HC) CBC WITH AUTO DIFFERENTIAL Today 07/04/2024 9:38 AM CDT Factor V Leiden mutation (HC) PATH TISSUE EXAM Routine 06/06/2024 3:09 PM CDT YULIANA III (cervical intraepithelial neoplasia III) DEVELOPMENT OFFICER THIN PREP PAP SCREEN IMAGED Routine 06/06/2024 3:05 PM CDT Cervical cancer screening HPV HIGH RISK Routine 06/06/2024 3:05 PM CDT Cervical cancer screening US OB 1ST TRI SINGLE TA STAT 05/24/2024 3:12 PM CDT Abdominal pain, LLQ (left lower quadrant) Supervision of high-risk , first trimester (HC) [facility]IS [facility]IC [facility] P[facility]IP ([facility]) Routine 05/24/2024 2:52 PM CDT Abdominal pain, LLQ (left lower quadrant) TRICHOMONAS, CARLO, AND BACTERIAL VAGINOSIS BY ISSAC Routine 05/24/2024 2:51 PM CDT Abdominal pain, LLQ (left lower quadrant) Supervision of high-risk , first trimester (HC) URINALYSIS MICROSCOPIC Routine 05/24/2024 2:51 PM CDT Abdominal pain, LLQ (left lower quadrant) URINE CULTURE Routine 05/24/2024 2:51 PM CDT Abdominal pain, LLQ (left lower quadrant) HEPATIC FUNCTION PANEL Routine 05/10/2024 10:13 AM CDT Supervision of high-risk , first trimester (HC) History of gestational hypertension HBSAG (HBS) Routine 05/10/2024 10:13 AM CDT Supervision of high-risk , first trimester (HC) RUBELLA IMMUNE STATUS Routine 05/10/2024 10:13 AM CDT Supervision of high-risk , first trimester (HC) CREATININE Routine 05/10/2024 10:13 AM CDT Supervision of high-risk , first trimester (HC) History of gestational hypertension CBC WITH AUTO DIFFERENTIAL Routine 05/10/2024 10:13 AM CDT Supervision of high-risk , first trimester (HC) History of gestational hypertension PROGESTERONE Routine 05/10/2024 10:13 AM CDT Supervision of high-risk , first trimester (HC) URINALYSIS MICROSCOPIC Routine 05/10/2024 10:11 AM CDT Supervision of high-risk , first trimester (HC) TREPONEMA PALLIDUM Routine 05/10/2024 10 :11 AM CDT Supervision of high-risk , first trimester (HC) PROTEIN/CREAT RATIO,URINE Routine 05/10/2024 10:11 AM CDT Supervision of high-risk , first trimester (HC) History of gestational hypertension URINE CULTURE Routine 05/10/2024 10:11 AM CDT Supervision of high-risk , first trimester (HC) UA W/ SEDIMENT EXAM REFLEXED PER CRITERIA Routine 05/10/2024 10:11 AM CDT Supervision of high-risk , first trimester (HC) ANTI HIV 1/2 Routine 09/20/2021 1:29 PM CDT Primigravida in first trimester (HC) from Last 3 Months or Most Recently Relevant to Health Maintenance Results * US ECHOCARDIOGRAM (07/25/2024 11:33 AM CDT) Anatomical Region Laterality Modality HEART Ultrasound 07/25/2024 11:1 6 AM CDT Narrative 07/25/2024 4:17 PM CDT Normal Echocardiogram with noted limitations. COMMENT The results of the echocardiogram were discussed with the parents. echocardiograms can not rule out some ventricular septal defects, persistent patent ductus arteriosus, atrial septal defect, some abnormalities of systemic and pulmonary venous return, coarctation of the aorta, and minor valve abnormalities. Services Provided: Procedures Code US ECHOCARDIOGRAM 38389.0 US DOPPLER COLOR FLOW VELOCITY MAP 19680.0 Procedure Note Rajeev Downey, DO - 07/25/2024 Normal Echocardiogram with noted limitations. COMMENT The results of the echocardiogram were discussed with the parents. echocardiograms can not rule out some ventricular septal defects, persistent patentductus arteriosus, atrial septal defect, some abnormalities of systemic and pulmonary venous return,coarctation of the aorta, and minor valve abnormalities. 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 presentation is Cephalic. EFW 400 grams, percentile: 90. Growth parameters and estimated weight are appropriate for gestational age. No major structural anomalies identified. No markers for aneuploidy identified. The echocardiogram was read by [facility] as normal. Deepest Vertical Pocket of amniotic fluid: 5.31 cm. Placental location: Anterior The cervical length is 3.3 cm. RECOMMENDATIONS: -Return to primary provider for continued care. -Deliver at 39 weeks. -Growth ultrasounds at 28 and 34 weeks due to BMI greater than 40. -Follow up growth in 4-6 weeks to complete limited anatomy. If normal the remainder of ultrasound surveillance can be accomplished locally for patient convenience. -Weekly surveillance starting at 34 weeks. -The patient was directed to schedule with OB provider as discussed at their visit today. -Patient directed to schedule at the front desk person on the way out, or to call [facility] within 2 business days to schedule follow up. CONSULT: Present findings are reassuring. The patient was seen by the Perinatologist today. The previous ultrasound and the record was reviewed. The results of the ultrasound were communicated to the patient. Risks specific to morbid obesity include macrosomia, long labors, increased risk of IUFD, increased risk of Section and increased risk of anomalies. Growth ultrasounds at 28 weeks and 34 weeks will allow screening for growth abnormalities. Weekly surveillance starting at 34 weeks is suggested for patients with a BMI > 40 due to the elevated risk of stillbirth. A echocardiogram was done today because of the increased risk of congenital heart defects in babies of women with a BMI over 40. ACOG recommends weekly testing at 34 weeks for moms with BMI>40. Government regulations related to the Cures act require that this note be released to the patient immediately, sometimes before the referring provider has been contacted. A portion of the information was presented verbally to the patient. The remainder is submitted as background for the referring provider, to be discussed as needed. Medical Decision Making: Moderate Level 28997 Moderate number/complexity of problems including two stable chronic conditions Moderate amount and/or complexity of Data reviewed and analyzed including review of prior ultrasound, ordering another ultrasound, and review of prior external notes, etc. 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 presentation is Cephalic. EFW 400 grams, percentile: 90. Growth parameters and estimated weight are appropriate forgestational age. No major structural anomalies identified. No markers for aneuploidy identified. The echocardiogram was read by [facility] as normal. Deepest Vertical Pocket of amniotic fluid: 5.31 cm. Placental location: Anterior The cervical length is 3.3 cm. RECOMMENDATIONS: -Return to primary provider for continued care. -Deliver at 39 weeks. -Growth ultrasounds at 28 and 34 weeks due to BMI greater than 40. -Follow up growth in 4-6 weeks to complete limited anatomy. If normal theremainder of ultrasound surveillance can be accomplished locally for patientconvenience. -Weekly surveillance starting at 34 weeks. -The patient was directed to schedule with OB provider as discussed attheir visit today. -Patient directed to schedule at the front desk person on the way out, or to callMPP within 2 business days to schedule follow up. CONSULT: Present findings are reassuring. The patient was seen by thePerinatologist today. The previous ultrasound and the record was reviewed. The results ofthe ultrasound were communicated to the patient. Risks specific to morbid obesity includemacrosomia, long labors, increased risk of IUFD, increased risk of Section and increasedrisk of anomalies. Growth ultrasounds at 28 weeks and 34 weeks will allowscreening for growth abnormalities. Weekly surveillance starting at 34 weeks issuggested for patients with a BMI > 40 due to the elevated risk of stillbirth. A echocardiogram was done today because of the increased risk ofcongenital heart defects in babies of women with a BMI over 40. ACOG recommends weekly testing at 34 weeks for moms with BMI>40. Government regulations related to the Century Cures act require thatthis note be released to the patient immediately, sometimes before the referring provider hasbeen contacted. A portion of the information was presented verbally to the patient. Theremainder is submitted as background for the referring provider, to be discussed as needed. Medical Decision Making: Moderate Level 91399 Moderate number/complexity of problems including two stable chronicconditions Moderate amount and/or complexity of Data reviewed and analyzedincluding review of prior ultrasound, ordering another ultrasound, and review of prior externalnotes, etc. Moderate risk of morbidity or mortality related to underlyingconditions Services Provided: ProceduresCode DETAIL ANATOMY & [facility] [id number] us Radha Gallegos MD US Final R esult * HEPARIN LEVEL (07/25/2024 8:55 AM CDT) HEPARIN LEVEL 0.07 See Comment U/mL 07/25/2024 9:25 AM CDT [facility] Blood BLOOD SPECIMEN / Unknown Venipuncture / Unknown 07/25/2024 8:55 AM CDT 07/25/2024 9:00 AM CDT [facility] - 07/25/2024 9:25 AM CDT UFH IV Infusion Therapeutic VTE: 0.3 - 0.7 U/mL UFH IV Infusion Therapeutic AF/Valve Bridgin.3 - 0.5 U/mL UFH IV Infusion Therapeutic ACS: 0.3 - 0.5 U/mL UFH IV Infusion Therapeutic High Bleeding Risk: 0.3 - 0.5 U/mL UFH IV Infusion Prophylactic: 0.11 - 0.29 U/mL UFH SubQ Therapeutic: 0.56 - 0.68 U/mL UFH SubQ Prophylactic: 0.15 - 0.25 U/mL Critical: >1.00 U/mL us Blaise Monterroso DO HEMATOLOGY Lola l Result [facility] SENDOUT [place]NAL ZIP [address] [place] [address] * (ABNORMAL) CBC WITH AUTO DIFFERENTIAL (07/04/2024 9:38 AM CDT) WHITE BLOOD COUNT 10.2 4.5 - 11.0 thou/cu mm 07/04/2024 10:08 AM CDT [facility] RED BLOOD COUNT 4.62 4.00 - 5.20 mil/cu mm 07/04/2024 10:08 AM T [facility] HEMOGLOBIN 12.9 12.0 - 16.0 g/dL 07/04/2024 10:08 AM T [facility] HEMATOCRIT 39.0 33.0 - 51.0 % 07/04/2024 10:08 AM T [facility] MCV 84 80 - 100 fL 07/04/2024 10:08 AM T [facility] MCH 27.9 26.0 - 34.0 pg 07/04/2024 10:08 AM T [facility] MCHC 33.1 32.0 - 36.0 g/dL 07/04/2024 10:08 AM [facility] RDW 13.1 11.5 - 15.5 % 07/04/2024 10:08 AM [facility] PLATELET COUNT 282 140 - 440 thou/cu mm 07/04/2024 10:08 AM [facility] MPV 9.8 6.5 - 11.0 fL 07/04/2024 10:08 AM [facility] NRBC 0.0 % 07/04/2024 10:08 AM [facility] ABS NRBC 0.0 thou /cu mm 07/04/2024 10:08 AM [facility] % NEUT 75.1 % 07/04/2024 10:08 AM [facility] % LYMPH 19.5 % 07/04/2024 10:08 AM [facility] % MONO 2.9 % 07/04/2024 10:08 AM [facility] % EOS 1.0 % 07/04/2024 10:08 AM [facility] % BASO 0.3 % 07/04/2024 10:08 AM [facility] % IMMATURE GRAN (METAS,MYELOS,DC OS) 1.2 % 07/04/2024 10:08 AM [facility] ABSOLUTE NEUTROPHILS 7.7(H) 1.7 - 7.0 thou/cu mm 07/04/2024 10:08 AM [facility] ABSOLUTE LYMPHOCYTES 2.0 0.9 - 2.9 thou/cu mm 07/04/2024 10:08 AM [facility] ABSOLUTE MONOCYTES 0.3 <0.9 thou/cu mm 07/04/2024 10:08 AM [facility] ABSOLUTE EOSINOPHILS 0.1 <0.5 thou/cu mm 07/04/2024 10:08 AM [facility] ABSOLUTE BASOPHILS 0.0 <0.3 thou/cu mm 07/04/2024 10:08 AM CDT [facility] ABSOLUTE IMMATURE GRANULOCYTES(MET ,MYELOS,PROS) 0.1 <0.3 thou/cu mm 07/04/2024 10:08 AM CDT [facility] Blood BLOOD SPECIMEN / Unknown Venipuncture / Unknown 07/04/2024 9:38 AM CDT 07/04/2024 9:56 AM CDT us Blaise Monterroso DO HEMATOLOGY Lola l Result [facility] [address] [place] [address], * (ABNORMAL) BASIC METABOLIC PANEL (07/04/2024 9:38 AM CDT) SODIUM 137 136 - 145 mmol/L 07/04/2024 10:28 AM CDT [facility] POTASSIUM 3.4(L) 3.5 - 5.1 mmol/L 07/04/2024 10:28 AM T [facility] CHLORIDE 102 98 - 107 mmol/L 07/04/2024 10:28 AM CDT [facility] CO2,TOTAL 19(L) 22 - 29 mmol/L 07/04/2024 10:28 AM CDT [facility] ANION GAP 16 5 - 18 07/04/2024 10:28 AM T [facility] GLUCOSE 143(H) 70 - 99 mg/dL 07/04/2024 10:28 AM CDT [facility] CALCIUM 9.8 8.8 - 10.4 mg/dL 07/04/2024 10:28 AM T [facility] Comment: Reference ranges for this test were updated on 12/22/2023 to reflect our healthy population more accurately. Reference range changes are not retroactively applied to results, but previous results using the same methodology can be interpreted in the context of the new reference range. BUN 5(L) 6 - 20 mg/dL 07/04/2024 10:28 AM CDT [facility] CREATININE 0.62 0.50 - 0.90 mg/dL 07/04/2024 10:28 AM CDT [facility] BUN/CREAT RATIO 8(L) 10 - 20 10:28 AM CDT [facility] eGFR >90 >90 mL/min/1. 73m2 07/04/2024 10:28 AM CDT [facility] Comment:As of 2021, eG FR is calculated by the CKD-EPI creatinine equation without race adjustment. eGFR can be influenced by muscle mass, exercise, and diet. The reported eGFR is an estimation only and is only applicable if the renal function is stable. Blood BLOOD SPECIMEN / Unknown Venipuncture / Unknown 07/04/2024 9:38 AM CDT 07/04/2024 9:57 AM CDT Blaise Monterroso DO CHEMISTRY Lola l Result [facility] [address] [place] [address], * PATH TISSUE EXAM (06/06/2024 3:09 PM CDT) Case Report Pathology Report Case: [id number] Authorizing Provider: Radha Gallegos MD Collected: 06/06/2024 1509 Ordering Location: [facility] Received: 06/07/2024 1132 Clinic Pathologist: Mariano Arciniega MD Specimens: A) - Cervical Biopsy, 5 o'clock B) - Cervical Biopsy, 10 o'clock 06/09/2024 9:23 AM CD[address] [facility] Final Diagnosis A) CERVIX, 5:00, BIOPSY: 1. Benign cervical mucosa a. Sampling: Ectocervix b. Transformation zone: Not visualized 2. Negative for glandular neoplasia, squamous intraepithelial lesion, and malignancy B) CERVIX, 10:00, BIOPSY: 1. Benign cervical mucosa a. Sampling: Ectocervix b. Transformation zone: Not visualized 2. Negative for glandular neoplasia, squamous intraepithelial lesion, and malignancy 06/09/2024 9:23 AM CDT [facility] at 0923 CDT Clinical Information History of LSIL/YULIANA 1 after LEEP 06/09/2024 9:23 AM CDT [facility] Gross Description A) Received in formalin, labeled with the patient's name and A, is a 0.6 cm juárez tissue fragment, which is submitted in toto in 1 cassette. B) Received fresh labeled with the patient's name and B, is a 0.6 cm juárez tissue fragment, which is submitted in toto in 1 cassette. JKG 06/07/2024 06/09/2024 9:23 AM CDT [facility] Microscopic Description The final diagnosis is based on microscopic examination of appropriate sections of all specimens. 06/09/2024 9:23 AM CDT [facility] Additional Information Interpreted at [facility] - [address] [facility] [address], [place] [address] 06/09/2024 9:23 AM CDT [facility] Other (Cervical Biopsy) Non-Blood / Unknown 06/06/2024 3:09 PM CDT 06/07/2024 11:32 AM CDT Specimen (specimen) (Cervical Biopsy) Non-Blood / Unknown 06/06/2024 3:10 PM CDT 06/07/2024 11:32 AM CDT us Radha Gallegos MD PATHOLOGY/CYTOLOGY Lola ruff Result [facility] [address] [place] [address], * DEVELOPMENT OFFICER THIN PREP PAP SCREEN IMAGED (06/06/2024 3:05 PM CDT) Case Report Gynecologic Cytology Report Case: [id number] Authorizing Provider: Radha Gallegos MD Collected: 06/06/2024 1505 Ordering Location: [facility] Received: 06/06/2024 1626 Clinic First Screen: Baccam, Minie Rescreen: Julia Espinal Specimen: DEVELOPMENT OFFICER ThinPrep Vial Screening, Cervical 06/09/2024 2:23 PM CDT [facility] INTERPRETATION/ RESULT NEGATIVE FOR INTRAEPITHELIAL LESION OR MALIGNANCY (NIL) (none) 06/09/2024 2:23 PM CDT [facility] at 1423 CDT SPECIMEN ADEQUACY Satisfactory for evaluation No endocervical component seen 06/09/2024 2:23 PM CDT [facility] HPV REQUEST HPV and PAP 06/09/2024 2:23 PM CDT [facility] Date of LMP 02/16/2024 06/09/2024 2:23 PM CDT [facility] Last Pap Date 09/18/23 06/09/2024 2:23 PM CDT [facility] Last Pap Result LSIL 2:23 PM CDT [facility] Abnormal Pap or Devon Bx in last 5 years Yes 06/09/2024 2:23 PM CDT [facility] Menstrual Status 06/09/2024 2:23 PM CDT [facility] Devon Bx Done Today No 06/09/2024 2:23 PM CDT [facility] Additional Information None given 06/09/2024 2:23 PM CDT [facility] Comment: Cytology is screened at [facility] - [address], [place] [address] and [facility] - [address], [place] [address] and [facility] - [address] [place] [address] Interpreted at [facility] - [address], [place] [address] Automated Review Successful 06/09/2024 2:23 PM CDT [facility] Comment:Specimen processed s uccessfully by automated psychiatric nurse practitioner device, ThinPrep Imaging System, [employer] ANCILLARY TESTING DEVELOPMENT OFFICER HPV Ordered, Please see separate report 06/09/2024 2:23 PM CDT [facility] Note The pap test is a screening technique, not a diagnostic procedure. It is used primarily to screen for squamous cancers and precursor lesions. Published studies have shown that it is subject to both false negative and false positive results. The pap test should not be used as the sole means to diagnose or exclude pre-malignant and malignant lesions. 06/09/2024 2:23 PM CDT [facility] Other (Cervical) Non-Blood / Unknown 06/06/2024 3:05 PM CDT 06/06/2024 4:26 PM CDT us Radha Gallegos MD PATHOLOGY/CYTOLOGY Lola l Result [facility] [address] [place] [address], * (ABNORMAL) HPV HIGH RISK (06/06/2024 3:05 PM CDT) TYPE 16 Negative Negative 06/09/2024 2:55 PM CDT [facility] TYPE 18 Negative Negative 06/09/2024 2:55 PM CDT [facility] OTHER HIGH RISK TYPES Positive(A) Negative 06/09/2024 2:55 PM CDT [facility] Other (Cervical) Non-Blood / Unknown 06/06/2024 3:05 PM CDT 06/07/2024 9:56 AM CDT Narrative [facility] - 06/09/2024 2:55 PM CDT Specimen is positive for the DNA of any one of, or combination of, the following high risk HPV types: 31, 33, 35, 39, 45, 51, 52, 56, 58, 59, 66, 68. HPV types 16 and 18 DNA were undetectable or below the pre-set threshold. Methodology: [employer] 4800 HPV Test us Radha Gallegos MD MICROBIOLOGY Final R esult [facility] [address] [place] [address], [place] * US OB 1ST TRI SINGLE TA (05/24/2024 3:12 PM CDT) Anatomical Region Laterality Modality , 1ST TRIMESTER Ultrasound 05/24/2024 3:22 PM CDT Impressions 05/24/2024 3:22 PM CDT Normal first trimester OB ultrasound exam. Gestational age calculated at 11 weeks 3 days with a sonographic due date of 12/10/2024. Dictated by Silvano Lr MD @ 05/24/2024 3:22:46 PM (Electronically Signed) Narrative 05/24/2024 3:22 PM CDT For Patients: As a result of the Cures Act, medical imaging exams and procedure reports are released immediately into your electronic medical record. You may view this report before your referring provider. If you have questions, please contact your health care provider. INDICATION: Left lower quadrant pain COMPARISON: 05/05/2024 TECHNIQUE: Real-time navarro-scale imaging of the pelvis was performed. FINDINGS: Sonographic imaging demonstrates a single living intrauterine gestation. The embryo demonstrates a regular cardiac rate measuring 165 beats per minute. The embryo`s crown-rump length measurement of 4.6 cm corresponds to a gestational age of 11 weeks 3 days with a sonographic due date of 12/10/2024. There is a normal-appearing yolk sac. There are no gross abnormalities noted within the embryo at this early state of development. The gestational sac has a normal appearance. There is no evidence of a perigestational hemorrhage. The amount of fluid within the sac appears appropriate for gestational age. The cervix is closed. The myometrium appears normal. The ovaries are of normal size. There are no suspicious fluid collections noted in the cul-de-sac. Procedure Note Silvano Lr MD - 05/24/2024 For Patients: As a result of the Cures Act, medical imagingexams and procedure reports are released immediately into your electronicmedical record. You may view this report before your referring provider.If you have questions, please contact your health care provider. INDICATION: Left lower quadrant pain COMPARISON: 05/05/2024 TECHNIQUE: Real-time navarro-scale imaging of the pelvis was performed. FINDINGS: Sonographic imaging demonstrates a single living intrauterine gestation.The embryo demonstrates a regular cardiac rate measuring 165 beats perminute. The embryo`s crown-rump length measurement of 4.6 cm correspondsto a gestational age of 11 weeks 3 days with a sonographic due date of12/10/2024. There is a normal-appearing yolk sac. There are no grossabnormalities noted within the embryo at this early state of development.The gestational sac has a normal appearance. There is no evidence of aperigestational hemorrhage. The amount of fluid within the sac appearsappropriate for gestational age. The cervix is closed. The myometrium appears normal. The ovaries are ofnormal size. There are no suspicious fluid collections noted in [id number]. IMPRESSION: Normal first trimester OB ultrasound exam. Gestational age calculated at11 weeks 3 days with a sonographic due date of 12/10/2024. Dictated by Silvano Lr MD @ 05/24/2024 3:22:46 PM (Electronically Signed) us Roseline Munoz MD Final Resul t * (ABNORMAL) POCT Urinalysis Dipstick Only [[id number]] (05/24/2024 2:52 PM CDT) PH 6.0 5.0 - 8.0 [facility] SPECIFIC GRAVITY 1.015 1.001 - 1.035 [facility] GLUCOSE NEGATIVE NEGATIVE [facility] BILIRUBIN NEGATIVE NEGATIVE [facility] KETONES NEGATIVE NEGATIVE [facility] OCCULT BLOOD TRACE(A) NEGATIVE [facility] PROTEIN NEGATIVE NEGATIVE [facility] NITRITE NEGATIVE NEGATIVE [facility] LEUKOCYTE ESTERASE NEGATIVE NEGATIVE [facility] Urine URINE SPECIMEN / Unknown 05/24/2024 2:52 PM CDT 05/24/2024 2:52 PM CDT Roseline Munoz MD URINE Final Resul t [facility] [address] [place] [address], [place] [phone] [facility] [address] [place] [address] * TRICHOMONAS, CARLO, AND BACTERIAL VAGINOSIS BY ISSAC (05/24/2024 2:51 PM CDT) CARLO SPECIES Negative Negative 2:39 AM CDT [facility] CARLO GLABRATA Negative Negative 05/25/2024 2:39 AM CDT [facility] TRICHOMONAS VVA Negative Negative 2:39 AM CDT [facility] BACTERIAL VAGINOSIS Negative Negative 05/25/2024 2:39 AM CDT [facility] Other VAGINAL SWAB / Unknown Non-Blood / Unknown 05/24/2024 2:51 PM CDT 05/24/2024 2:51 PM CDT Roseline Munoz MD MICROBIOLOGY Final Resul t Performing Organization Address City/[facility]/ZIP Co de Phone Number [facility] [address] [address], [place] * (ABNORMAL) URINALYSIS MICROSCOPIC [12514.1] - routine (05/24/2024 2:51 PM CDT) Only the most recent of2 resultswithin the time period is included. RBC 0-2 0-2, None Seen /HPF 05/25/2024 12:20 AM CDT [facility] [facility] WBC 3-5 0-2, 3-5, None Seen /HPF 05/25/2024 12:20 AM CDT [facility] BACTERIA Moderate(A ) None Seen, Rare, Few Bacteria/ HPF 05/25/2024 12:20 AM CDT [facility] EPITHELIAL CELLS None Seen None Seen, Few Epi/HPF 05/25/2024 12:20 AM CDT [facility] HYALINE CASTS 0-2 0-2, 3-5 /LPF 05/25/2024 12:20 AM CDT [facility] Urine URINE SPECIMEN / Unknown Non-Blood / Unknown 05/24/2024 2:51 PM CDT 05/24/2024 2:51 PM CDT Roseline Munoz MD URINE Final Resul t Performing Organization Address City/[facility]/ZIP Co de Phone Number [facility] [address] [place] [phone], * URINE CULTURE [26020.2] (05/24/2024 2:51 PM CDT) Only the most recent of2 resultswithin the time period is included. CULTURE <10,000 CFU/mL multiple organisms 05/26/2024 8:22 AM CDT [facility] Urine URINE SPECIMEN / Unknown Non-Blood / Unknown 05/24/2024 2:51 PM CDT 05/24/2024 2:51 PM CDT Roseline Munoz MD MICROBIOLOGY Final Resul t Performing Organization Address City/[facility]/ZIP Co de Phone Number [facility] [address] [place] [address], * RUBELLA IMMUNE STATUS (05/10/2024 10:13 AM CDT) RUBELLA AB (IGG), IMMUNE STATUS 1.90 Index [facility] Comment: Index Interpretation ----- <0.90 Not consistent with immunity 0.90-0.99 Equivocal > or = 1.00 Consistent with immunity The presence of rubella IgG antibody suggests immunization or past or current infection with rubella virus. Blood BLOOD SPECIMEN / Unknown 05/10/2024 10:13 AM CDT 05/10/2024 10:14 AM CDT Radha Gallegos MD SEND OUTS Final R esult Performing Organization Address [facility]/ZIP Co de Phone Number [facility] [employer] [facility] [address] [place] [address], [place] [phone] [facility] [address] [place] [address] * HBSAG (HBS) (05/10/2024 10:13 AM CDT) HEPATITIS B SURFACE ANTIGEN NON-REACTI VE NON-REACTI VE [facility] Comment: For additional information, please refer to http://education.[employer]faq/FAB724 (This link is being provided for informational/ educational purposes only.) Blood BLOOD SPECIMEN / Unknown 05/10/2024 10:13 AM CDT 05/10/2024 10:14 AM CDT Radha Gallegos MD SEND OUTS Final R esult Performing Organization Address [facility] Co de Phone Number [employer] [employer] [facility] [address] [place] [address], [place] [phone] [facility] [address] [place] [address] * CREATININE (05/10/2024 10:13 AM CDT) CREATININE 0.65 0.50 - 0.96 mg/dL [facility] EGFR 123 > OR = 60 mL/min/1.73 m2 [facility] Blood BLOOD SPECIMEN / Unknown 05/10/2024 10:13 AM CDT 05/10/2024 10:14 AM CDT Radha Gallegos MD CHEMISTRY Final R esult Performing Organization Address City/[facility]/ZIP Co de Phone Number [employer] [facility] [address] [place] [phone], [facility] [address] [facility] [place] [address] * CBC AND DIFFERENTIAL (05/10/2024 10:13 AM CDT) [facility] WHITE BLOOD CELL COUNT 8.3 3.8 - 10.8 Thousand/u L [facility] RED BLOOD CELL COUNT 4.60 3.80 - 5.10 Million/uL [facility] HEMOGLOBIN 13.1 11.7 - 15.5 g/dL [facility] HEMATOCRIT 39.5 35.0 - 45.0 % [facility] MCV 85.9 80.0 - 100.0 fL [facility] MCH 28.5 27.0 - 33.0 pg [facility] MCHC 33.2 32.0 - 36.0 g/dL [facility] Comment: For adults, a slight decrease in the calculated MCHC value (in the range of 30 to 32 g/dL) is most likely not clinically significant; however, it should be interpreted with caution in correlation with other red cell parameters and the patient's clinical condition. RDW 12.4 11.0 - 15.0 % [facility] PLATELET COUNT 334 140 - 400 Thousand/u L [facility] MPV 9.6 7.5 - 12.5 fL [facility] ABSOLUTE NEUTROPHILS 6,009 1,500 - 7,800 cells/uL [facility] ABSOLUTE LYMPHOCYTES 1,735 850 - 3,900 cells/uL [facility] ABSOLUTE MONOCYTES 432 200 - 950 cells/uL [facility] ABSOLUTE EOSINOPHILS 83 15 - 500 cells/uL [facility] ABSOLUTE BASOPHILS 42 0 - 200 cells/uL [facility] NEUTROPHILS 72.4 % [facility] LYMPHOCYTES 20.9 % [facility] MONOCYTES 5.2 % [facility] EOSINOPHILS 1.0 % [facility] BASOPHILS 0.5 % [facility] Blood BLOOD SPECIMEN / Unknown 05/10/2024 10:13 AM CDT 05/10/2024 10:14 AM CDT Radha Gallegos MD HEMATOLOGY Final R esult Performing Organization Address [facility] Co de Phone Number [employer] [facility] [address] [place] [address], [place] [phone] [facility] [address] [place] [address] * PROGESTERONE (05/10/2024 10:13 AM CDT) PROGESTERONE 20.6 ng/mL [facility] Comment: Reference Ranges Female Follicular Phase < 1.0 Luteal Phase 2.6-21.5 Post menopausal < 0.5 1st Trimester 4.1-34.0 2nd Trimester 24.0-76.0 3rd Trimester 52.0-302.0 Blood BLOOD SPECIMEN / Unknown 05/10/2024 10:13 AM CDT 05/10/2024 10:14 AM CDT Radha Gallegos MD SEND OUTS Final R esult Performing Organization Address [facility] Co de Phone Number [employer] [facility] [address] [place] [address], [place] [phone] [employer] [address] [place] [address] * HEPATIC FUNCTION PANEL (05/10/2024 10:13 AM CDT) PROTEIN, TOTAL 7.3 6.1 - 8.1 g/dL [facility] ALBUMIN 4.3 3.6 - 5.1 g/dL [facility] GLOBULIN 3.0 1.9 - 3.7 g/dL (calc) [facility] ALBUMIN/GLOBULIN RATIO 1.4 1.0 - 2.5 (calc) [facility] BILIRUBIN, TOTAL 0.4 0.2 - 1.2 mg/dL [facility] BILIRUBIN, DIRECT 0.1 < OR = 0.2 mg/dL [facility] BILIRUBIN, INDIRECT 0.3 0.2 - 1.2 mg/dL (calc) [facility] ALKALINE PHOSPHATASE 91 31 - 125 U/L [facility] AST 26 10 - 30 U/L [facility] ALT 20 6 - 29 U/L [facility] Blood BLOOD SPECIMEN / Unknown 05/10/2024 10:13 AM CDT 05/10/2024 10:14 AM CDT Radha Gallegos MD CHEMISTRY Final R esult [employer] [facility] [address] [place] [address], [place] [phone] [address] * TREPONEMA PALLIDUM (05/10/2024 10:11 AM CDT) TREPONEMA PALLIDUM Non-Reacti ve Non-Reacti ve 05/10/2024 3:22 PM CDT [facility] Blood BLOOD SPECIMEN / Unknown [facility] / Unknown 05/10/2024 10:11 AM CDT 05/10/2024 10:11 AM CDT Radha Gallegos MD SEND OUTS Final R esult [facility] [address] [place] [address], * PROTEIN/CREAT RATIO,URINE (05/10/2024 10:11 AM CDT) PROTEIN QUANT,RAND URINE 12 1 - 14 mg/dL 05/10/2024 5:10 PM CDT [facility] CREAT,RANDOM URINE 172.0 28.0 - 217.0 mg/dL 05/10/2024 5:10 PM CDT [facility] PROT/CREAT RATIO,UR 0.1 <0.2 05/10/2024 5:10 PM CDT [facility] Urine URINE SPECIMEN / Unknown Non-Blood / Unknown 05/10/2024 10:11 AM CDT 05/10/2024 10:11 AM CDT us Radha Gallegos MD URINE Final R esult [facility] [address] [place] [address], [place] * (ABNORMAL) UA W/ SEDIMENT EXAM REFLEXED PER CRITERIA (05/10/2024 10:11 AM CDT) COLOR Yellow Yellow Color 05/10/2024 4:22 PM CDT [facility] CLARITY Cloudy(A) Clear Clarity 05/10/2024 4:22 PM T [facility] SPECIFIC GRAVITY,URINE 1.020 1.010, 1.015, 1.020, 1.025 05/10/2024 4:22 PM T [facility] PH,URINE 6.0 6.0, 7.0, 8.0, 5.5, 6.5, 7.5, 8.5 05/10/2024 4:22 PM T [facility] UROBILINOGEN, QUALITATIVE Normal Normal EU/dl 05/10/2024 4:22 PM T [facility] PROTEIN, URINE Negative Negative mg/dL 05/10/2024 4:22 PM CDT [facility] GLUCOSE, URINE Negative Negative mg/dL 05/10/2024 4:22 PM T [facility] KETONES,URINE Negative Negative mg/dL 05/10/2024 4:22 PM T [facility] BILIRUBIN,URI NE Negative Negative 05/10/2024 4:22 PM CDT [facility] OCCULT BLOOD,URINE Negative Negative 05/10/2024 4:22 PM CDT [facility] NITRITE Negative Negative 05/10/2024 4:22 PM CDT [facility] LEUKOCYTE ESTERASE Negative Negative 05/10/2024 4:22 PM CDT [facility] Urine URINE SPECIMEN / Unknown Non-Blood / Unknown 05/10/2024 10:11 AM CDT 05/10/2024 10:11 AM CDT Radha Gallegos MD URINE Final R esult [facility] [address] [place] [address], * ANTI HIV 1/2 (09/20/2021 1:29 PM CDT) HIV-1/HIV-2 ANTIBODY Non-Reacti ve Non-Reacti ve 09/21/2021 11:27 AM CDT [facility] Comment:HIV-1 p24 and HIV-1/ HIV-2 Ab not detected. Blood BLOOD SPECIMEN / Unknown Venipuncture / Unknown 09/20/2021 1:29 PM CDT 09/20/2021 1:39 PM CDT Mercy Yeung DO SEND OUTS Final Resu lt [facility] [address] [place] [address], from Last 3 Months or Most Recently Relevant to Health Maintenance Insurance [employer] Advance Directives * Full Code (Latest Code [...] Comments Code Status Discussion: Other Care Teams Business Solutions Consultant Relationship Specialty Start Date End Date Radha Gallegos [place] [address] PCP - General Family Practice 10/03/22
[2024-08-07 14:34] VITALS: BP 120/65; PULSE 90
== END 2024-08-07 14:44 | disposition home or self-care (01) ==
LOC: OB OUT 14:07 → OB 14:07
PROVIDERS: PCP Family Medicine; Visit Provider Family Medicine
DX: O36.8120 Decreased fetal movements, second trimester, not applicable or unspecified (principal); Z3A.22 22 weeks gestation of pregnancy
CPT/HCPCS: G0463

== ENCOUNTER 2024-10-06 16:22 | Outpatient (CLI) | payer BC, SELFPAY ==
[2024-10-06] VITALS (9 sets, daily range): BP systolic 101–129; BP diastolic 55–70; PULSE 76–96; RESP 22; TEMP 37.2; O2SAT 99
[2024-10-06 17:34] LABS: Hematocrit 31.8 % (33.0-51.0); Hemoglobin* 10.3 gm/dL (12.0-16.0); Mean Corpuscular HGB Conc 32 gm/dL (32-36); Mean Corpuscular Hemoglobin 28 pg (26-34); Mean Corpuscular Volume 85 fL (80-100); Red Blood Count 3.73 m/uL (4.00-5.20); White Blood Count* 12.97 K/uL (4.50-11.00)
[2024-10-06 17:38] LABS: Slide Review Reflex No
[2024-10-06 17:57] LABS: Protein Creatinine Ratio Urine 0.25 (0-0.19)
[2024-10-06 18:14] LABS: Blood Urea Nitrogen* 3 mg/dL (5-24); Creatinine* 0.5 mg/dL (0.5-1.5); Estimated Glomerular Filt Rate 130 ml/min
[2024-10-06 18:15] LABS: Alanine Aminotransferase* 11 U/L (4-35); Aspartate Amino Transferase* 18 U/L (12-35)
--- NOTE | 2024-10-06 19:21 | PC.OBNST ---
NST Note NST Note Start: 10/06/24 16:26 Freq: ONCE Status: Active Protocol: Document 10/06/24 16:26 [facility] (Rec: 10/06/24 19:20 [facility] [id number]) NST Note 2 Para (# of births) 1 EDC 12/11/24 Gestational Age In 30 Weeks & 4 Days Weeks & Days High Risk Factors High Blood Pressure - Gestational Other Complaints Patient came to be evaluated for high blood pressure readings at home and new onset of swelling in the lower extremities. Reactive Yes Appropriate for Yes Gestational Age CHAVEZ Motta, RN Date 10/06/24 Reactive Yes Appropriate for Yes Gestational Age CHAVEZ Mauro RN Date 10/06/24 OB NST charge Yes Complete NST Note Yes via Write Note The provider's electronic signature indicates the NST is reactive/appropriate for gestational age. *Note to provider: If an addendum is required, open the patient's chart and click on the note under the Nurse/Allied Health tab.
== END 2024-10-06 18:40 | disposition home or self-care (01) ==
LOC: OB OUT 16:22 → OB 16:22
PROVIDERS: Family Medicine; PCP Family Medicine; Visit Provider Family Medicine
DX: O13.3 Gestational [pregnancy-induced] hypertension without significant proteinuria, third trimester (principal); R51.9 Headache, unspecified; Z3A.30 30 weeks gestation of pregnancy
CPT/HCPCS: 36415; 59025; 82565; 82570; 84156; 84450; 84460; 84520; 85027; G0463

== ENCOUNTER 2024-10-08 19:39 | Outpatient (CLI) | payer BC, SELFPAY ==
[2024-10-08 20:01] VITALS: BP 132/75; PULSE 82
[2024-10-08 20:02] LABS: Hematocrit 32.2 % (33.0-51.0); Hemoglobin* 10.6 gm/dL (12.0-16.0); Mean Corpuscular HGB Conc 33 gm/dL (32-36); Mean Corpuscular Hemoglobin 28 pg (26-34); Mean Corpuscular Volume 85 fL (80-100); Red Blood Count 3.81 m/uL (4.00-5.20); White Blood Count* 12.50 K/uL (4.50-11.00)
[2024-10-08 20:03] LABS: Slide Review Reflex No
[2024-10-08 20:18] LABS: Alanine Aminotransferase* 12 U/L (4-35); Aspartate Amino Transferase* 21 U/L (12-35); Blood Urea Nitrogen* 6 mg/dL (5-24); Creatinine* 0.6 mg/dL (0.5-1.5); Estimated Glomerular Filt Rate 125 ml/min
[2024-10-08 20:20] VITALS: BP 132/69; PULSE 80
[2024-10-08 20:24] LABS: INR 0.94 (0.91-1.10); Prothrombin Time 13.3 Seconds
--- NOTE | 2024-10-08 20:39 | PC.OBNST ---
NST Note NST Note Start: 10/08/24 19:46 Freq: ONCE Status: Active Protocol: Document 10/08/24 20:36 YANNICKAshia (Rec: 10/08/24 20:37 YANNICK [id number]) NST Note 2 Para (# of births) 1 EDC 12/11/24 Gestational Age In 30 Weeks & 6 Days Weeks & Days High Risk Factors High Blood Pressure - Gestational Patient Presented Headache with Complaint(s) of Reactive Yes Appropriate for Yes Gestational Age RN Alea RN Date 10/08/24 Reactive Yes Appropriate for Yes Gestational Age RN Evelia RN Date 10/08/24 OB NST charge Yes Complete NST Note Yes via Write Note The provider's electronic signature indicates the NST is reactive/appropriate for gestational age. *Note to provider: If an addendum is required, open the patient's chart and click on the note under the Nurse/Allied Health tab.
[2024-10-08 20:40] VITALS: BP 126/65; PULSE 82
[2024-10-08 20:56] LABS: Protein Creatinine Ratio Urine 0.10 (0-0.19)
[2024-10-08 21:01] VITALS: BP 127/68; PULSE 89
== END 2024-10-08 21:25 | disposition home or self-care (01) ==
LOC: OB OUT 19:40 → OB 19:40
PROVIDERS: PCP Family Medicine; Visit Provider Family Medicine
DX: O13.3 Gestational [pregnancy-induced] hypertension without significant proteinuria, third trimester (principal); R51.9 Headache, unspecified; Z3A.30 30 weeks gestation of pregnancy
CPT/HCPCS: 36415; 59025; 82565; 82570; 84156; 84450; 84460; 84520; 84550; 85027; 85384; 85610; 85730; G0463

== ENCOUNTER 2024-11-08 14:52 | Outpatient (CLI) | payer BC, SELFPAY ==
[2024-11-08] VITALS (19 sets, daily range): BP systolic 115–141; BP diastolic 65–80; PULSE 87–106; RESP 16; TEMP 36.9; O2SAT 96–100
[2024-11-08 15:49] LABS: Hematocrit* 31.8 % (33.0-51.0); Hemoglobin* 10.5 gm/dL (12.0-16.0); Mean Corpuscular HGB Conc 33 gm/dL (32-36); Mean Corpuscular Hemoglobin 28 pg (26-34); Mean Corpuscular Volume 84 fL (80-100); Red Blood Count* 3.81 m/uL (4.00-5.20); White Blood Count* 12.89 K/uL (4.50-11.00)
[2024-11-08 15:56] LABS: Slide Review Reflex No
[2024-11-08 16:04] LABS: Alanine Aminotransferase* 7 U/L (4-35); Aspartate Amino Transferase* 17 U/L (12-35); Blood Urea Nitrogen* 3 mg/dL (5-24); Creatinine* 0.5 mg/dL (0.5-1.5); Estimated Glomerular Filt Rate 130 ml/min
[2024-11-08 16:06] LABS: Protein Creatinine Ratio Urine 0.26 (0-0.19)
[2024-11-08] MEDS: ACETAMINOPHEN 500 MG TABLET 1000 MG PO (16:24)
--- NOTE | 2024-11-08 17:25 | P.OBLDTN_ITS ---
OB - Triage/Final Diagnosis Visit Information Time Seen by Provider: : Date Seen: 11/08/24 Date of evaluation: 11/08/24 Narrative: The patient is a 29 year old 2 para 1001 at 35.2 weeks gestation, who presents with elevated BP. Patient states she has been feeling unwell with uri symptoms x 2-3 days. She was feeling worse this morning and had the school nurse check her BP. Her BP was 150s/90s, so she came to [facility] for further evaluation. Evaluation Laboratory results: Laboratory Tests 11/08/24 11/08/24 Range/Units 15:40 15:30 WBC 12.89 H (4.50-11.00) K/uL RBC 3.81 L (4.00-5.20) m/uL Hgb 10.5 L (12.0-16.0) gm/dL Hct 31.8 L (33.0-51.0) % MCV 84 (80-100) fL MCH 28 (26-34) pg MCHC 33 (32-36) gm/dL Plt Count 236 (140-440) K/uL BUN 3 L (5-24) mg/dL Creatinine 0.5 (0.5-1.5) mg/dL Estimated GFR 130 ml/min AST 17 (12-35) U/L ALT 7 (4-35) U/L Urine Creatinine 69.5 mg/dL Protein/Creatinin Ratio 0.26 H (0-0.19) Urine Total Protein 18 mg/dL Vital signs: Vital Signs - 24 hr 11/08/24 15:02 11/08/24 15:07 11/08/24 15:12 Temperature Pulse Rate Respiratory Rate Blood Pressure Pulse Oximetry 97 96 97 11/08/24 15:13 11/08/24 15:14 11/08/24 15:14 Temperature 98.5 F Pulse Rate 95 Respiratory Rate 16 Blood Pressure 140/79 H Pulse Oximetry 11/08/24 15:17 11/08/24 15:22 11/08/24 15:27 Temperature Pulse Rate Respiratory Rate Blood Pressure Pulse Oximetry 97 99 97 11/08/24 15:28 11/08/24 15:28 11/08/24 15:32 Temperature Pulse Rate 90 Respiratory Rate Blood Pressure 140/77 H Pulse Oximetry 98 11/08/24 15:43 11/08/24 15:43 11/08/24 15:58 Temperature Pulse Rate 90 Respiratory Rate Blood Pressure 136/78 129/68 Pulse Oximetry 11/08/24 15:58 11/08/24 16:13 11/08/24 16:13 Temperature Pulse Rate 95 90 Respiratory Rate Blood Pressure 141/72 H Pulse Oximetry 11/08/24 16:29 11/08/24 16:29 11/08/24 16:43 Temperature Pulse Rate 89 Respiratory Rate Blood Pressure 134/80 130/72 Pulse Oximetry 11/08/24 16:43 11/08/24 16:58 11/08/24 16:58 Temperature Pulse Rate 88 93 Respiratory Rate Blood Pressure 129/67 Pulse Oximetry 11/08/24 17:12 11/08/24 17:13 11/08/24 17:13 Temperature Pulse Rate 87 Respiratory Rate Blood Pressure 115/65 Pulse Oximetry 99 11/08/24 17:17 Temperature Pulse Rate Respiratory Rate Blood Pressure Pulse Oximetry 100 Fetus (Single) Heart Rate Baseline: 120 Special Population Paraprofessional Variability: Moderate (6-25) Monitor Accelerations: Present (to 165) Monitor Decelerations: None Final Diagnosis (1) Elevated BP without diagnosis of hypertension: Status: Acute Problem details: Has likely gestational hypertension, but BP was not >140/90 4 hours apart. BP trending down to normal. (most recent 115/65). Will monitor BP closely. Follow up with Dr. Gallegos on for recheck. Continue to follow BP at home. (2) History of pre-eclampsia in prior , currently : Status: Acute Problem details: Labs reassuring. Prot/cr ratio 0.26 (3) History of pulmonary embolism: Status: Acute Problem details: Dx'd 3 weeks pp after her first delivery, on lovenox (4) Headache: Status: Acute Problem details: improved with Tylenol. Likely 2/2 URI Total Time Spent Total Time Spent: 30
--- NOTE | 2024-11-08 20:23 | PC.OBNST ---
NST Note NST Note Start: 11/08/24 15:16 Freq: ONCE Status: Active Protocol: Document 11/08/24 17:30 [facility] (Rec: 11/08/24 20:22 [facility] [id number]) NST Note 2 Para (# of births) 1 EDC 12/11/24 Gestational Age In 35 Weeks & 2 Days Weeks & Days High Risk Factors High Blood Pressure - Gestational Patient Presented Other with Complaint(s) of Other Complaints High BP while at work today. Came in for evaluation. Reactive Yes RN Meghan RNC Date 11/08/24 Reactive Yes RN Alea RN Date 11/08/24 OB NST charge Yes Complete NST Note Yes via Write Note The provider's electronic signature indicates the NST is reactive/appropriate for gestational age. *Note to provider: If an addendum is required, open the patient's chart and click on the note under the Nurse/Allied Health tab.
== END 2024-11-08 17:48 | disposition home or self-care (01) ==
LOC: OB OUT 14:53 → OB 14:54
PROVIDERS: PCP Family Medicine; Visit Provider Family Medicine
DX: O26.893 Other specified pregnancy related conditions, third trimester (principal); R03.0 Elevated blood-pressure reading, without diagnosis of hypertension; Z3A.35 35 weeks gestation of pregnancy
CPT/HCPCS: 36415; 59025; 82565; 82570; 84156; 84450; 84460; 84520; 85027; G0463; A9270

== ENCOUNTER 2024-11-08 21:22 | Outpatient (CLI) | payer BC, SELFPAY ==
[2024-11-08 21:38] VITALS: BP 135/74; PULSE 96
[2024-11-08 21:58] VITALS: BP 139/75; PULSE 96
[2024-11-08 22:18] VITALS: BP 138/79; PULSE 93
[2024-11-08] MEDS: ACETAMINOPHEN 500 MG TABLET 1000 MG PO (22:30)
[2024-11-08 22:38] VITALS: BP 131/87; PULSE 89
--- NOTE | 2024-11-08 22:46 | PC.OBNST ---
NST Note NST Note Start: 11/08/24 21:32 Freq: ONCE Status: Active Protocol: Document 11/08/24 22:41 [facility] (Rec: 11/08/24 22:45 [facility] [id number]) NST Note 2 Para (# of births) 1 EDC 12/11/24 Gestational Age In 35 Weeks & 2 Days Weeks & Days High Risk Factors High Blood Pressure - Gestational Patient Presented Headache with Complaint(s) of Reactive Yes Appropriate for Yes Gestational Age RN Alea RN Date 11/08/24 Reactive Yes Appropriate for Yes Gestational Age RN Travon RN Date 11/08/24 OB NST charge Yes Complete NST Note Yes via Write Note The provider's electronic signature indicates the NST is reactive/appropriate for gestational age. *Note to provider: If an addendum is required, open the patient's chart and click on the note under the Nurse/Allied Health tab.
== END 2024-11-08 22:50 | disposition home or self-care (01) ==
LOC: OB OUT 21:22 → OB 21:23
PROVIDERS: PCP Family Medicine; Visit Provider Family Medicine
DX: O13.3 Gestational [pregnancy-induced] hypertension without significant proteinuria, third trimester (principal); O26.893 Other specified pregnancy related conditions, third trimester; R51.9 Headache, unspecified; Z3A.35 35 weeks gestation of pregnancy; R03.0 Elevated blood-pressure reading, without diagnosis of hypertension
CPT/HCPCS: 59025; G0463; A9270

== ENCOUNTER 2024-11-22 05:37 | Inpatient (IN) | payer BC, SELFPAY ==
[2024-11-22] VITALS (23 sets, daily range): BP systolic 124–139; BP diastolic 69–88; PULSE 75–96; RESP 16–18; TEMP 36.7–37.2; O2SAT 93–100; BMI 43.9
[2024-11-22 06:11] LABS: Hematocrit* 33.4 % (33.0-51.0); Hemoglobin* 10.9 gm/dL (12.0-16.0); Immature Granulocytes Pct Auto 1.9 %; Mean Corpuscular HGB Conc 33 gm/dL (32-36); Mean Corpuscular Hemoglobin 27 pg (26-34); Mean Corpuscular Volume 84 fL (80-100); RDW Coefficient of Variation % 14.3 % (11.5-15.5); Red Blood Count* 3.99 m/uL (4.00-5.20); White Blood Count* 11.84 K/uL (4.50-11.00)
[2024-11-22 06:12] LABS: Immature Granulocytes Abs Auto 0.20 K/uL (0.00-0.30); Lymphocytes Absolute Auto 2.30 K/uL (0.90-2.90); Slide Review Reflex No
[2024-11-22] MEDS: LACTATED RINGERS 1000 ML 1,000 ML 999 ML IV (06:29)
--- NOTE | 2024-11-22 07:09 | W.PM.LDBA ---
Subjective History of Present Illness Narrative: Patient is being admitted to Labor and Delivery for repeat delivery. She is a 29 year old at 37 2/7 weeks gestation. Her full history and physical was dictated by on 11/21/24. Please see this for details. Patient had experienced mild range elevated blood pressure at around 35 weeks but had not met criteria for GHTN. Patient was found with elevated blood pressure again yesterday meeting criteria for GHTN and recommendation was given to proceed with delivery since she was already 37 weeks. Patient is on anticoagulation due to history of PE. Last dose of Lovenox was yesterday 11/21/24 at 7am. Recommendation was given to hold anticoagulation for 24 hours prior to surgery. This morning patient states to be doing well no CLINICAL ASSOCIATE irritability symptoms. Blood pressures some mild range elevated, not on severity range. Labs collected so far show hemoglobin of 10.9mg/dL and normal platelets. Comments: OB problem list: 1. History of emergent delivery under general anesthesia due to non reassuring heart rate. Desires repeat delivery-consult completed with OB 09/14/24 Scheduling request sent- 12/02/24 2. History of PE, on Lovenox 120mg daily FU by radiocommunications technician and anti Xa levels monitored Should stop 24 hours prior to scheduled surgery or with signs of labor, plan to restart 12 hours after surgery. SCDs should also be utilized. 3. Factor V Leiden mutation carrier, was on prophylactic anticoagulation with her first 4. History of GHTN and IOL at 37 weeks 5. 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 History of abnormal pap smears, LEEP 2022 7. Anxiety managed currently with Lexapro 10mg daily OB - Problem Based A/P Additional Plan (1) Gestational hypertension: Problem details: Patient has likely gestational hypertension. Monitored for >2 hours. Fortunately, BP is trending down. However, has had >140/90, but not >4 hours apart. Status: Acute (2) History of pulmonary embolism: Problem details: Dx'd 3 weeks pp after her first delivery, on lovenox Status: Acute (3) Heterozygous factor V Leiden mutation: Status: Chronic (4) History of delivery: Status: Acute Plan Proceed with repeat delivery. Informed consent reviewed with patient discussed risks such as bleeding and needing a blood transfusion, infection, damage to nearby organs, blood clots. Type and screen has been collected. Will add complete set of preE labs. Will continue close monitoring of BPs. Plan to restart Lovenox 12 hours after surgery and SCDs should remain in place as much as possible. Patient in agreement with plan. OB Exam Physical Exam Vital signs: Temp Pulse Resp BP Pulse Ox 98.4 F 88 18 124/84 99 11/22/24 05:54 11/22/24 05:52 11/22/24 06:21 11/22/24 05:52 11/22/24 06:01 Detailed Labor and Delivery Exam Patient Gravid: yes Fetus (Single) Heart Rate Baseline: 120 Monitor Accelerations: Present Monitor Decelerations: None Alf Variability: Moderate (6-25)
[2024-11-22] MEDS: LACTATED RINGERS 1000 ML 1,000 ML 125 ML IV ×2 (07:33→08:05)
[2024-11-22 07:34] LABS: Alanine Aminotransferase* 11 U/L (4-35); Aspartate Amino Transferase* 19 U/L (12-35); Blood Urea Nitrogen* 2 mg/dL (5-24); Creatinine* 0.5 mg/dL (0.5-1.5); Est. Creatinine Clearance* 173.50; Estimated Glomerular Filt Rate 130 ml/min
--- NOTE | 2024-11-22 07:34 | P.ANES_ITS ---
Anesthesia Charges Start Date/Time Anesthesia Start Date: 11/22/24 Anesthesia Start Time: 07:20 Stop Date/Time Anesthesia Stop Date: 11/22/24 Anesthesia Stop Time: 09:43 Coding CPT Codes CPT Codes: ANESTH CS DELIVERY - 92199 ([id number]) P3 - PATIENT W/SEVERE SYS DISEASE, QK - CITY CONTROLLER 2-4 CNCRNT ANES PROC, QX - INSPECTOR ELECTROMECHANICAL SVC W/ MD MED DIRECTION
--- NOTE | 2024-11-22 07:34 | W.ANESCHARGE ---
Anesthesia Charges Start Date/Time Anesthesia Start Date: 11/22/24 Anesthesia Start Time: 07:20 Stop Date/Time Anesthesia Stop Date: 11/22/24 Anesthesia Stop Time: 09:43 Coding CPT Codes CPT Codes: ANESTH CS DELIVERY - 47579 ([id number]) P3 - PATIENT W/SEVERE SYS DISEASE, QK - FILM MOUNTER 2-4 CNCRNT ANES PROC, QX - BORING AND FILLING MACHINE OPERATOR SVC W/ MD MED DIRECTION
--- NOTE | 2024-11-22 07:38 | W.PM.NB ---
Nerve Block Nerve Block Time Seen by Provider: 09:23 Date Seen: 11/22/24 Type of block requested by surgeon for post-operative analgesia: TAP Side: bilateral Time out performed: Yes Verification of patient name: Yes Verification of date of : Yes Site marking: site marked Name of person performing procedure: Arturo Felder Continuous monitoring Was continuous monitoring of O2 sat, B/P, cardiac/vascular sonographer, recorded every 15 minutes?: Yes Procedure Checklist: sterile prep, needles and gloves Ultrasound guided. Images saved: Yes Medications given in 5ml increments after negative aspiration: Marcaine %: 0.25 mL: 30 Needle gauge: 20 and Exparel mL: 10 Needle gauge: 20 Patient tolerated procedure well: Yes Additional comments: Injected in 5ml increments after negative aspiration Block Charges Block Charge (with Pro Fee): TAP Bilateral Use of Ultrasound Machine for Block: Yes- US Guidance/pain block
--- NOTE | 2024-11-22 08:11 | P.ANES_ITS ---
Anesthesia Charges Start Date/Time Anesthesia Start Date: 11/22/24 Anesthesia Start Time: 07:20 Stop Date/Time Anesthesia Stop Date: 11/22/24 Anesthesia Stop Time: 09:43 Coding CPT Codes CPT Codes: ANESTH CS DELIVERY - 70462 ([id number]) P3 - PATIENT W/SEVERE SYS DISEASE, QK - SET RIDER 2-4 CNCRNT ANES PROC, QX - BOWLING OR SKATING FRONT DESK CLERK SVC W/ MD MED DIRECTION
--- NOTE | 2024-11-22 08:11 | W.ANESCHARGE ---
Anesthesia Charges Start Date/Time Anesthesia Start Date: 11/22/24 Anesthesia Start Time: 07:20 Stop Date/Time Anesthesia Stop Date: 11/22/24 Anesthesia Stop Time: 09:43 Coding CPT Codes CPT Codes: ANESTH CS DELIVERY - 45285 ([id number]) P3 - PATIENT W/SEVERE SYS DISEASE, QK - SECURITY AGENT 2-4 CNCRNT ANES PROC, QX - DYNAMO REPAIRER SVC W/ MD MED DIRECTION
--- NOTE | 2024-11-22 09:32 | P.OBPRC_ITS ---
OB Delivery Proc Additional Procedures Tubal Ligation at the time of : No Other: No Procedure Date of procedure: 11/22/24 Pre-op diagnosis: IUP at 37 2/7 weeks Previous section x1, desiring repeat. Gestational hypertension. History of pulmonary embolism, Factor V heterozygous on therapeutic Lovenox. Post-op diagnosis: same Procedure Done: only Will [facility] bill your pro fee for this procedure?: Yes Blood Loss Measurement Type: QBL (1209mL) Bakri Used: No IV fluids (mL): 1,600 Urine Output (mL): 100 Urine Output Comment: Clear at end of procedure Surgeon: Kelle Martino MD Anesthesia Type: Spinal Findings: FINDINGS: Live-born male infant, vertex presentation, Apgars 8 and 9 at 1 and 5 minutes respectively. weight: 3630g. Normal appearing uterus, tubes, and ovaries. Dense adhesions between fascia, rectus muscles, omentum, anterior peritoneum. Pannus skin with induration, old hematoma, bruising at sites of Lovenox injection. Procedure Name: Repeat low transverse section, lysis of adhesions. Procedure Description: PROCEDURE: After obtaining informed consent, the patient was taken to the operating room where spinal anesthesia was obtained and found to be adequate. She was prepared and draped in the normal sterile fashion in the dorsal supine position with a leftward tilt. A Pfannenstiel skin incision was made with a scalpel along the line of the patient's previous Pfannenstiel scar. This incision was carried down to the underlying layer of fascia with the scalpel and Bovie. The fascia was incised in the midline and the incision extended late rally. The superior aspect of the fascial incision was grasped with Jozef clamps, elevated and the underlying rectus muscles dissected off sharply and with electrocautery. This dissection took an increased amount of time given the dense adhesions. The rectus muscles were in the midline slightly as omentum was identified adhered to anterior peritoneum. Omentum was identified to be attached to the anterior peritoneum over the lower uterine segment, a window was opened, utilizing 2 large Sulma clamps and the omentum was opened with cautery and the ends were ligated utilizing Vicryl 0, hemostasis secured. This allowed mobilization of the omentum and placement of Axel retractor. The Axel O retractor was then placed into the incision. The lower uterine segment was then incised in a transverse fashion with the scalpel. Upon entry into the uterus, clear amniotic fluid was noted. The uterine incision was extended cephalo caudally with blunt finger fractionation. The 's head was delivered atraumatically, followed by the remainder of the 's body. The nose and mouth were suctioned with the bulb suction. The cord was doubly clamped and cut, after 30 seconds of delayed cord clamping and the was handed off the field for evaluation. The placenta was delivered spontaneously with umbilical cord traction and fundal massage. The uterus was cleared of all clots and debris. The uterine incision was reapproximated in a running locking fashion with a 0 Vicryl suture. A 2nd layer of the same suture was used to imbricate in horizontal fashion. Small bleeding serosal vessels had to be coagulated with electrocautery, Chromic 2-0 figure of eight and Roderick. Hemostasis secured. The gutters were inspected and cleared of blood clots. All instruments and retractors were removed. The anterior peritoneum was reapproximated in a running fashion with a 3-0 Vicryl suture. The subfascial tissues were carefully inspected and hemostasis assured, Roderick placed due to small oozing vessels, this allowed further hemostasis to be secured. The fascia was reapproximated in a running fashion with a looped 0 PDS suture. The subcutaneous tissues were copiously irrigated. Hemostasis was assured. The subcutaneous fat layer was reapproximated with 3 layers of continuous 3-0 PDS suture. The skin was closed in a subcuticular fashion with 4-0 Monocryl. Silver dressing applied and will be left for 7 days. The patient tolerated the procedure well. Sponge, lap, needle, and instrument counts were reported as correct x2. The patient was taken to the recovery room, awake, and in stable condition. She did receive 3 grams of IV Ancef preoperatively. Complications: hemorrhage by QBL due to history of anticoagulation. Pathology: specimen obtained, sent to pathology (Placenta due to GHTN) Surgery Debrief Performed: Yes Condition: stable Disposition: floor
[2024-11-22] MEDS: ACETAMINOPHEN 500 MG TABLET 1000 MG PO ×3 (11:30→23:28)
[2024-11-22] MEDS: SODIUM CHLORIDE 0.9 % (FLUSH) 10 ML SYRINGE IVF (15:01)
[2024-11-22] MEDS: ENOXAPARIN 120 MG/0.8 ML INJ SUBCUT (21:17)
[2024-11-23] VITALS: BP 140/83; PULSE 94; RESP 18; TEMP 36.9; O2SAT 98
[2024-11-23 03:39] VITALS: BP 138/81; PULSE 99; RESP 18; TEMP 36.8; O2SAT 98
[2024-11-23] MEDS: ONDANSETRON ODT 4 MG TAB PO (03:45)
[2024-11-23] MEDS: ACETAMINOPHEN 500 MG TABLET 1000 MG PO ×4 (06:41→23:48)
[2024-11-23 06:53] LABS: Hemoglobin* 10.0 gm/dL (12.0-16.0)
--- NOTE | 2024-11-23 07:41 | PM.OBPNVD1 ---
OB - PN:Subj Subjective Date Seen: 11/23/24 Narrative: Silva is a 29 y.o. G 2 P 2 now who was admitted to L & D for repeat section. ?She had a section that was uncomplicated. The patient feels well. ?The pain is well controlled with current medications. ?She has no new complaints. ?She is breast feeding and reports things are going well. she is also supplementing with formula as didn't go that well with her first. the patient has done well.? Vitals have been stable.? She has remained afebrile.? Has a good appetite, is tolerating a general diet. ?She is voiding without difficulty.? She is passing gas and has not had a bowel movement.? She is ambulating and denies any dizziness.? Has small amount of rubra lochia. She is planning for discharge for tomorrow if things continue to go well with her and baby. Problems: none OB - PN: Obj Exam Physical Exam: Vital signs: Temp Pulse Resp BP Pulse Ox O2 Del Method 98.3 F 99 18 138/81 98 Room Air 11/23/24 03:39 11/23/24 03:39 11/23/24 03:39 11/23/24 03:39 11/23/24 03:39 11/23/24 03:39 Routine HEENT Exam: Comments: GENERAL APPEARANCE:? normal affect, alert, no distress MOOD:? appropriate CHEST:? clear to auscultation HEART:? regular rate and rhythm ABDOMEN:? soft, non-tender the uterine fundus is -1 below Umbilicus, Midline and is appropriate for the stage of recovery. EXTREMITIES:? normal and +1 nonpitting BLE edema Incision: Healing well, no surrounding erythema, abnormal induration or discharge, dressing in place OB - PN: Obj Data Labs Labs: Laboratory Results - last 24 hr 11/22/24 11/23/24 06:05 06:39 Hgb 10.0 L BUN 2 L Creatinine 0.5 Estimated Creat Clear 173.50 Estimated GFR 130 AST 19 ALT 11 OB - PN: A/P Delivery Assessment and Plan (1) Gestational hypertension: Problem details: Patient has likely gestational hypertension. Monitored for >2 hours. Fortunately, BP is trending down. However, has had >140/90, but not >4 hours apart. Status: Acute (2) History of pulmonary embolism: Problem details: Dx'd 3 weeks pp after her first delivery, on lovenox Status: Acute (3) Heterozygous factor V Leiden mutation: Status: Chronic (4) History of delivery: Status: Acute (5) delivery delivered: Status: Acute (6) Lactating mother: Status: Acute Plan day: 1 Plan: routine care Comments: Discharge tomorrow if mom and baby doing well. , may see if needed?
[2024-11-23 08:21] VITALS: BP 132/85; PULSE 98; RESP 18; O2SAT 97
[2024-11-23] MEDS: FERROUS SULFATE 325 MG TABLET PO (08:38)
[2024-11-23] MEDS: DOCUSATE SODIUM 100 MG CAPSULE PO (08:38)
[2024-11-23] MEDS: ENOXAPARIN 120 MG/0.8 ML INJ SUBCUT ×2 (08:39→21:04)
[2024-11-23 13:54] VITALS: BP 131/81; PULSE 93; RESP 18; TEMP 36.9; O2SAT 98
[2024-11-23 20:06] VITALS: BP 126/72; PULSE 99; RESP 18; TEMP 36.9; O2SAT 97
[2024-11-23] MEDS: IBUPROFEN 600 MG TABLET PO (20:31)
[2024-11-24] VITALS: BP 131/72; PULSE 105; RESP 16; TEMP 36.9; O2SAT 97
[2024-11-24] MEDS: IBUPROFEN 600 MG TABLET PO ×2 (02:38→08:37)
[2024-11-24 04:30] VITALS: BP 129/83; PULSE 93; RESP 20; O2SAT 99
[2024-11-24] MEDS: ACETAMINOPHEN 500 MG TABLET 1000 MG PO (06:42)
--- NOTE | 2024-11-24 08:08 | P.DS_ITS ---
DS: Providers Provider Time Seen by Provider: 08:15 Date Seen: 11/24/24 Date of admission: 11/22/24 05:37 Primary care physician: Tomasa Gallegos MD Admitting Clinician: Sailaja Martino MD Attending Physician on discharge: Amber Mullen CNM Date of Discharge: 11/24/24 DS: Diagnosis Discharge Diagnosis (1) delivery delivered: Status: Acute (2) Gestational hypertension: Status: Acute Problem details: Patient has likely gestational hypertension. Monitored for >2 hours. Fortunately, BP is trending down. However, has had >140/90, but not >4 hours apart. (3) Lactating mother: Status: Acute (4) History of pulmonary embolism: Status: Acute Problem details: Dx'd 3 weeks pp after her first delivery, on lovenox (5) Anemia associated with acute blood loss: Status: Acute (6) Heterozygous factor V Leiden mutation: Status: Chronic (7) Anxiety: Status: Chronic (8) History of pre-eclampsia: Status: Acute Exam Narrative: Exam Narrative: Constitutional: no apparent distress Respiratory: no labored breathing, lungs clear to auscultation Cardiovascular: regular heart rate and rhythm, no murmurs heard Abdomen: soft, tender. Low transverse incision covered with CDI surgical dressing. No shaddowing. Uterine fundus is firm and 2cm below umbi licus. Appropriate for this stage of healing. Extremities: full sensation, +1 edema in bilateral lower extremities Mood: stable, appropriate Const: Vital Signs, click to edit/add: Vital Signs - 24 hr 11/23/24 08:21 11/23/24 13:54 11/23/24 20:06 Temperature 98.4 F 98.4 F Pulse Rate [Blood Pressure Cuff] 98 93 99 Respiratory Rate 18 18 18 Blood Pressure [Ri ght Arm] 132/85 131/81 126/72 Pulse Oximetry 97 98 97 Oxygen Delivery Me thod Room Air Room Air Room Air 11/24/24 00:00 11/24/24 04:30 Temperature 98.4 F Pulse Rate [Blood Pressure Cuff] 105 H 93 Respiratory Rate 16 20 Blood Pressure [Ri ght Arm] 131/72 129/83 Pulse Oximetry 97 99 Oxygen Delivery Me thod Room Air Room Air OB - DS: Summary Hospital Course Hospital Course: Silva is a 29 y.o. G 2 now P 2 who was admitted to L & D for repeat section at 37 weeks 2 days for gestational hypertension.?History of pulmonary embolism, using Lovenox which was stopped for 24 hours prior to . She had a section that was uncomplicated. The patient feels well.? The pain is well controlled with Tylenol and Ibuprofen.?She is breast feeding and bottle feeding. Pumping and supplementing with formula. Reports nipples are sore, but intact, from baby not getting deep latch. the patient has done well.? Vitals have been stable, except for one mild range elevated blood pressure.? She has remained afebrile.? Has a good appetite, is tolerating a general diet.? She is voiding without difficulty.? She is passing gas and has had a bowel movement.? She is ambulating and denies any dizziness.? Has scant amount of rubra lochia. She is planning copper IUD for prevention.? ?? Problems: none ?? plan:? Discharge home with baby.? Follow up in 4 days and 6 weeks with [facility] To continue Lovenox until MD appt on Thursday. They are planning to likely switch to Coumadin at that time. , may see if needed? Hgb 10.0. Continue iron supplement ordered orally every other day GHTN diagnosed by elevated BP greater than 4 hours apart? Labs WNL or stable with trending? Use home blood pressure cuff to check blood pressure twice daily and report >140/90??so antihypertensives can be started as indicated Call for signs/symptoms of preeclampsia? Continue stool softener 1-2x day until bowel movements are regular and easy, then taper off Use tylenol and ibuprofen as needed for pain, declined oxycodone for break through pain. Abdominal binder for support Ice or heat to incision as desired Continue Escitalopram 10mg daily. F/u if depression or anxiety worsens Power Oreilly APRN, CNM, was present for visit and have reviewed and agree with documentation by the Certified Nurse Midwifery Student.? Peripartum Data Infant delivery method: Repeat Section Laceration description: None Episiotomy description: None Procedures: Procedures Operation Date: 11/22/24 07:15 Actual Procedure Side Surgeon p Repeat Section Sailaja Martino MD complications: none [place] Infant Gender: Male Infant Discharge Plan: Home Status at Discharge Functional status at discharge: independent ambulation Overall status at discharge: patient is progressing back to baseline Time Spent with Patient Time attestation: Total time spent providing and/or coordinating discharge services: Time spent: Less than 30 minutes Discharge Plan Discharge Disposition: Home, Self-Care Date of Admission: 11/22/24 05:37 Attending Provider on Discharge: Armida Mullen Primary Care Provider: Tomasa Gallegos Condition: Stable Anticipated Discharge Date/Time: 11/24/24 12:00 Discharge Medications: New ibuprofen 600 mg Tablet 600 mg PO Q6H PRN (Reason: Pain) Qty: 60 0RF Continued enoxaparin 120 mg/0.8 mL syringe 120 mg subcut DAILY ferrous sulfate 325 mg (65 mg iron) tablet 325 mg PO QDAY escitalopram oxalate [Lexapro] 10 mg tablet 10 mg PO DAILY docosahexaenoic acid [ DHA] 1 cap PO DAILY docusate sodium [Colace] 100 mg capsule 100 mg PO DAILY Discontinued famotidine 10 mg tablet 10 mg PO QDAY aspirin [Carlton Low Dose Aspirin] 81 mg tablet,delayed release (DR/EC) 162 mg PO DAILY Discharge Orders: Discharge Order (Routine); Ordered 11/24/24 Ordered By: Armida Mullen Consulting provider completed their portion of the discharge: Yes Patient Education: Bupivacaine Liposome (By injection), OB Over the Counter Medication Information, OB /Bottle Feeding, OB /Breast Feeding Additional Instructions: Discharge instructions were reviewed with the patient including signs and symptoms of infection and home going medications Lifting Restrictions: 20 pounds for 6 weeks Do not submerge incision under water X 2 weeks? Nothing vaginally for 6 weeks: no tampons or intercourse Do not drive while taking narcotic pain medication(s) Off Work or School for 8 weeks [facility] Thursday11/28/2024 * Call with BP greater than or equal to 160/110 * Severe headache that doesn't improve after taking medications * Changes in vision, including temporary loss of vision, blurred vision, and/or light sensitivity 4 day visit with OB: incision check, with [facility] provider 6-week visit for an annual exam with your Family Medicine Providers at [facility]. consultation services are available to all mothers and babies for the first year after delivery.? To make an appointment, please call [phone]. Activity Level: Light activity Discharge Diet: Regular Follow Up Appointments: Tomasa Gallegos MD [Primary Care Provider, Family Practice] Forms: Patient Belongings, MyHealth Info Instructions
[2024-11-24] MEDS: ENOXAPARIN 120 MG/0.8 ML INJ SUBCUT (08:37)
[2024-11-24] MEDS: FERROUS SULFATE 325 MG TABLET PO (08:38)
[2024-11-24] MEDS: DOCUSATE SODIUM 100 MG CAPSULE PO (08:38)
[2024-11-24 08:44] VITALS: BP 129/82; PULSE 90; RESP 20; TEMP 36.8; O2SAT 97
== END 2024-11-24 11:12 | disposition home or self-care (01) | DRG 540 ==
PROVIDERS: Obstetrics & Gynecology; Admitting Provider Obstetrics & Gynecology; PCP Family Medicine; Visit Provider Obstetrics & Gynecology
PROC: 10D00Z1 Extraction of Products of Conception, Low, Open Approach (ICD-10-PCS; CPT 59514; principal; 2024-11-22 07:15)
DX: O34.211 Maternal care for low transverse scar from previous cesarean delivery (principal); O13.4 Gestational [pregnancy-induced] hypertension without significant proteinuria, complicating childbirth; O99.62 Diseases of the digestive system complicating childbirth; K66.0 Peritoneal adhesions (postprocedural) (postinfection); G89.18 Other acute postprocedural pain; O72.1 Other immediate postpartum hemorrhage; O90.81 Anemia of the puerperium; D62 Acute posthemorrhagic anemia; O99.12 Other diseases of the blood and blood-forming organs and certain disorders involving the immune mechanism complicating childbirth; D68.51 Activated protein C resistance; Z86.711 Personal history of pulmonary embolism; Z79.01 Long term (current) use of anticoagulants; O99.344 Other mental disorders complicating childbirth; F41.9 Anxiety disorder, unspecified; Z3A.37 37 weeks gestation of pregnancy; Z37.0 Single live birth
CPT/HCPCS: 01961; 36415; 64488; 76942; 82565; 84450; 84460; 84520; 85018; 85025; 86592; 86850; 86900; 86901; A4314; A9270; J0665; J0666; J0690; J1100; J1650; J1885; J2371; J2405; J2590; J3010; J7120

== ENCOUNTER 2024-11-30 09:16 | Outpatient (CLI) | payer BC, SELFPAY ==
--- NOTE | 2024-11-30 09:46 | W.PM.LAC.MC ---
Consult Note - Mom Date of Visit Date of visit: 11/30/24 Reason for consultation: Assistance Needed and Low Milk Supply Visit Code: Visit Patient's Information Phone number: [phone] Para: 2 Allergies No Known Drug Allergies Allergy (Verified 11/22/24 06:14) Mother's medical history: Difficulty conceiving, Post hemorrhage (1290 QBL) and Other (minimal breast changes during , irregular menstural cycle) Mother's Medical History: Medical History (Updated 11/24/24 @ 08:36 by Kortney Doll) Pre-eclampsia affecting puerperium ?O14.95 - Unspecified pre-eclampsia, complicating the puerperium (ICD-10) History of pulmonary embolism ?Z86.711 - Personal history of pulmonary embolism (ICD-10) History of abnormal cervical Pap smear (12/28/20) ?Z87.42 - Personal history of other diseases of the female genital tract (ICD-10) Heterozygous factor V Leiden mutation ?D68.51 - Activated protein C resistance (ICD-10) Anxiety ?F41.9 - Anxiety disorder, unspecified (ICD-10) 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 - Herpesviral infection of urogenital system, unspecified (ICD-10) Work Plans: will return to work Delivery Information Delivery type: Repeat Section Gestational Age: 372 Gestational Weight For Age: AGA Weight: 3.63 kg Baby's Information Baby's Age at Visit: 8 days Baby's Provider or Clinic: [facility] Jaundice: Yes Past Experience Past Experience: Yes (for 6 days, milk didn't come in and stopped trying) Current Frequency of Day Feedings: every 2-3 hrs, needs waking for most feedings Both Breasts: Yes (when he'll nurse, he's pretty sleepy) Suck: ok Latch: comfortable Length of Time: 10 min ea side if he BFs Pumping Pumping: Yes Quantity Pumped: 2 oz total Supplementing EBM Supplement: Yes (taking 2-3oz/feeding) Formula Supplement: Yes Baby Elimination Number of Wet Diapers a Day: ea feeding Number of BM a Day: almost ea feeding now, yellow and soft Breast/Nipple Condition Breast Information: Breasts are symmetrical with rounded lower quadrants, intramammary distance is slightly more than 1.5 inches. No erythema. Nipples are supple, everted prior to feeding. Breast Shape: Round Engorgement: No Maternal Nipple Condition - Left: Common Nipple Maternal Nipple Condition - Right: Common Nipple Sore Nipples: No Baby Assessment Skin: Yellow (to abdomen; bili yeterday was 17 and dropping) Tongue/frenulum: Normal/elastic Palate: Average Lips: Relaxed and Symmetrical Jaw Alignment: Symmetrical Mucosa: [place], moist Onsite Observation Pre-Feed weight: 3.402 kg Position: Football Attachment/latch-on achieved: Not achieved (babe sleepy and fed less than 2 hrs ago) Assessments/Interventions Assessments/Interventions: Met with mom, her and their 8 day old baby born at 37+2 weeks gestation; he has been jaundiced and his levels are slowly coming down. Mom reports she was able to BF him 2x yesterday but she is mostly pumping and bottling. She has a Spectra pump. She will get 1 oz ea breast when pumping; she reviewed her use of the pump and she is using the settings correctly and has the correct flange size. She tried power pumping morn with no increase in output. She had trouble with her supply when she nursed her older child and she's concerned that may be the issue now. She was never able to latch him well and she tried u for 6 days and then stopped since she wasn't getting very much. Risk factors for milk supply compromise include: difficulty conceiving, PPH >1000ml, irregular menstrual cycle, and very minimal breast changes during . These are reviewed with Silva and her to evaluate expectations. She attempts to put Jenkins to the breast; he is less than interested in feeding and parents report he fed less than 2 hours ago so likely won't eat. Reviewed her risk factors for low milk supply; discussed breast storage volume and her body may be such that she stores 2 oz at a time and then won't make more until that is removed. Discussed putting baby to the breast as many feedings/day as possible when he is awake; pump when he's not. Since she has noted she gets the same amount of milk if she pumps every 2 or 3 hrs, suggested she pump every 2 hrs during the day for maximum output. Discussed using her wearable pump (she gets the same amount of milk from that as the Spectra) for more freedom with pumping. Discussed continuuing with this routine for 2-3 weeks total and then reevaluate if she is content with the amount of milk she is making or not. Offer first when he will nurse; supplement with EBM or formula after given he is sometimes taking 3 oz/feeding Pump after feedings as able, but at least every 3 hrs if he's not going to the breast Discussed galactogogues; decline use due to medications Silva is taking. Discussed the importance of hydration and calories for her body to make milk. Education provided: Early feeding cues to maximize timing of latching, Asymmetric latch technique for wide/deep latch to increase milk, Transfer for baby and increase comfort for mom, Supply/demand nature of milk supply, Alternative feeding methods (SNS, cup, finger feeding, bottling) and Pumping for milk management Follow-Up Suggested follow up: Appointment as needed Time Spent Time spent with patient (min): 60 Meds Home Medications and Allergies Home Medications ?Medication ?Instructions ?Recorded ?Confirmed ?Type docusate sodium 100 mg capsule 100 mg PO DAILY 03/12/22 11/22/24 History (Colace) escitalopram oxalate 10 mg tablet 10 mg PO DAILY 05/19/23 11/22/24 History (Lexapro) enoxaparin 120 mg/0.8 mL 120 mg subcut DAILY 02/19/24 11/22/24 History subcutaneous syringe docosahexaenoic acid 1 cap PO DAILY 08/07/24 11/22/24 History ferrous sulfate 325 mg (65 mg 325 mg PO QDAY 09/14/24 11/22/24 History iron) tablet ibuprofen 600 mg tablet 600 mg PO Q6H PRN Pain #60 tabs 11/24/24 Rx nifedipine 30 mg tablet,extended 30 mg PO QDAY #30 tabs 11/27/24 Rx release Allergies Allergy/AdvReac Type Severity Reaction Status Date / Time No Known Drug Allergies Allergy Verified 11/22/24 06:14
== END 2024-11-30 09:17 | disposition home or self-care (01) ==
LOC: OB LAC 09:17
PROVIDERS: PCP Family Medicine; Visit Provider Family Medicine
DX: Z39.1 Encounter for care and examination of lactating mother (principal)
CPT/HCPCS: G0463

== ENCOUNTER 2024-12-02 17:37 | Emergency (ER) | payer BC, SELFPAY ==
[2024-12-02] VITALS (8 sets, daily range): BP systolic 113–137; BP diastolic 69–89; PULSE 82–94; RESP 16–18; TEMP 36.6; O2SAT 98–99; BMI 40.0
--- OUTSIDE RECORDS SUMMARY | 2024-12-02 18:29 | XMS_ITS | Clinical Summary ---
Author Organization [employer] [facility] Address [facility] [place] [address] Care Team Providers Care Estimator Printing Name Role Phone Tomasa Gallegos MD Primary Care Provider Allergies No known active allergies Medications albuterol HFA (PRO-AIR; VENTOLIN; PROVENTIL) 90 mcg/actuation inhalerIndicat ions:Exercise- induced asthma (HC) Inhale 2 Puffs by mouth every 4 hours if needed for Shortness Of Breath or Wheezing. 1 Each 5 09/07/19 24 Active aspirin chewable 81 mg chewable tabletIndicati ons:Supervisio n of high risk in first trimester (HC) Chew 2 Tablets (162 mg) by mouth once daily. 05/31/19 25 Active clobetasol 0.05 % creamIndicatio ns:Subacute vaginitis Apply topically to affected area(s) two times daily. 30 g 08/18/19 25 Active escitalopram oxalate (LEXAPRO) 10 mg tabletIndicati ons:Anxiety TAKE 1 TABLET BY MOUTH EVERY DAY IN THE MORNING 90 Tablet 1 09/24/19 25 Active enoxaparin (LOVENOX) 120 mg/0.8 mL injectionIndic ations:Heteroz ygous factor V Leiden mutation (HC),Factor V Leiden mutation affecting (HC),History of pulmonary embolus (PE) INJECT 120 MG SUBCUTANEOUS EVERY 12 HOURS. 60 Each 2 11/08/19 25 Active enoxaparin 120 mg/0.8 mL injectionIndic ations:Heteroz ygous factor V Leiden mutation (HC),Factor V Leiden mutation affecting (HC),History of pulmonary embolus (PE) Inject 120 mg subcutaneous every 12 hours. 60 Each 3 06/15/19 25 025 Discontinued Active Problems Problem Noted Date Diagnosed Date Maternal morbid obesity in second trimester, ant epartum 07/25/2024 05/24/2024 Overview (11/16/2024): Estimated Date of Delivery: 12/11/24 Patient's last menstrual period was 02/16/2024. 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 Per hematology recommendations, is on 120 mg daily dosing. Hx preeclampsia, on 162 mg ASA daily. blood pressure well controlled in clinic and at home. Hx emergent , desires repeat, scheduled this , currently scheduled for 12/02/2024 GBS: Vaginal/Rectal OB Strep B PCR Date Value Ref Range Status 11/14/2024 Negative Final 28wk labs: GLUCOSE, GESTATIONAL SCREEN (50G)-140 CUTOFF Date Value Ref Range Status 09/07/2024 125 <140 mg/dL Final HEMOGLOBIN Date Value Ref Range Status 09/07/2024 10.7 (L) 11.7 - 15.5 g/dL Final TREPONEMA PALLIDUM Date Value Ref Range Status 09/07/2024 Non-Reactive Non-Reactive Final Last Tdap: 09/16/24 Last Flu vaccine: 2012 OB Labs: Needs HCV, HIV, GC/Chlam Type and screen with [facility]: 04/08/24: Apos, antibody screen negative TREPONEMA [...] and kick counts. Will need growth US [id number] just had growth US on infection [facility] Supervision of high-risk 01/02/2022 [facility] CONSULTATION ON 01/08/22 REASON FOR CONSULT: [...] episode. Yessica Rocha RN ....05/24/2024 12:29 PM [facility] Supervision of high-risk 5 Overview (08/24/2024): Silva Arana : 1995 REFERRING PROVIDER/CLINIC [facility] provider approves scheduling of recommended ultrasounds/testing: No MPP ULTRASOUND/TESTING PATIENT MPP CONSULT ON 05/30/24 MPP PRECONCEPTION CONSULT 11/07/22 Support person name: Lauri ULTRASOUND TYPE: 08/29/24: Growth and complete anatomy (25w1d) REASON FOR VISIT: BMI 39, Factor V, PP bilateral PE after last delivery NEXT VISIT ALERTS: Final MARY by LMP Date: Patient's last menstrual period was 02/16/2024. MARY: Early US: Date: 04/26/2024 GA: 7w 2d MARY: 12/11/24 PrePregnancy Weight: 271 lbs Height: 5ft 9in BMI: 39.32 PLANS & FUTURE APPOINTMENTS: ULTRASOUND/GROWTH PLAN: Follow up growth in 4-6 weeks to complete limited anatomy - Growth: Next 08/29/24 TESTING PLAN: weekly testing at 34w - Testing: Through DELIVERY PLAN: deliver at 39w - Scheduled delivery: - Preferred delivery location: [...] Thrombophilia work up 10/2020 Anxiety HSV CRM- 2/21 new patient eval, had a +b-HCG, records scanned in PREVIOUS ULTRASOUNDS: 08/29/24 (MPP Growth@25w1d) 07/25/24 (MPP L2@20w1d) EFW 400 gm, 90% 04/26/2024 GA: 7w 2d MARY: 12/11/24 ECHO: SPECIALISTS/CONSULTS: Coy Tena LV 2022? NV [...] 0.1 PERTINENT MEDS: Lovenox bASA Lexapro PROCEDURES: PLAN OF CARE: Per on 07/25/24: RECOMMENDATIONS: -Return to primary provider for continued care. -Deliver at 39 weeks. -Growth ultrasounds at 28 and 34 weeks due to BMI greater than 40. -Follow up growth in 4-6 weeks to complete limited anatomy. If normal the remainder of ultrasound surveillance can be accomplished locally for patient convenience. -Weekly surveillance starting at 34 weeks. -The patient was directed to schedule with OB 05/30 per Recommendations: ASA: 162 mg (81 [...] Targeted Level II ultrasound as planned with [facility] on 07/25/24. growth scans every 6 weeks until delivery. Third trimester testing from 32 weeks weekly with Biophysical Profile (BPP) And non-Stress Test (NST) until delivery. Planned Repeat : [...] 12/23/2021 Factor V Leiden mutation affecting Overview (09/07/2024): # Heterozygous factor V Leiden: # History of provoked pulmonary embolism, moderate to large burden no right heart strain - Resume Lovenox 120 mg once daily for now - Will check an heparin level trough level this Thursday, before she takes her Lovenox injection that a.m. - If her heparin level is between 0.4-0.6, we will continue this current dose of anticoagulation - If she were to develop a VTE, or PE, would then increase to 1 mg/kg twice every 12 hours - Will continue anticoagulation until planned at 37 weeks. - Resume Lovenox after per her [employer] providers for at least 6 weeks . - Transition to warfarin while , with INR checks as determined by the anticoagulation clinic, aiming for an INR between 2-3. - Switch to apixaban 2.5 mg twice daily for lifelong Anxiety 01/09/2021 Exercise-induced asthma 01/09/2021 Heterozygous factor V Leiden mutation 12/28/2020 Overview (10/01/2022): heterozygous YULIANA III (cervical intraepithelial neoplasia III) 06/16/2017 Overview (06/09/2024): 06/2017 LSIL 11/2018 ASCUS/HPV+ 11/2019 LSIL 12/2019 [place]: YULIANA I, ECC Benign 12/2020 LSIL/HPV+, HPV 16/18 negative 04/2022 HSIL/ HPV+, HPV 16/18 negative 05/2022 [place]: YULIANA 2-3 09/2022 [place]: YULIANA 2-3 01/2023 LSIL-H / HPV+, HPV 16/18 negative 03/2023 [place]: benign; ECC suggestive of YULIANA I 09/2023 LSIL-H / HPV+, HPV 16/18 negative 09/2023 [place]:suggestive of YULIANA I; ECC benign 05/2024 [place]: Benign. Pap: NIL/HPV+, 16/18 negative Provider plan: recheck a pap at your visit Disorder of nutrition 04/03/2010 Estimated Date of Delivery Comme nts Yes 12/11/2024 Based on Ultraso und Resolved Problems Problem Noted Date Diagnosed Date Resolved Date [facility] Encounter for Preconception Consultation 3 05/25/2024 Overview (11/04/2022): [facility] PRECONCEPTION Virtual CONSULTATION ON 11/07/22 Previous [facility] CONSULTATION ON 01/08/22 with CB- gHTN [...] Anxiety HSV REFERRING PHYSICIAN/PHONE/LAST UPDATE: Tomasa Gallegos [place] [phone] Primary MD approves scheduling of recommended ultrasounds/testing: [...] Obesity affecting in second trimester 01/08/2022 06/08/2023 [facility] Supervision of high-risk 01/02/2022 11/04/2022 Overview (01/07/2022): MPP CONSULTATION ON 01/08/22 REASON FOR CONSULT: Gestational hypertension TODAY'S APPOINTMENT: MD Consultation PRIMARY DIAGNOSIS: 26 y.o. Estimated Date of Delivery: 04/03/22 gHTN diagnosed at 25w-getting weekly labs and weekly BP checks Factor V, heterozygous COVID-19 @17w BMI 39 Anxiety HSV LAST GROWTH: 12/18/21 26w0d EFW 906 grams, percentile: 92 11/14/21 21w0d EFW 377 grams, percentile: 87 08/30/21 9w3d REFERRING PHYSICIAN/PHONE/LAST UPDATE[facility] [phone] Primary MD approves scheduling of recommended ultrasounds/testing: [...] and kick counts. Will need growth US [id number] just had growth US on 12/20/21 so will get repeat in 4 weeks scheduled and can do with BPP. MPP consult [facility] Recs below: Severity: 25% will have [...] Encounters Date Type Department Care Team Description 11/30/2024 Travel 11/28/2024 11:30 AM CDT Orders Only [facility] [address] [place], [place] Lab 11/28/2024 Orders Only [facility] [place] [address] Tomasa Gallegos MD Lab 11/28/2024 Travel 11/28/2024 Nurse/Clinic Staff Only [facility] [place] [address] [address] Tomasa Gallegos MD Blood Pressure 11/28/2024 Orders Only [facility] [address] Tomasa Gallegos MD Headache 11/23/2024 Travel 11/22/[address] [facility] Scanner 1 scan: (1-Ord) [place], , 11/22/2024 11/22/2024 Lab Requisition [facility] [phone] Sailaja Martino MD 11/21/2024 3:05 PM CDT OB Encounter [facility] [address] Tomasa Gallegos MD Care (37+1) 11/21/2024 1:45 PM CDT Ancillary Procedure [facility] [place] [address] [address] 11/21/2024 Travel 11/16/2024 Travel 11/14/2024 3:05 PM CDT OB Encounter [facility] [place] [address] Tomasa Gallegos MD Care (36 w 1d/) 11/14/2024 1:45 PM CDT Ancillary Procedure [facility] [place] [address] [address] 11/14/2024 Travel 11/10/2024 11:45 AM CDT OB Encounter [facility] [place] [address] [address] Tomasa Gallegos MD Care (35w 4d/Recheck BP) 11/09/2024 Travel 11/08/[address] [facility] Scanner 1 scan: (1-Ord) [place] MULTIPLE LABS, 11/08/2024 11/08/2024 Orders Only [facility] Scanner 1 scan: (1-Ord) [place] MUTLIPLE LABS, 11/08/2024 11/08/2024 Travel 11/07/2024 3:05 PM CDT OB Encounter [facility] [place] [address] [address] Tomasa Gallegos MD Care (35w 1d) 11/07/2024 1:45 PM CDT Ancillary Procedure [facility] [place] [address] [address] 11/07/2024 Travel 11/06/[address] [id number] Urmila Tena MD Refill Request (Enoxaparin) 11/02/2024 Travel 10/31/2024 3:05 PM CDT OB Encounter [facility] [place] [address] [address] Tomasa Gallegos MD Care (34w 1d/) 10/31/2024 1:45 PM CDT Ancillary Procedure [facility] [place] [address] [address] 10/31/2024 Travel 10/26/2024 Travel 10/24/2024 3:05 PM CDT OB Encounter [facility] [address] [place] [address] Tomasa Gallegos MD Care (33w 1d/) 10/24/2024 Travel 10/19/2024 4:05 PM CDT OB Encounter [facility] [address] [place] [address] [address] Tomasa Gallegos MD Care (32w 3d) 10/19/2024 Travel 10/18/2024 4:00 PM CDT Ancillary Procedure [facility] [address] [place] [address] [address] 10/18/2024 Travel 10/14/2024 Travel 10/13/2024 Travel 10/10/2024 Nurse Triage [facility] [address] [place] [address] [address] Tomasa Gallegos MD Problem (Low kick count) 10/08/2024 Orders Only [facility] Scanner 1 scan: (1-Ord) [facility], MULTIPLE LABS, 10/08/2024 2024 Orders Only [facility] Scanner 1 scan: (1-Ord) [place], MULTIPLE LAB TESTS, 2024 2024 Orders Only [facility] Scanner 1 scan: (1-Ord) [place], MULTIPLE LAB TESTS, 2024 10/03/2024 2:40 PM CDT OB Encounter [facility] [address] [place] [address] [address] Tomasa Gallegos MD Care (30w 1d/) 10/03/2024 Travel 09/28/2024 Travel 09/21/2024 Refill [facility] [address] [place] [address] [address] Tomasa Gallegos MD Refill Request (Escitalopram) 09/16/2024 8:50 AM CDT OB Encounter [facility] [address] [place] [address] [address] Tomasa Gallegos MD Care (27w 5d/) 09/16/2024 Travel 09/11/2024 Travel 09/07/2024 3:40 PM CDT OB Encounter [facility] [address] [place] [address] Tomasa Gallegos MD Care (26w 3d/Acid reflux) 09/07/2024 Travel 09/02/2024 Travel from Last 3 Months Immunizations Immunization Administration Dates Next Due AMB Influenza, IIV3 (Age >=3 years)(Flu Clinic Only) 12/27/2009,01/20/2008 DTaP 08/10/2000,04/19/1997 DTaP-HIB (TriHIBIT) 06/07/1996,01/28/1996,1995 Hepatitis A (Adult) 09/17/2015 Hepatitis B (Peds) 06/07/1996,01/28/1996, 996 Human Papilloma Virus Vaccine 06/27/2011, 012,12/23/2010 INFLUENZA, IIV3 PF (AGE >= 6 MO) 10/24/2024 Influenza Virus, Unspecified 11/29/2008 Influenza, IIV3 (Age 6-35 mos) 02/25/2012,2010 Influenza, IIV3 (Age >=3 years) 12/23/2010,12/27,01/20/2008 Influenza, IIV4 02/01/2014 MENINGOCOCCAL VACCINE 2 VIAL 2MO-55YO (MENVEO) 08/13/2012 MMR 08/10/2000,11/08/1996 RSV, Bivalent Vaccine Recons tituted (Abrysvo 120MCG/0.5mL) 10/24/2024 Rabavert 03/05/2023, 4,02/23/2023,02/20 Td (Age >=7 Years) 07/16/2018 Tdap 09/16/2024,01/21/2022,08/09/2007 Varicella Vaccine 08/09/2007,12/11/1998 Family History Medical History [...] Never Smokeless Tobacco: Never Tobacco Cessation:Counseling Given: No Alcohol Use Standard Drinks/Week Comments Not Currently 0 (1 standard drink = 0.6 oz [...] Master's degree (e.g., MA, MS, Faviola, MEd, DRAFTING INSTRUCTOR, ROSSY) 11/07/2022 Estimated Date of Delivery Comme nts Yes 12/11/2024 Based on Ultraso und Sex and Gender Information Value Date Recorded Sex Assigned at Not on file Legal Sex Female 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 Gender Identity Not on file Sexual Orientation Not on file 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 Not on file Not on file 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 See encounter summary. 5 17w1d Inpatient data not displayed here. See encounter summary. 5 20w1d Inpatient data not displayed here. See encounter summary. 5 20w1d Inpatient data not displayed here. See encounter summary. 5 25w1d Inpatient data not displayed here. See encounter summary. 5 25w1d Inpatient data not displayed here. See encounter summary. Notes Progress Notes - Orders Only - 11/28/2024 - GA:38w1d 11/28/2024 - 38w1d - Tomasa Gallegos MD Patient developed headaches over the weekend. Oil Analyst recommended ER visit, but patient declined, they recommended labs today to ensure no signs of preeclampsia. She is on nifedipine for blood pressure. Headaches comes adn goes, but fairly consistent. No abdominal pain, no vision changes. Labs ordered and blood pressure checked today. Tomasa Gallegos MD .................... 11/28/2024 11:03 AM Progress Notes - OB Encounte r - 11/21/2024 - GA:37w1d 11/21/2024 - 37w1d - Tomasa Gallegos MD SUBJECTIVE: Silva Arana is a 29 y.o. female at 37+1 weeks. Continues to have home blood pressure in the 140/90s. No worsening swelling. No headache, vision changes or RUQ pain. See visit comments. 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 Per hematology recommendations, is on 120 mg daily dosing. Last dose 7 AM Hx preeclampsia, on 162 mg ASA daily. blood pressure now with elevated readings on L&D and at home, second blood pressure >140/90 today in clinic. Discussed with continuum of care manager MD, recommend now that she has met criteria for gHTN. Given dose of lovenox this morning, will postpone until tomorrow morning and hold nighttime dose lovenox. Hx emergent , desires repeat, scheduled this , currently scheduled for 11/22 PLAN: Return to hospital in AM for scheduled . Tomasa Gallegos MD .................... 11/21/2024 3:17 PM Progress Notes - OB Encounte r - 11/14/2024 - GA:36w1d 11/14/2024 - 36w1d - Tomasa Gallegos MD Images from the original note were not included. [facility] Preoperative Consultation Silva Arana : 1995 Gender: female Date of Encounter: 11/14/2024 Silva Arana is a 29 y.o. female (1995) who presents for preop evaluation undergoing repeat LTCS for treatment of . Date of Surgery: 12/05/2024 Surgical Specialty: SWIMMING INSTRUCTOR Pam Michael MD Hospital/Surgical Facility: [facility] [place] Fax number: Surgery type: inpatient Primary Physician: Tomasa Gallegos History of Present Illness Silva Arana is a 29 y.o. at 36 +1 weeks here for routine oB visit as well as preop prior to repeat LTCS. Patient's has been complicated by factor V leiden with history of pp pulmonary embolism while on anticoagulation. She has consulted with hematology and is currently on lovenox and 162 mg ASA daily. She had gestational HTN with her last starting at 25 weeks. Although she continues to have home blood pressure readings occasionally in the low 140s/80- 90s, she has only had blood pressure readings documented that high once at the center. She is currently scheduled for a at 39 weeks, but if develops additional high blood pressure readings, delivery would likely be moved earlier. She is not having headaches, vision changes or RUQ pain. Swelling in lower extremities is a bit worse today than it has been. BPP 8/8 today. History of Present Illness Review of Systems A comprehensive review of systems was negative except for items noted in HPI. Patient Active Problem List Diagnosis Code Disorder of nutrition E63.9 YULIANA III (cervical intraepithelial neoplasia III) D06.9 Heterozygous factor V Leiden mutation (HC) D68.51 Anxiety F41.9 Exercise-induced asthma (HC) J45.990 Factor V Leiden mutation affecting (HC) O99.119, D68.51 Gestational hypertension (HC) O13.9 COVID-19 affecting in second trimester (HC) O98.512, U07.1 H/O emergency section Z98.891 History of gestational hypertension Z87.59 Acute pulmonary embolism without acute cor pulmonale (HC) I26.99 Mild intermittent asthma without complication (HC) J45.20 Anemia associated with acute blood loss D62 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 aspirin chewable 81 mg chewable tablet Chew 2 Tablets (162 mg) by mouth once daily. clobetasol 0.05 % cream Apply topically to affected area(s) two times daily. enoxaparin (LOVENOX) 120 mg/0.8 mL injection INJECT 120 MG SUBCUTANEOUS EVERY 12 HOURS. escitalopram oxalate (LEXAPRO) 10 mg tablet TAKE 1 TABLET BY MOUTH EVERY DAY IN THE MORNING No current facility-administered medications for this visit. Medications have been reviewed by me and are current to the best of my knowledge and ability. No Known Allergies Past Surgical History[1] Social History Tobacco Use Smoking status: Never Passive exposure: Never Smokeless tobacco: Never Vaping Use Vaping status: Never Used Substance Use Topics Alcohol use: Not Currently Comment: Rarely Drug use: No Family History Problem Relation Age of Onset Good Health Mother Good Health Father Other (factor 5) Sister Good Health Maternal Grandmother Diabetes Maternal Grandfather COPD Maternal Grandfather Thyroid Disease Paternal Grandmother Grave's Disease Good Health Paternal Grandfather Good Health Son Results PAST DIFFICULTY WITH ANESTHESIA: None Physical Exam BP 136/83 (Cuff Site: Right Arm, Position: Sitting, Cuff Size: Adult Large) Pulse 100 Wt 133.1 kg (293 lb 6.4 oz) LMP 02/16/2024 SpO2 100% BMI 42.48 kg/m Body mass index is 42.48 kg/m . Physical Exam General Appearance: Pleasant, alert, appropriate appearance for age. No acute distress Eye Exam: Normal external eye, conjunctiva, lids, cornea. BRAULIO. OroPharynx Exam: Dental hygiene adequate. Normal buccal mucosa. Normal pharynx. Neck Exam: Supple, no masses or nodes. Chest/Respiratory Exam: Normal chest wall and respirations. Clear to auscultation. Cardiovascular Exam: Regular rate and rhythm. S1, S2, no murmur, click, gallop, or rubs. Gastrointestinal Exam: Soft, nontender, no abnormal masses or organomegaly. Neurologic Exam: Nonfocal; symmetric DTRs, normal gross motor movement, tone, and coordination. No tremor. Psychiatric Exam: Normal. Alert and oriented, appropriate affect. Assessment / Plan The Pre-Op Tool Recommendations Intermediate Risk Procedure Risk of CV Complication (RCRI) 0.5% Current Cardiac Status Good exertional capacity ( > 4 mets ) Cardiac History No history of coronary artery disease Labs HGB within last 30 days EKG Not indicated CXR Not indicated Stress Testing Not indicated * Testing recommendations are intended to assist, but not direct, clinical decisions. Type & Screen should be obtained by Anesthesia only if the risk of transfusion is > 5% for the procedure Hold Aspirin the morning of the procedure. Hold Lovenox per surgeon (12 hours prior to procedure) Take your other medications as usual prior to the procedure Anticoagulation / Bridging Procedure date: Thrombotic Risk Factor(s): History of venous thromboembolism: Single VTE > 3 months ago or recurrent DVT * Medication recommendations are not intended to be exhaustive; they are limited to common medications that are potentially dangerous if incorrectly managed Labs * Data supports the elimination of 'routine' laboratory testing in favor of focused 'indicated' testing (Anesth Analg. 2009;108:467-75; NICE guideline: Routine preoperative tests for elective surgery 2016. https://www.nice.org.uk/guidance/ng45 (accessed 10/23/2024). EKG * The ACC/AHA recommend against obtaining routine EKGs in patients undergoing low risk surgeries (JAC. 2023;84:5054-3452). Aspirin Management * In patients with a history of coronary stenting, TIA or CVA, and undergoing low or intermediate bleeding risk surgeries we recommend continuing aspirin. There may be other circumstances where it is reasonable to continue aspirin (NEJM. 2014;370:5984-8576; Matilde Momd Teacher Med. 2018;168:237-44; CHEST. 2021;162:d388-t524). P2Y12 Management * Chest. 2021;162:m139-v228; J 2024;92:213-9. Warfarin Management * Based on the BRIDGE trial our experts prefer not bridging CHADS 5-6 patients (JAC. 2015;66:1392-403; NEJM. 2015;373:823-33; CHEST 2021:162:a467-j447). DOAC Management * CHEST 2021;162:q171-e707. Stress Testing * There is no direct evidence to support benefit from either preoperative stress testing or prophylactic revascularization. For patients with known or suspected CAD our experts recommend stress testing only if it is indicated regardless of planed surgery. There may be special circumstances where it would be reasonable to pursue a cardiac work up ([facility]. 2023;84:4304-9449; [facility] 2024;92:213-90). Session ID: [id number] Endnotes and bibliography available upon request: [email or web address] Labs: pending ECG: no ICD-10-CM 1. Supervision of high-risk , third trimester (HC) O09.93 VAGINAL/RECTAL OB STREP PCR CANCELED: HEMOGLOBIN 2. Preop examination Z01.818 3. History of gestational hypertension Z87.59 CBC AND DIFFERENTIAL ALT (SGPT) AST (SGOT) CREATININE PROTEIN/CREAT RATIO,URINE 4. Factor V Leiden mutation affecting (HC) O99.119 D68.51 5. History of pulmonary embolus (PE) Z86.711 6. History of section Z98.891 Assessment & Plan Patient is cleared for planned procedure. Hematology recommendations for post- - Will continue anticoagulation until planned . - Resume Lovenox after per her [employer] [employer] providers for at least 6 weeks . - Transition to warfarin while , with INR checks as determined by the anticoagulation clinic, aiming for an INR between 2-3. - Switch to apixaban 2.5 mg twice daily for lifelong anticoagulation if choosing not to breast-feed or after completion of breast-feeding Electronically Signed by: Tomasa Gallegos MD 11/14/2024 [1] Past Surgical History: . Laterality Date Loop excisional electrocautery procedure, IUD removal 10/01/2022 Dr Post SECTION 03/14/2022 emergency under general anesthesia COLPOSCOPY 01/04/2021 YULIANA I, ECC Benign COLPOSCOPY 09/18/2023 benign; ECC suggestive of YULIANA I COLPOSCOPY 05/2022 YULIANA 2-3 COLPOSCOPY 05/2023 benign LEEP PROCEDURE 08/2022 YULIANA 2-3 TONSIL AND ADENOIDECTOMY 09/22/2000 TYMPANOSTOMY 06/20/1996 WISDOM TEETH EXTRACTION Progress Notes - OB Encounte r - 11/10/2024 - GA:35w4d 11/10/2024 - 35w4d - Tomasa Gallegos MD SUBJECTIVE: Silva Arana is a 29 y.o. female at 35+4 weeks. Here for follow up after being seen in the center for elevated blood pressure readings. Did not stay for 4 hours of monitoring due to staffing, but did have high readings >140/90. Home readings are 130-150/80-92 and her cuff is consistent with our cuff in clinic. Having some headaches, but improved with tylenol. No increase in swelling or abdominal pain. No vision changes See visit comments. 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 Per hematology recommendations, is on 120 mg daily dosing. Hx preeclampsia, on 162 mg ASA daily. blood pressure now with elevated readings on L&D and at home, reviewed signs/symptoms to watch for. Given known accurate home cuff, she is likely meeting criteria for gHTN, will discuss with OB about timing of delivery. Hx emergent , desires repeat, scheduled this , currently scheduled for 12/05 PLAN: labor signs and symptoms reviewed with patient including pain, cramping, bleeding or leaking fluid. RTC 1 weeks, will need preeclampsia labs and scheduled BPP at that visit.. Will also plan to do preop and GBS at that visit. Tomasa Gallegos MD .................... 11/10/2024 12:06 PM Progress Notes - OB Encounte r - 11/07/2024 - GA:35w1d 11/07/2024 - 35w1d - Tomasa Gallegos MD SUBJECTIVE: Silva Arana is a 29 y.o. female at 35+1 weeks. Home blood pressure are typically 120-130s/70-80s. No severe headaches, visual disturbances, upper abdominal pain. No concerns. See visit comments. 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 Per hematology recommendations, is on 120 mg daily dosing. Hx preeclampsia, on 162 mg ASA daily. blood pressure well controlled in clinic and at home. Today's reading is elevated from usual baseline, reviewed signs/symptoms to watch for and advised her to report any reading >140/90. Hx emergent , desires repeat, scheduled this , currently scheduled for 12/05 PLAN: labor signs and symptoms reviewed with patient including pain, cramping, bleeding or leaking fluid. RTC 1 weeks. Preop and GBS at next visit. Tomsaa Gallegos MD .................... 11/07/2024 2:44 PM Progress Notes - OB Encounte r - 10/31/2024 - GA:34w1d 10/31/2024 - 34w1d - Tomasa Gallegos MD SUBJECTIVE: Silva Arana is a 29 y.o. female at 34+1 weeks. No concerns. See visit comments. 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 Per hematology recommendations, is on 120 mg daily dosing. Hx preeclampsia, on 162 mg ASA daily. blood pressure well controlled in clinic and at home. Hx emergent , desires repeat, scheduled this , currently scheduled for 12/05 PLAN: labor signs and symptoms reviewed with patient including pain, cramping, bleeding or leaking fluid. RTC 1 weeks. Tomasa Gallegos MD .................... 10/31/2024 2:10 PM [facility] GA:33w1d 10/24/2024 - 33w1d - Tomasa Gallegos MD SUBJECTIVE: Silva Arana is a 29 y.o. female at 33+1 weeks. No concerns. See visit comments. 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 Per hematology recommendations, is on 120 mg daily dosing. Hx preeclampsia, on 162 mg ASA daily. blood pressure well controlled in clinic and at home. Hx emergent , desires repeat, scheduled this , currently scheduled for 12/02/ PLAN: labor signs and symptoms reviewed with patient including pain, cramping, bleeding or leaking fluid. Flu and RSV vaccines given today. RTC 1 weeks. Weekly BPP starting at 34 weeks, scheduled. Tomasa Gallegos MD .................... 10/24/2024 3:09 PM [facility] - GA:32w3d 10/19/2024 - 32w3d - Tomasa Gallegos MD SUBJECTIVE: Silva Arana is a 29 y.o. female at 32+3 weeks. No concerns. See visit comments. OBJECTIVE: see OB vitals flow sheet Growth US: Estimated weight 83rd percentile. Abdominal circumference 97th percentile. Femur length 5th percentile. 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 Per hematology recommendations, is on 120 mg daily dosing. Hx preeclampsia, on 162 mg ASA daily. blood pressure well controlled in clinic and at home. Hx emergent , desires repeat, scheduled this , currently scheduled for PLAN: labor signs and symptoms reviewed with patient including pain, cramping, bleeding or leaking fluid. RTC 1 weeks. Weekly BPP starting at 34 weeks, scheduled. Tomasa Gallegos MD .................... 10/19/2024 4:15 PM Progress Notes - OB Encounte r - 10/03/2024 - GA:30w1d 10/03/2024 - 30w1d - Tomasa Gallegos MD SUBJECTIVE: Silva Arana is a 28 y.o. female at 30+2 weeks. No concerns. See visit comments. 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 Per hematology recommendations, is on 120 mg daily dosing. Hx preeclampsia, on 162 mg ASA daily. blood pressure well controlled in clinic and at home. Hx emergent , desires repeat, scheduled this , currently scheduled for 12/03/19 PLAN: labor signs and symptoms reviewed with patient including pain, cramping, bleeding or leaking fluid. RTC 2 weeks. Growth ultrasound at 32 week, scheduled. Weekly BPP starting at 34 weeks, scheduled. Tomasa Gallegos MD .................... 10/03/2024 4:21 PM Progress Notes - OB Encounte r - 09/16/2024 - GA:27w5d 09/16/2024 - wd - Tomasa Glalegos MD SUBJECTIVE: Silva Arana is a 28 y.o. female at 27+5 weeks. No concerns. See visit comments. OBJECTIVE: see OB vitals flow sheet ultrasound from 08/29/24: EFW 857 grams, percentile: 66. 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 Per hematology recommendations, is on 120 mg daily dosing. Hx preeclampsia, on 162 mg ASA daily. blood pressure well controlled in clinic and at home. Hx emergent , desires repeat, scheduled this , currently scheduled for 12/02/2024 PLAN: labor signs and symptoms reviewed with patient including pain, cramping, bleeding or leaking fluid. TDaP today. Growth ultrasound at 32 weeks, scheduled. Weekly BPP starting 34 weeks, scheduled. RTC 2 weeks. Tomasa Gallegos MD .................... 09/16/2024 8:44 AM Progress Notes - OB Encounte r - 09/07/2024 - GA:26w3d 09/07/2024 - w3d - Tomasa Gallegos MD SUBJECTIVE: Silva Arana is a 28 y.o. female at 26+3 weeks. No concerns. See visit comments. 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 Per hematology recommendations, is on 120 mg daily dosing. (Problem list updated with recommendations) Hx preeclampsia, on 162 mg ASA daily. blood pressure well controlled in clinic and at home. Hx emergent , desires repeat, scheduled this . PLAN: labor signs and symptoms reviewed with patient including pain, cramping, bleeding or leaking fluid. Growth ultrasound at 32 weeks, scheduled. Weekly BPP starting 34 weeks, scheduled. shipper receiver consult for scheduled for 09/14/24 Diabetes, hemoglobin and syphilis screening today. RTC 4 weeks with TDaP Tomasa Gallegos MD .................... 09/07/2024 3:30 PM Progress Notes - OB Encounte r - 08/08/2024 - GA:22w1d 08/08/2024 - w1d - Tomasa Gallegos MD SUBJECTIVE: Silva Arana is a 28 y.o. female at 22+1 weeks. No concerns. See visit comments. Didn't get comments on her heparin level, but since it was lower than any of the treatment ranges, she increased lovenox to twice daily dosing. 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 Per hematology recommendations, is now on 120 mg twice daily dosing. Hx preeclampsia, on 162 mg ASA daily. blood pressure well controlled in clinic and at home. Hx emergent , desires repeat this . PLAN: labor signs and symptoms reviewed with patient including pain, cramping, bleeding or leaking fluid. RTC 4 weeks with diabetes, hemoglobin and syphilis screening. Consult with Oil [employer]st for repeat . Follow up ultrasound with [facility]. Patient will reach out to hematology to ensure she should be on twice daily lovenox, but based on her results, suspect she is correct in twice daily dosing. Tomasa Gallegos MD .................... 08/08/2024 3:39 PM Progress Notes - OB Encounte r - 07/04/2024 - GA:17w1d 07/04/2024 - 17w1d - Tomasa Gallegos MD SUBJECTIVE: Silva Arana is a 28 y.o. female at 17+1 weeks. No concerns. See visit comments. Reviewed consults from [facility] and hematology. OBJECTIVE: see OB vitals [...] Ob consult after that for repeat planning. Tomasa Gallegos MD .................... 07/04/2024 2:42 PM Progress Notes - OB Encounte r - 06/06/2024 - GA:13w1d 06/06/2024 - w1d - Tomasa Gallegos MD SUBJECTIVE: Silva Arana is a [...] helps with the nausea. RTC 4 weeks. Tomasa Gallegos MD .................... 06/06/2024 2:50 PM Progress [...] location): Home Distant site (telehealth provider location): [facility] Video start time (include am/pm designation): 8:58 AM Video end time (include am/pm designation): 9:08 AM [facility] CONSULT NOTE / 05/30/[address] Munoz, Below outlines my telehealth visit with Silva Arana on 05/30/2024 Please feel free to contact myself or one of my partners with any questions at [phone]. Patient's last menstrual period was 02/16/2024. Estimated Date of Delivery: 12/11/24 Gestational Age: 12w1d History of Present Illness: Silva Arana is a 28 y.o. female, at 12w1d gestation who is being seen at [facility] due to past medical history complicating current . [facility] CONSULT ON 05/30/24 [facility] PRECONCEPTION CONSULT 11/07/22 Support person name: [...] on Lexapro HSV- 2 months ago CRM- 04/08 new patient eval, had a +b-HCG, records scanned in PREVIOUS ULTRASOUNDS: 07/25/24 20w1d SPECIALISTS/CONSULTS: Heme Dr Urmila Tena [place] 2022? [place] 06/13/24 GENETICS: Carrier screening: scanned PERTINENT LABS: Labs reviewed? Yes Normal? Yes Blood type: A Rh Positive Antibody screen: Negative Non-[facility] labs need to be entered in [facility].? 05/10/24 Baseline PreE labs WNL x PCR [...] and kick counts. Will need growth US [id number] just had growth US on / HSV infection [facility] Encounter for Preconception Consultation 11/04/2022 [facility] PRECONCEPTION Virtual CONSULTATION ON 11/07/22 Previous [facility] CONSULTATION ON 01/08/22 with CB- gHTN REASON FOR CONSULT: prepreg consult for next mgmt TODAY'S APPOINTMENT: MD Consultation PRIMARY DIAGNOSIS: 27 y.o. Factor V, heterozygous 02/2022 Term C/S with Pre-E - gHTN - [facility] Supervision of high-risk 01/02/2022 [facility] CONSULTATION ON 01/08/22 REASON FOR CONSULT: [...] Comment: For additional information, please refer to http://education.Drillster/faq/WDX766 (This link is being provided for informational/ educational purposes only.) PHYSICAL EXAM: The patient is a healthy looking, Well Nourished, White/ female appearing her stated age. LMP 02/16/2024 Psychiatric: Alert and oriented x 3 Ultrasound: planned with [facility] on 07/25/24 Impression: 28 y.o. at [...] Targeted Level II ultrasound as planned with [facility] on 07/25/24. growth scans every 6 [...] 05/30/2024 - 12w1d - Elidia Kevin RN [facility] Consultation ~ Virtual visit, Identity Confirmed Silva having a consultation today due to h/o of multiple episodes of clots . She is currently @ 12w1d. Assessment Histories reviewed today include: Past Medical History, Past Surgical History, Social History and Family History and Obstetric History. Refer to the corresponding sections of the [facility] and the [facility] Navigator for details. Scheduled to speak with [...] MD @ 05/24/2024 3:22:46 PM (Electronically Signed) US OB 1ST TRI SINGLE TA Result [...] visit on 05/24/24 POCT Urinalysis Dipstick Only [[id number]] Collection Time: 05/24/24 2:52 PM Result Value [...] TA; Future - POCT Urinalysis Dipstick Only [[id number]]; Future - URINE CULTURE [27456.2]; Future - URINALYSIS MICROSCOPIC [49188.1] - routine; Future - TRICHOMONAS, CARLO, AND BACTERIAL VAGINOSIS BY ISSAC; Future - POCT Urinalysis Dipstick Only [[id number]] - URINE CULTURE [09319.2] - URINALYSIS MICROSCOPIC [39812.1] - routine - TRICHOMONAS, CARLO, AND BACTERIAL VAGINOSIS BY ISSAC Patient is having persistent left lower quadrant pain. Fortunately, ultrasound and UA are reassuring. Could be constipation, I have asked her to start miralax. Urine culture and TGC swab pending. Continue to monitor. RTC as scheduled for routine care Roseline Munoz MD .................... 05/24/2024 2:36 PM CC: [facility] Progress Notes - OB Encounte r - 05/10/2024 - GA:9w2d 05/10/2024 - 9w2d - Tomasa Gallegos MD FIRST OB VISIT HPI: Silva [...] and kick counts. Will need growth US [id number] just had growth US on / HSV infection [facility] Supervision of high-risk 01/02/2022 [facility] CONSULTATION ON 01/08/22 REASON FOR CONSULT: [...] continue through the end of this month. Tomasa Gallegos MD Last Filed Vital Signs Vital Sign Reading Time Taken Comments Blood Pressure 138/84 11/28/2024 11:13 AM CDT Pulse 83 11/28/2024 11:13 AM CDT Temperature 36.7 C (98 F) 07/04/2024 10:01 AM CDT Respiratory Rate 18 06/13/2024 8:25 AM CDT Oxygen Saturation 99% 11/28/2024 11: 13 AM CDT Inhaled Oxygen Concentration - - Weight 135.5 kg (298 lb 12.8 oz) 11/21/2024 2:37 PM CDT Height 177 cm (5' 9.69) 05/10/2024 9:17 AM CDT Body Mass Index 43.26 05/10/2024 9:17 AM CDT Plan of Treatment Upcoming Encounters Date Type Department Care Team (Late st Contact Info) Description 12/05/2024 10:45 AM CDT Office Visit [facility] [address] [place] [address] Tomasa Gallegos MD [address] [place] [address] Health Maintenance Due Date Last Done Comments Hepatitis C screening for age 18-79 10/05/2013 Depression screening for age 12+ 08/26/2024 08/27/2023, 03/29/2021, 12/28/2020, Additional history exists COVID-19 vaccine series (2023- season) 2024 BMI (ht and wt on same day) for age 18+ 05/10/2025 05/10/2024, 08/27/2023, 07/10/2023, Additional history exists Pap test for age 21-65 06/06/2025 , 06/06/2024, 09/18/2023, Additional history exists Tetanus booster 09/16/2034 09/16/2024, 12/0 07/2021, 07/16/2018, Additional history exists Hepatitis B series for 19+ Completed 06/07, 01/28/1996, 1995 HPV series for age 9-45 Completed 06/27/19 12, 03/10/2011, 12/23/2010 HIV for age 15-65 Completed 09/20/2021 Influenza Vaccine Completed 10/24/2024, , 02/25/2012, Additional history exists RSV vaccine for adults or Completed 10/24/2024 Pneumococcal series for age 6-49 Aged Out No longer eligible based on patient's age to complete this topic Medical Devices Explanted Type [facility] Administrator Device Identifier Shelf Expiration Date Model / Serial / Lot Iud Explanted:Qty: 1 on 10/01/2022 at [facility] Iud Explanted:Qty: 1 on 10/01/2022 by Vida Post MD at [facility] N/A: Uterus Procedures Procedure Name Priority Date/Time Associated Diagnosis Comments RED CELL MORPHOLOGY STAT 11/28/2024 1 1:50 AM CDT Gestational hypertension, third trimester (HC) PLATELET ESTIMATE STAT 11/28/2024 11: 50 AM CDT Gestational hypertension, third trimester (HC) MANUAL DIFFERENTIAL STAT 11/28/2024 1 1:50 AM CDT Gestational hypertension, third trimester (HC) CBC WITH AUTO DIFFERENTIAL STAT 11/28/2024 11:50 AM CDT Gestational hypertension, third trimester (HC) CBC WITH AUTO DIFFERENTIAL STAT 11/28/2024 11:50 AM CDT Gestational hypertension, third trimester (HC) CREATININE STAT 11/28/2024 11:18 AM CDT Gestational hypertension, third trimester (HC) ALT (SGPT) STAT 11/28/2024 11:18 AM CDT Gestational hypertension, third trimester (HC) AST (SGOT) STAT 11/28/2024 11:18 AM CDT Gestational hypertension, third trimester (HC) PATH TISSUE EXAM PLACENTA Routine 11/22/2024 8:06 AM CDT LAB TRACKING EVENT Routine 11/22/2024 8: 05 AM CDT SCAN-OPERATIVE/PROCED URE REPORT 11/22/2024 12:00 AM CDT US OB BIOPHYSICAL PROFILE SINGLE WO NST Routine 11/21/2024 1:55 PM CDT Supervision of high-risk , second trimester (HC) CBC WITH AUTO DIFFERENTIAL Routine 11/14/2024 2:54 PM CDT History of gestational hypertension PROTEIN/CREAT RATIO,URINE Routine 11/14/2024 2:54 PM CDT History of gestational hypertension CREATININE Routine 11/14/2024 2:54 PM CDT History of gestational hypertension AST (SGOT) Routine 11/14/2024 2:54 PM CDT History of gestational hypertension ALT (SGPT) Routine 11/14/2024 2:54 PM CDT History of gestational hypertension CBC WITH AUTO DIFFERENTIAL Routine 11/14/2024 2:54 PM CDT History of gestational hypertension VAGINAL/RECTAL OB STREP PCR Routine 11/14/2024 2:30 PM CDT Supervision of high-risk , third trimester (HC) US OB BIOPHYSICAL PROFILE SINGLE WO NST Routine 11/14/2024 2:00 PM CDT Supervision of high-risk , second trimester (HC) SCAN-LABORATORY REPORT 11/08/2024 12:00 AM CDT SCAN-LABORATORY REPORT 11/08/2024 12:00 AM CDT US OB BIOPHYSICAL PROFILE SINGLE WO NST Routine 11/07/2024 2:20 PM CDT Supervision of high-risk , second trimester (HC) US OB BIOPHYSICAL PROFILE SINGLE WO NST Routine 10/31/2024 2:06 PM CDT Supervision of high-risk , second trimester (HC) US OB FOLLOW UP ANY TRI SINGLE TA Routine 10/18/2024 4:00 PM CDT Supervision of high-risk , second trimester (HC) SCAN-LABORATORY REPORT 10/08/2024 12:00 AM CDT SCAN-LABORATORY REPORT 2024 12:00 AM CDT SCAN-LABORATORY REPORT 2024 12:00 AM CDT TREPONEMA PALLIDUM Routine 09/07/2024 4: 22 PM CDT Supervision of high-risk , second trimester (HC) GLUCOSE TOLERANCE, GESTATIONAL SCREEN 1H Routine 09/07/2024 4:22 PM CDT Supervision of high-risk , second trimester (HC) HEMOGLOBIN Routine 09/07/2024 4:22 PM CDT Supervision of high-risk , second trimester (HC) HPV HIGH RISK Routine 06/06/2024 3:05 PM CDT Cervical cancer screening ANTI HIV 1/2 Routine 09/20/2021 1:29 PM CDT Primigravida in first trimester (HC) from Last 3 Months or Most Recently Relevant to Health Maintenance Results * (ABNORMAL) CBC WITH AUTO DIFFERENTIAL (11/28/2024 11:50 AM CDT) Only the most recent of2 resultswithin the time period is included. WHITE BLOOD COUNT 7.3 4.5 - 11.0 thou/cu mm 11/28/2024 1:38 PM CDT [facility] RED BLOOD COUNT 3.48(L) 4.00 - 5.20 mil/cu mm 11/28/2024 1:38 PM [facility] HEMOGLOBIN 9.3(L) 12.0 - 16.0 g/dL 11/28/2024 1:38 PM [facility] HEMATOCRIT 29.9(L) 33.0 - 51.0 % 11/28/2024 1:38 PM [facility] MCV 86 80 - 100 fL 11/28/2024 1:38 PM [facility] MCH 26.7 26.0 - 34.0 pg 11/28/2024 1:38 PM [facility] MCHC 31.1(L) 32.0 - 36.0 g/dL 11/28/2024 1:38 PM [facility] RDW 13.9 11.5 - 15.5 % 11/28/2024 1:38 PM [facility] PLATELET COUNT 345 140 - 440 thou/cu mm 11/28/2024 1:38 PM [facility] MPV 9.7 6.5 - 11.0 fL 11/28/2024 1:38 PM [facility] Blood BLOOD SPECIMEN / Unknown [facility] / Unknown 11/28/2024 11:50 AM CDT 11/28/2024 11:50 AM CDT us Tomasa Gallegos MD HEMATOLOGY Final R esult [facility] [address] [place] [address] * (ABNORMAL) RED CELL MORPHOLOGY (11/28/2024 11:50 AM CDT) POLYCHROMASIA Slight 11/28/2024 1:38 PM [facility] RBC COMMENT Present(A) RBC morphology appears normal, RBC morphology within normal limits for newborns. 11/28/2024 1:38 PM [facility] LARGE PLATELETS Present 1:38 PM [facility] Blood BLOOD SPECIMEN / Unknown [facility] / Unknown 11/28/2024 11:50 AM CDT 11/28/2024 11:50 AM CDT Tomasa Gallegos MD [facility] [address] [place] [address] * PLATELET ESTIMATE (11/28/2024 11:50 AM CDT) Pathologist [facility] PLATELET ESTIMATE Adequate Adequate, No estimate 11/28/2024 1:38 PM T [facility] Blood BLOOD SPECIMEN / Unknown [facility] / Unknown 11/28/2024 11:50 AM CDT 11/28/2024 11:50 AM CDT Tomasa Gallegos MD [facility]ATOLOGY [facility] Performing Organization Address City/[facility]/ZIP Co de Phone Number [facility] [address] [place] [address] * (ABNORMAL) MANUAL DIFFERENTIAL (11/28/2024 11:50 AM CDT) Pathologist [facility] % NEUTROPHILS 59.0 % 11/28/2024 1:38 PM [facility] % LYMPHOCYTES 34.0 % 11/28/2024 1:38 PM [facility] % MONOCYTES 5.0 % 11/28/2024 1:38 PM [facility] % EOSINOPHILS 0.0 % 11/28/2024 1:38 PM [facility] % BASOPHILS 1.0 % 11/28/2024 1:38 PM [facility] % MYELOCYTES 1.0(H) <0.1 % 11/28/2024 1:38 PM [facility] NEUTROPHILS ABSOLUTE 4.3 1.7 - 7.0 thou/cu mm 11/28/2024 1:38 PM [facility] LYMPHOCYTES ABSOLUTE 2.5 0.9 - 2.9 thou/cu mm 11/28/2024 1:38 PM CDT [facility] MONOCYTES ABSOLUTE 0.4 <0.9 thou/cu mm 11/28/2024 1:38 PM CDT [facility] EOSINOPHILS ABSOLUTE 0.0 <0.5 thou/cu mm 11/28/2024 1:38 PM CDT [facility] BASOPHILS ABSOLUTE 0.1 <0.3 thou/cu mm 11/28/2024 1:38 PM CDT [facility] ABSOLUTE MYELOCYTES 0.1(H) <=0.0 thou/cu mm 11/28/2024 1:38 PM CDT [facility] Blood BLOOD SPECIMEN / Unknown [facility] / Unknown 11/28/2024 11:50 AM CDT 11/28/2024 11:50 AM CDT Tomasa Gallegos MD [facility]ATOLOGY [facility] Performing Organization Address [facility] Co de Phone Number [facility] [address] [place] [phone] * CREATININE (11/28/2024 11:18 AM CDT) Only the most recent of2 resultswithin the time period is included. eGFR >90 >90 mL/min/1.7 3m2 11/28/2024 12:58 PM CDT [facility] Comment:As of 2021, eG FR is calculated by the CKD-EPI creatinine equation without race adjustment. eGFR can be influenced by muscle mass, exercise, and diet. The reported eGFR is an estimation only and is only applicable if the renal function is stable. CREATININE 0.69 0.50 - 0.90 mg/dL 11/28/2024 12:58 PM CDT [facility] Blood BLOOD SPECIMEN / Unknown [facility] / Unknown 11/28/2024 11:18 AM CDT 11/28/2024 11:18 AM CDT Tomasa Gallegos MD [facility]STR[facility] Performing Organization Address [facility] Co de Phone Number [facility] [address] [place] [id number] * ALT (SGPT) (11/28/2024 11:18 AM CDT) Only the most recent of2 resultswithin the time period is included. ALT (SGPT) 13 10 - 35 IU/L 11/28/2024 12:58 PM CDT [facility] Blood BLOOD SPECIMEN / Unknown [facility] / Unknown 11/28/2024 11:18 AM CDT 11/28/2024 11:18 AM CDT Tomasa Gallegos MD CHEMISTRY Final R [facility] [address] [place] [address] * AST (SGOT) (11/28/2024 11:18 AM CDT) Only the most recent of2 resultswithin the time period is included. AST (SGOT) 18 10 - 35 IU/L 11/28/2024 12:58 PM CDT [facility] Blood BLOOD SPECIMEN / Unknown [facility] / Unknown 11/28/2024 11:18 AM CDT 11/28/2024 11:18 AM CDT Tomasa Gallegos MD CHEMISTRY [facility] [address] [place] [address] * PATH TISSUE EXAM PLACENTA (11/22/2024 8:06 AM CDT) Case Report Pathology Report Case: [id number] Authorizing Provider: Sailaja Martino Collected: 11/22/2024 Marie Ang MD Ordering Location: [facility] Received: 11/22/2024 1421 Pathologist: Silvano Edmonds MD Specimen: Placenta 11/24/2024 4:05 PM CDT [facility] Final Diagnosis A) PLACENTA, MODE OF DELIVERY NOT SPECIFIED: 1. Third trimester bustos placenta with the following characteristics: a. Weight: 680 grams (37 week 10-90th percentile weight range, 391 - 566 grams) b. Membranes/ surface: Negative for chorioamnionitis c. Umbilical cord: Three vessel cord Negative for funisitis d. 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 Decidua/basal plate: No diagnostic abnormalities identified 11/24/2024 4:05 PM CDT [facility] at 1605 CDT Comment The patient's clinical history of hypertension is noted. Some histologic features that can be associated with maternal hypertensive disorders include decidual vasculopathy, infarcts, abruption, villous maldevelopment, and small placental size. In this case, these features were not seen. Intraplacental hematomas (intervillous thrombi) are usually innocuous when small and few in number, as in this case. 11/24/2024 4:05 PM CDT [facility] Clinical Information Indications for Placental Examination by Pathology / indications: Maternal indications: Hypertension Placental indications: Infectious specimen (e.g. maternal HIV or HCV): No Clinical information: Date of delivery: 11/22/2024 Time of delivery: 08 Type of delivery: Not specified Live born: Gestational age: 37 weeks weight of infant(s): 3730 grams Sex of infant (s): Male Pertinent Maternal History: Maternal parity: Diabetes: No Hypertension: Yes Eclampsia: No Smoking: No 11/24/2024 4:05 PM CDT [facility] Gross Description A) Received in formalin, labeled with the patient's name and placenta, is a 22 x 22 x 2 cm, 680 g circular placenta with 30 cm long trivascular umbilical cord inserting centrally 9 cm from the margin. No cord knots or hemorrhages are seen. Juárez membranes insert marginally with a rupture point at the margin. The surface has a purplish blue appearance with 3 paracentral areas of subchorionic fibrin deposition ranging from 2 cm to 4.5 cm in greatest dimension (10% of surface is involved). The maternal surface is intact with small amounts of loosely adherent blood clot. On cut section, 2 paracentral indurated juárez lesions are identified measuring 1.3 cm and 1.5 cm (less than 5% of cut surfaces are involved). [employer] sections are submitted as follows: 1. Proximal and distal umbilical cord 2. Membranes 3. Insertion point of cord 4, 5. Sections from each of 3 paracentral areas of subchorionic fibrin deposition 6. Sections from each of 2 indurated juárez lesions, maternal surface 7, 8. Full-thickness sections through central portion of placenta TRB 11/22/2024 11/24/2024 4:05 PM CDT [facility] Microscopic Description The final diagnosis is based on microscopic examination of appropriate sections of all specimens. 11/24/2024 4:05 PM CDT [facility] Additional Information Interpreted at [facility] - [address] [facility] [address] [address] 11/24/2024 4:05 PM CDT [facility] Tissue SPECIMEN FROM PLACENTA / Unknown 11/22/2024 8:06 AM CDT 11/22/2024 2:21 PM CDT Sailaja Martino MD PATHOLOGY/CYTOLOGY Final Result Performing Organization Address [facility] Co de Phone Number [facility] [address] [address], [place] * LAB TRACKING EVENT (11/22/2024 8:05 AM CDT) Other (Other) Client Collect / Unknown 11/22/2024 8:05 AM CDT 11/22/2024 1:06 PM CDT Sailaja Martino MD LAB BILL ONLY Fi nal Result Performing Organization Address City/[facility]/ZIP Co de Phone Number [facility] [address] [place] [phone], [place] * SCAN-OPERATIVE/PROCEDURE REPORT (11/22/2024 12:00 AM CDT) us Scanner OTHER Final Result * US OB BIOPHYSICAL PROFILE SINGLE WO NST (11/21/2024 1:55 PM CDT) Only the most recent of4 resultswithin the time period is included. Anatomical Region Laterality Modality Ultrasound 11/21/2024 8:48 PM CDT Impressions 11/21/2024 8:48 PM CDT Normal biophysical profile score of 8 out of 8. Dictated by Silvano Lr MD @ 11/21/2024 8:48:14 PM (Electronically Signed) Narrative 11/21/2024 8:48 PM CDT For Patients: As a result of the Cures Act, medical imaging exams and procedure reports are released immediately into your electronic medical record. You may view this report before your referring provider. If you have questions, please contact your health care provider. INDICATION: Supervision of high-risk , second trimester COMPARISON: 11/14/2024 TECHNIQUE: Real-time navarro-scale imaging of the obstetrical pelvis was performed transabdominal performed without non-stress testing. FINDINGS: Sonographic imaging demonstrates a single living intrauterine gestation. Fetus demonstrates a regular cardiac rate of 134 beats per minute. Fetus has a vertex position. The amniotic fluid volume appears normal and there is a single deepest pocket measurement of 6.8 cm. The fetus was active and demonstrated normal breathing movements. There was normal flexion and extension of the trunk and extremities. Procedure Note Silvano Lr MD - 11/21/2024 For Patients: As a result of the Cures Act, medical imagingexams and procedure reports are released immediately into your electronicmedical record. You may view this report before your referring provider.If you have questions, please contact your health care provider. INDICATION: Supervision of high-risk , second trimester COMPARISON: 11/14/2024 TECHNIQUE: Real-time navarro-scale imaging of the obstetrical pelvis was performedtransabdominal performed without non-stress testing. FINDINGS: Sonographic imaging demonstrates a single living intrauterine gestation.Fetus demonstrates a regular cardiac rate of 134 beats per minute. Fetushas a vertex position. The amniotic fluid volume appears normal and thereis a single deepest pocket measurement of 6.8 cm. The fetus was activeand demonstrated normal breathing movements. There was normal flexion andextension of the trunk and extremities. IMPRESSION: Normal biophysical profile score of 8 out of 8. Dictated by Silvano Lr MD @ 11/21/2024 8:48:14 PM (Electronically Signed) Tomasa Gallegos MD US Final R esult * (ABNORMAL) PROTEIN/CREAT RATIO,URINE (11/14/2024 2:54 PM CDT) Pathologist [facility] PROTEIN QUANT,RAND URINE 15(H) 1 - 14 mg/dL 11/15/2024 7:52 AM CDT [facility] CREAT,RANDOM URINE 71.0 28.0 - 217.0 mg/dL 11/15/2024 7:52 AM CDT [facility] PROT/CREAT RATIO,UR 0.2(H) <0.2 11/15/2024 7:52 AM CDT [facility] Urine URINE SPECIMEN / Unknown Non-Blood / Unknown 11/14/2024 2:54 PM CDT 11/14/2024 2:54 PM CDT us Tomasa Gallegos MD URINE Final R esult Performing Organization Address City/[facility]/ZIP Co de Phone Number [facility] [address] [address], [place] * VAGINAL/RECTAL OB STREP PCR (11/14/2024 2:30 PM CDT) Pathologist [facility] Vaginal/Rectal OB Strep B PCR Negative 11/16/2024 9:21 AM CDT [facility] Other (Vaginal/Rectal) Non-Blood / Unknown 11/14/2024 2:30 PM CDT 11/14/2024 3:15 PM CDT us Tomasa Gallegos MD MICROBIOLOGY Final R esult Performing Organization Address City/[facility]/ZIP Co de Phone Number [facility] [address] [address], [place] * SCAN-LABORATORY REPORT (11/08/2024 12:00 AM CDT) Only the most recent of5 resultswithin the time period is included. us Scanner OTHER Final Result * US OB FOLLOW UP ANY TRI SINGLE TA (10/18/2024 4:00 PM CDT) Anatomical Region Laterality Modality , 2or 3 TRIMESTER Ultrasound 10/19/2024 6:46 AM CDT Impressions 10/19/2024 6:46 AM CDT Sonographic gestational age 33 weeks 6 days and sonographic due date 11/30/2024. Sonographic age 11 days ahead of the clinical age. Estimated weight 83rd percentile. Abdominal circumference 97th percentile. Femur length 5th percentile. Dictated by Silvano Lr MD @ 10/19/2024 6:46:17 AM (Electronically Signed) Narrative 10/19/2024 6:46 AM CDT For Patients: As a result of the Cures Act, medical imaging exams and procedure reports are released immediately into your electronic medical record. You may view this report before your referring provider. If you have questions, please contact your health care provider. INDICATION: Third trimester scan, evaluate growth. COMPARISON: 08/29/2024 TECHNIQUE: Real-time navarro-scale imaging of the fetus was performed transabdominal FINDINGS: Sonographic imaging demonstrates a single living intrauterine gestation. Fetus demonstrates a regular cardiac rate of 144 beats per minute. Fetus has a vertex position. The placenta lies anterior without evidence of placenta previa. Amniotic fluid volume appears normal and there is a single deepest vertical pocket: 5.6 cm. The estimated weight is 2249 gm which lies at the 83rd%. On the prior OB ultrasound exam dated 08/29/2024 the estimated weight was at the 70th%. BPD 90th percentile. HC 91st percentile. AC 97th percentile. FL is 5th percentile. The HC/AC ratio measures 1.02 range (0.96-1.17). Procedure Note Silvano Lr MD - 10/19/2024 For Patients: As a result of the Cures Act, medical imagingexams and procedure reports are released immediately into your electronicmedical record. You may view this report before your referring provider.If you have questions, please contact your health care provider. INDICATION: Third trimester scan, evaluate growth. COMPARISON: 08/29/2024 TECHNIQUE: Real-time navarro-scale imaging of the fetus was performed transabdominal FINDINGS: Sonographic imaging demonstrates a single living intrauterine gestation.Fetus demonstrates a regular cardiac rate of 144 beats per minute. Fetushas a vertex position. The placenta lies anterior without evidence ofplacenta previa. Amniotic fluid volume appears normal and there is asingle deepest vertical pocket: 5.6 cm. The estimated weight is 2249gm which lies at the 83rd%. On the prior OB ultrasound exam dated08/29/2024 the estimated weight was at the 70th%. BPD 90thpercentile. HC 91st percentile. AC 97th percentile. FL is 5th percentile.The HC/AC ratio measures 1.02 range (0.96-1.17). IMPRESSION: Sonographic gestational age 33 weeks 6 days and sonographic due date11/30/2024. Sonographic age 11 days ahead of the clinical age. Estimated weight 83rd percentile. Abdominal circumference 97thpercentile. Femur length 5th percentile. Dictated by Silvano Lr MD @ 10/19/2024 6:46:17 AM (Electronically Signed) Tomasa Gallegos MD Final R esult * TREPONEMA PALLIDUM (09/07/2024 4:22 PM CDT) TREPONEMA PALLIDUM Non-Reacti ve Non-Reacti ve 09/07/2024 10:57 PM CDT [facility] Blood BLOOD SPECIMEN / Unknown [facility] / Unknown 09/07/2024 4:22 PM CDT 09/07/2024 4:22 PM CDT Tomasa Gallegos MD SEND OUTS Final R esult [facility] [address] [place] [address], * (ABNORMAL) HEMOGLOBIN (09/07/2024 4:22 PM CDT) HEMOGLOBIN 10.7(L) 11.7 - 15.5 g/dL [facility] Blood BLOOD SPECIMEN / Unknown 09/07/2024 4:22 PM CDT 09/07/2024 4:23 PM CDT Tomasa Gallegos MD HEMATOLOGY Final R esult [facility] [address] [place] [address], [place] [phone] [facility] [address] [place] [address] * GLUCOSE TOLERANCE, GESTATIONAL SCREEN 1H (09/07/2024 4:22 PM CDT) GLUCOSE, GESTATIONAL SCREEN (50G)-140 CUTOFF 125 <140 mg/dL [facility] Blood BLOOD SPECIMEN / Unknown 09/07/2024 4:22 PM CDT 09/07/2024 4:23 PM CDT us Tomasa Gallegos MD CHEMISTRY Final R esult Performing Organization Address [facility]/ZIP Co de Phone Number [facility] [address] [place] [address], [place] [phone] [facility] [address] [place] [address] * (ABNORMAL) HPV HIGH RISK (06/06/2024 3:05 PM CDT) TYPE 16 Negative Negative 06/09/2024 2:55 PM CDT [facility] TYPE 18 Negative Negative 06/09/2024 2:55 PM CDT [facility] OTHER HIGH RISK TYPES Positive(A) Negative 06/09/2024 2:55 PM CDT [facility] Other (Cervical) Non-Blood / Unknown 06/06/2024 3:05 PM CDT 06/07/2024 9:56 AM CDT Narrative [facility] - 06/09/2024 2:55 PM CDT Specimen is positive for the DNA of any one of, or combination of, the following high risk HPV types: 31, 33, 35, 39, 45, 51, 52, 56, 58, 59, 66, 68. HPV types 16 and 18 DNA were undetectable or below the pre-set threshold. Methodology: Venecia Deidra 4800 HPV Test us Tomasa Gallegos MD MICROBIOLOGY Final R esult [facility] [address] [place] [address], * ANTI HIV 1/2 (09/20/2021 1:29 PM CDT) HIV-1/HIV-2 ANTIBODY Non-Reacti ve Non-Reacti ve 09/21/2021 11:27 AM CDT [facility] Comment:HIV-1 p24 and HIV-1/ HIV-2 Ab not detected. Blood BLOOD SPECIMEN / Unknown Venipuncture / Unknown 09/20/2021 1:29 PM CDT 09/20/2021 1:39 PM CDT us Mercy Yeung DO SEND OUTS Final Resu lt [facility] 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
--- NOTE | 2024-12-02 18:33 | ED.CHESTPAIN ---
HPI - Chest Pain General Chief Complaint: Hypertension Stated Complaint: High BP Time Seen by Provider: 12/02/24 17:38 History of Present Illness HPI narrative: Patient is a 29-year-old woman who delivered her 2nd baby 10 days ago. She developed some hypertension at the end of her and was treated with nifedipine 30 mg daily. Her blood pressures have been in the 140 range systolic at home. She has really had no significant symptoms and denies headache chest pain shortness a breath nausea vomiting or weakness. She is breast-feeding and otherwise feeling fine. She is in today as she is been following her blood pressures at home and they have been trending high. Related Data Home Medications ?Medication ?Instructions ?Recorded ?Confirmed docusate sodium 100 mg capsule 100 mg PO DAILY 03/12/22 12/02/24 (Colace) escitalopram oxalate 10 mg tablet 10 mg PO DAILY 05/19/23 12/02/24 (Lexapro) enoxaparin 120 mg/0.8 mL 120 mg subcut DAILY 02/19/24 12/02/24 subcutaneous syringe docosahexaenoic acid 1 cap PO DAILY 08/07/24 11/22/24 ferrous sulfate 325 mg (65 mg 325 mg PO QDAY 09/14/24 12/02/24 iron) tablet Previous Rx's ?Medication ?Instructions ?Recorded ibuprofen 600 mg tablet 600 mg PO Q6H PRN Pain #60 tabs 11/24/24 nifedipine 30 mg tablet,extended 30 mg PO QDAY #30 tabs 11/27/24 release Allergies Allergy/AdvReac Type Severity Reaction Status Date / Time No Known Drug Allergies Allergy Verified 12/02/24 17:49 Review of Systems Status of ROS Reports: 10 or more systems reviewed and unremarkable except as noted in History and below [facility] Medical History Pre-eclampsia affecting puerperium ?O14.95 - Unspecified pre-eclampsia, complicating the puerperium (ICD-10) History of pulmonary embolism ?Z86.711 - Personal history of pulmonary embolism (ICD-10) History of abnormal cervical Pap smear (12/28/20) ?Z87.42 - Personal history of other diseases of the female genital tract (ICD-10) Heterozygous factor V Leiden mutation ?D68.51 - Activated protein C resistance (ICD-10) Anxiety ?F41.9 - Anxiety disorder, unspecified (ICD-10) 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 - Herpesviral infection of urogenital system, unspecified (ICD-10) Surgical History History of delivery ?Z98.891 - History of uterine scar from previous surgery (ICD-10) S/P section (03/14/22) ?Z98.891 - History of uterine scar from previous surgery (ICD-10) Hx of tympanostomy ?Z98.890 - Other specified postprocedural states (ICD-10) [place] teeth extracted ?K08.409 - Partial loss of teeth, unspecified cause, unspecified class (ICD-10) H/O colposcopy with cervical biopsy ?Z98.890 - Other specified postprocedural states (ICD-10) Hx of tonsillectomy ?Z90.89 - Acquired absence of other organs (ICD-10) 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 What is your current living situation?: I presently have a place to live Problems where you live: no known problems In the past 12 months, utilities in danger of being shut off: no In past 12 months, lack of transportation kept you from medical appts, meetings, work, or getting things needed for daily living: no In the past 12 mos, have been you worried that your food would run out before you had money to buy more?: never true In the past 12 mos, the food you bought just didn't last and you didn't have money to buy more?: never true Smoking Status: Never smoker Do you use any of these nicotine containing products: None Second hand tobacco smoke exposure: No How often do you have a drink containing alcohol: never How many standard drinks containing alcohol do you have on a typical day: 1 or 2 How often do you have six or more drinks on one occasion: Never AUDIT-C Alcohol total score: 0 Non-prescribed substance use: denies use How often does anyone, including family, friends and others, physically hurt you: never How often does anyone, including family, friends and others, insult or talk down to you: never How often does anyone, including family, friends and others, threaten you with harm: never How often does anyone, including family, friends and others, scream or curse at you: never service: No Exam Narrative Exam Narrative: EXAM GENERAL: Patient appears comfortable and well. EYES: No scleral icterus. LYMPH: No supraclavicular or cervical lymphadenopathy. SKIN: Visible skin seen during exam normal or with benign process only. EXT: No dependent lower extremity pedal edema. HEART: Regular rate and rhythm with no murmurs, rubs, or gallops. LUNGS: Clear to auscultation bilaterally with no crackles or wheezes. ABD: Soft, non tender, non distended. PSYCH: Good eye contact, speech is not pressured. Const Vital Signs, click to edit/add: Vital Signs - 24 hr 12/02/24 17:51 12/02/24 18:28 Temperature 97.8 F Pulse Rate [Pulse Oximeter] 94 82 Respiratory Rate 18 16 Blood Pressure [Right Upper Arm] 137/86 125/70 Pulse Oximetry 99 98 Oxygen Delivery Method Room Air Room Air Course Course ED Course: I did call and discuss case with Obstetrics and they do recommend comprehensive metabolic panel CBC and serial blood pressure readings. Vital Signs Vital signs: Initial Vital Signs Temperature 97.8 F 12/02/24 17:51 Temperature Source Temporal Artery Scan 12/02/24 17:51 Pulse Rate 94 12/02/24 17:51 Respiratory Rate 18 12/02/24 17:51 Blood Pressure 137/86 12/02/24 17:51 Blood Pressure Mean 103 12/02/24 17:51 Pulse Oximetry 99 12/02/24 17:51 Oxygen Delivery Method Room Air 12/02/24 17:51 Vital Signs Temperature 97.8 F 12/02/24 17:51 Pulse Rate 94 12/02/24 17:51 Respiratory Rate 18 12/02/24 17:51 Blood Pressure 137/86 12/02/24 17:51 Pulse Oximetry 99 12/02/24 17:51 Oxygen Delivery Method Room Air 12/02/24 17:51 Temperature 97.8 F 12/02/24 17:51 Pulse Rate 82 12/02/24 18:28 Respiratory Rate 16 12/02/24 18:28 Blood Pressure 125/70 12/02/24 18:28 Pulse Oximetry 98 12/02/24 18:28 Oxygen Delivery Method Room Air 12/02/24 18:28 MDM - Chest Pain MDM Narrative Medical decision making narrative: Patient is a 2 para 2 woman who is approximately 10 days . Her was complicated by hypertension late in her and she was started on nifedipine 30 mg daily. Her blood pressures have been borderline in the 03/18/2039 range at home. She comes in today feeling fine but looking for further recommendations. I did call and visit with OBGYN in the [facility] CBC comprehensive metabolic panel both of which are stable. We do of a documentation of stable blood pressure control in the 115/75 range. She will be offered reassurance and asked to continue her nifedipine with primary care follow-up. Discharge Plan Discharge Clinical Impression: Hypertension Patient Disposition: Home, Self-Care Condition: Stable Instructions: Hypertension (ED) Additional Instructions: Continue current medications. Monitor blood pressure. Follow-up with your doctor this coming week. Activity Level: No Restrictions Discharge Diet: Regular Prescriptions: No Action enoxaparin 120 mg/0.8 mL syringe 120 mg subcut DAILY ferrous sulfate 325 mg (65 mg iron) tablet 325 mg PO QDAY escitalopram oxalate [Lexapro] 10 mg tablet 10 mg PO DAILY docosahexaenoic acid [ DHA] 1 cap PO DAILY ibuprofen 600 mg Tablet 600 mg PO Q6H PRN (Reason: Pain) Qty: 60 0RF docusate sodium [Colace] 100 mg capsule 100 mg PO DAILY nifedipine 30 mg tablet extended release 30 mg PO QDAY Qty: 30 0RF Follow Up/Referrals: Tomasa Gallegos MD [Primary Care Provider, Family Practice] Stand Alone Forms: [employer] Info Instructions
[2024-12-02 19:11] LABS: Hematocrit* 33.0 % (33.0-51.0); Hemoglobin* 10.4 gm/dL (12.0-16.0); Immature Granulocytes Abs Auto 0.04 K/uL (0.00-0.30); Immature Granulocytes Pct Auto 0.5 %; Lymphocytes Absolute Auto 2.52 K/uL (0.90-2.90); Mean Corpuscular HGB Conc 32 gm/dL (32-36); Mean Corpuscular Hemoglobin 27 pg (26-34); Mean Corpuscular Volume 84 fL (80-100); RDW Coefficient of Variation % 13.2 % (11.5-15.5); Red Blood Count* 3.93 m/uL (4.00-5.20); White Blood Count* 7.95 K/uL (4.50-11.00)
[2024-12-02 19:15] LABS: Slide Review Reflex No
[2024-12-02 19:32] LABS: Albumin* 4.0 g/dL (3.3-5.0); Chloride* 102 mmol/L (96-114); Potassium* 4.2 mmol/L (3.6-5.1); Sodium* 136 mmol/L (135-149)
[2024-12-02 19:34] LABS: Blood Urea Nitrogen* 16 mg/dL (5-24); Creatinine* 0.8 mg/dL (0.5-1.5); Est. Creatinine Clearance* 108.44; Estimated Glomerular Filt Rate 102 ml/min
[2024-12-02 19:35] LABS: Alanine Aminotransferase* 14 U/L (4-35); Alkaline Phosphatase* 92 U/L (40-150); Anion Gap 9 mEq/L (7-15); Aspartate Amino Transferase* 21 U/L (12-35); Bilirubin Total* 0.2 mg/dL (0.1-1.5); Calcium* 9.6 mg/dL (8.4-10.6); Carbon Dioxide* 25 mmol/L (20-32); Glucose* 95 mg/dL (60-115); Total Protein* 7.2 g/dL (6.0-8.3)
== END 2024-12-02 20:05 | disposition home or self-care (01) ==
PROVIDERS: Emergency Provider Internal Medicine; PCP Family Medicine
DX: O13.5 Gestational [pregnancy-induced] hypertension without significant proteinuria, complicating the puerperium (principal)
CPT/HCPCS: 36415; 80053; 85025; 99283